=== PATIENT | female | born 1935 | race Caucasian/White ===

== ENCOUNTER 2018-07-02 16:29 | Inpatient (IN) | payer OTHER ==
[2018-07-02] MEDS ORDERED: Vancomycin 1 gm/NS 200 ml 1 GM/200 ML BAG IVPB STA (17:36)
[2018-07-02 17:52] LABS: BASO # 0.1 K/uL (0.0-0.2); EOS % 0.2 % (0.0-4.0); HEMOGLOBIN 11.4 g/dL (11.0-16.0); LYMPH # 1.2 K/uL (1.0-4.3); LYMPH % 9.2 % (20.0-40.0); MEAN CELL VOLUME 87.1 fL (81.0-99.0); MEAN CORPUSCULAR HGB CONC 32.2 g/dL (33.0-37.0); MEAN PLATELET VOLUME 8.3 fL (7.2-11.7); MONO # 0.8 K/uL (0.0-0.8); NEUT % 83.6 % (50.0-75.0); PLATELET COUNT 305 K/uL (130-400); RBC 4.08 Mil/uL (3.80-5.20); RED CELL DISTRIBUTION WIDTH 13.8 % (11.5-14.5); WHITE BLOOD COUNT 13.2 K/uL (4.8-10.8)
--- NOTE | 2018-07-02 17:57 | C.PDOC ---
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 Patient denies fever, chills, chest pain and shortness of breath at this time. Time Seen by Provider: 07/02/18 17:03 Chief Complaint (Nursing): Lower Extremity Problem/Injury History Per: Patient History/Exam Limitations: no limitations Onset/Duration Of Symptoms: Other (three weeks ) Current Symptoms Are (Timing): Still Present Additional History Per: Patient Past Medical History Reviewed: Historical Data, Nursing Documentation, Vital Signs Vital Signs: Last Vital Signs Temp 99.6 F 07/02/18 16:38 Pulse 97 H 07/02/18 16:38 Resp 20 07/02/18 16:38 BP 145/64 07/02/18 16:38 Pulse Ox 99 07/02/18 16:38 - Medical History PMH: Arthritis, Diabetes, Gall Bladder Disease, HTN, Hypercholesterolemia, Osteoporosis Denies: Chronic Kidney Disease Surgical History: Cholecystectomy - [facility] Procedures CENTRAL VENOUS CATHETER PLACEMENT WITH GUIDANCE (11/06/13) CLOSED FX REDUCT HUMERUS (03/17/14) TOE AMPUTATION (11/06/13) Family History: States: Unknown Family Hx - Social History Hx Tobacco Use: No Hx Alcohol Use: No Hx Substance Use: No - Immunization History Hx Tetanus Toxoid Vaccination: No Hx Influenza Vaccination: No Hx Pneumococcal Vaccination: No Review Of Systems Constitutional: Negative for: Fever, Chills Cardiovascular: Negative for: Chest Pain Respiratory: Negative for: Shortness of Breath Skin: Positive for: Other (redness, swelling, and pain to left 1st toe) Physical Exam - Physical Exam Additional Physical Exam Comments: Constitutional: No acute distress. Head: Normocephalic. Atraumatic. Eyes: PERRL. ENT: Moist mucous membranes. Neck: Supple. Cardiovascular: Regular rate. Radial pulse 2+ bilaterally. Chest: No tenderness. Respiratory: Clear to auscultation bilaterally. GI: Soft. Nontender. Nondistended. Back: No CVA tenderness. Musculoskeletal: bullae, purulent discharge, erythema and tenderness to left 1st toe. amputated right 1st toe. Skin: No rash. Neurologic: Alert, no focal deficit. ED Course And Treatment - Laboratory Results Result Diagrams: 07/02/18 17:43 07/02/18 17:43 ECG: Interpreted By Me, Viewed By Me ECG Rhythm: Sinus Rhythm, L BBB Rate From EC O2 Sat by Pulse Oximetry: 99 (on RA) Pulse Ox Interpretation: Normal Medical Decision Making Medical Decision Making: Progress: Bloodwork, CXR, EKG ordered and reviewed. Vancomycin IVPB given. EKG: Normal Sinus Rhythm at rate 87bpm. Left bundle branch block. Dr. Ramirez accepts patient to his service. Disposition - Disposition Disposition: HOSPITALIZED Disposition Time: 18:45 Condition: GUARDED Forms: [employer] (Spanish) - Clinical Impression Clinical Impression: Cellulitis - Scribe Statement The provider has reviewed the documentation as recorded by the Scribe (Arianna Ramirez) Provider Attestation: All medical record entries made by the Scribe were at my direction and personally dictated by me. I have reviewed the chart and agree that the record accurately reflects my personal performance of the history, physical exam, medical decision making, and the department course for this patient. I have also personally directed, reviewed, and agree with the discharge instructions and disposition.
[2018-07-02 18:09] LABS: INR 1.1; PROTHROMBIN TIME 12.3 SECONDS (9.7-12.2)
[2018-07-02 18:36] LABS: ALB/GLOB RATIO 1.2 (1.0-2.1); ALBUMIN 4.3 g/dL (3.5-5.0); CALCIUM 9.1 mg/dl (8.6-10.4)
[2018-07-02] MEDS ORDERED: (Novolin R) Insulin Human Regular 100 units/ml vial SC STA (18:44)
[2018-07-02] MEDS ORDERED: (Novolin R) Insulin Human Regular 100 units/ml vial ONE (19:24)
[2018-07-02 19:49] LABS: BANDS 1 % (0-2); LYMPHOCYTE 12 % (20-40); MONOCYTE 4 % (0-10); NEUTROPHIL 83 % (50-75); PLATELET ESTIMATE NORMAL (NORMAL); TOTAL CELLS COUNTED 100
[2018-07-02] MEDS: (Novolog) Insulin Aspart, Recombinant 100 u/ml 10 ml vial SC SCH (22:37)
[2018-07-02] MEDS: Piperacill/Tazo 3.375gm in Dex 3.375 GM/50 ML BAG IVPB SCH (22:38)
[2018-07-03] MEDS: Piperacill/Tazo 3.375gm in Dex 3.375 GM/50 ML BAG IVPB SCH ×3 (05:27→22:25)
[2018-07-03] MEDS: (Novolog) Insulin Aspart, Recombinant 100 u/ml 10 ml vial SC SCH ×5 (07:47→21:22)
--- NOTE | 2018-07-03 09:39 | RAD ---
HISTORY: cellulitis COMPARISON: Chest x-ray performed 11/10/13 TECHNIQUE: Chest, one view. FINDINGS: Examination limited by habitus. LUNGS: No focal consolidation. 8 mm nodular opacity is seen at the level of the 2nd anterior rib. Please note that chest x-ray has limited sensitivity for the detection of pulmonary masses. PLEURA: No significant pleural effusion identified. No definite pneumothorax . CARDIOVASCULAR: Heart size appears within normal limits. No significant atherosclerotic calcification present. OSSEOUS STRUCTURES: Degenerative changes. VISUALIZED UPPER ABDOMEN: Unremarkable. OTHER FINDINGS: None. IMPRESSION: No focal consolidation. 8 mm nodular opacity is seen at the level of the 2nd anterior rib, possibly related to confluence of shadows. Outpatient CT of the chest may be considered for further evaluation if indicated. Study marked for PA review.
[2018-07-03] MEDS ORDERED: GlipiZIDE 2.5 mg Tab PO SCH (10:00)
[2018-07-03] MEDS ORDERED: FENOFIBRATE MICRONIZED 200 MG PO SCH (10:00)
--- NOTE | 2018-07-03 10:44 | CARD ---
APPROVED REPORT Date of service: 07/02/2018 EKG Measurement Heart [id number] <Conclusion> Normal sinus rhythm Possible Left atrial enlargement Left axis deviation Left bundle branch block Abnormal ECG
--- NOTE | 2018-07-03 18:29 | CP.PCM.HP ---
Past Patient History - Past Medical History & Family History Past Medical History?: Yes - Past Social History Smoking Status: Never Smoked - CARDIAC Hx Cardiac Disorders: Yes Hx Hypercholesterolemia: Yes Hx Hypertension: Yes - PULMONARY Hx Respiratory Disorders: No - NEUROLOGICAL Hx Neurological Disorder: No - HEENT Hx HEENT Problems: No - RENAL Hx Chronic Kidney Disease: No - ENDOCRINE/METABOLIC Hx Endocrine Disorders: Yes Hx Diabetes Mellitus Type 1: Yes - HEMATOLOGICAL/ONCOLOGICAL Hx Blood Disorders: No - INTEGUMENTARY Hx Dermatological Problems: No - MUSCULOSKELETAL/RHEUMATOLOGICAL Hx Musculoskeletal Disorders: Yes Hx Arthritis: Yes Hx Falls: Yes Hx Osteoporosis: Yes - GASTROINTESTINAL Hx Gastrointestinal Disorders: Yes Hx Gall Bladder Disease: Yes - GENITOURINARY/GYNECOLOGICAL Hx Genitourinary Disorders: No - PSYCHIATRIC Hx Psychophysiologic Disorder: No Hx Substance Use: No - SURGICAL HISTORY Hx Surgeries: Yes Hx Cholecystectomy: Yes Hx Orthopedic Surgery: Yes Other/Comment: right 1st toe amputation 2014 - ANESTHESIA Hx Anesthesia: Yes Hx Anesthesia Reactions: No Hx Malignant Hyperthermia: No Meds Allergies/Adverse Reactions: Allergies Allergy/AdvReac Type Severity Reaction Status Date / Time No Known Allergies Allergy Verified 07/02/18 16:41 Physical Exam - Constitutional Appears: Well - Head Exam Head Exam: ATRAUMATIC, NORMAL INSPECTION, NORMOCEPHALIC - Eye Exam Eye Exam: EOMI, Normal appearance, PERRL Pupil Exam: NORMAL ACCOMODATION, PERRL - ENT Exam ENT Exam: Mucous Membranes Moist, Normal Exam - Neck Exam Neck exam: Positive for: Normal Inspection - Respiratory Exam Respiratory Exam: Decreased Breath Sounds - Cardiovascular Exam Cardiovascular Exam: REGULAR RHYTHM, +S1, +S2 - GI/Abdominal Exam GI & Abdominal Exam: Diminished Bowel Sounds, Soft - Rectal Exam Rectal Exam: Deferred Results - Vital Signs Recent Vital Signs: Last Vital Signs Temp 98.7 F 07/03/18 15:00 Pulse 86 07/03/18 15:00 Resp 20 07/03/18 15:00 BP 134/70 07/03/18 15:00 Pulse Ox 96 07/03/18 15:00 - Labs Result Diagrams: 07/02/18 17:43 07/02/18 17:43 Labs: Laboratory Results - last 24 hr 07/02/18 07/02/18 07/02/18 17:43 17:43 20:48 Neutrophils % (Manual) 83 H Band Neutrophils % 1 Lymphocytes % (Manual) 12 L Monocytes % (Manual) 4 Platelet Estimate Normal Sodium 129 L Potassium 4.4 Chloride 91 L Carbon Dioxide 24 Anion Gap 18 BUN 26 H Creatinine 1.4 H Est GFR ( Amer) 44 Est GFR (Non-Af Amer) 36 POC Glucose (mg/dL) 477 H* Random Glucose 599 H* D Calcium 9.1 Total Bilirubin 0.9 AST 19 ALT 7 L D Alkaline Phosphatase 75 Total Protein 7.8 Albumin 4.3 Globulin 3.5 Albumin/Globulin Ratio 1.2 07/02/18 07/03/18 07/03/18 22:22 07:33 11:05 Neutrophils % (Manual) Band Neutrophils % Lymphocytes % (Manual) Monocytes % (Manual) Platelet Estimate Sodium Potassium Chloride Carbon Dioxide Anion Gap BUN Creatinine Est GFR ( Amer) Est GFR (Non-Af Amer) POC Glucose (mg/dL) 386 H 255 H 196 H Random Glucose Calcium Total Bilirubin AST ALT Alkaline Phosphatase Total Protein Albumin Globulin Albumin/Globulin Ratio 07/03/18 16:22 Neutrophils % (Manual) Band Neutrophils % Lymphocytes % (Manual) Monocytes % (Manual) Platelet Estimate Sodium Potassium Chloride Carbon Dioxide Anion Gap BUN Creatinine Est GFR ( Amer) Est GFR (Non-Af Amer) POC Glucose (mg/dL) 190 H Random Glucose Calcium Total Bilirubin AST ALT Alkaline Phosphatase Total Protein Albumin Globulin Albumin/Globulin Ratio
[2018-07-04] MEDS: Piperacill/Tazo 3.375gm in Dex 3.375 GM/50 ML BAG IVPB SCH ×3 (05:26→20:47)
[2018-07-04] MEDS: (Novolog) Insulin Aspart, Recombinant 100 u/ml 10 ml vial SC SCH ×4 (07:40→21:52)
--- NOTE | 2018-07-04 11:53 | CP.PCM.CON ---
History of Present Illness - History of Present Illness History of Present Illness: Podiatry consult note - Dr. Mckay 83F with pmhx of diabetes and arthritis seen and evaluated at bedside this AM for left hallux redness and blistering. States that she started noticing the redness and mild swelling around 3 weeks ago and that is has gotten worse over time. States that she wears tight shoes which she contributes to part of the reason her toe looks the way it does. States that the toe causes her minimal pain but she was concerned with infection as she had her right big toe amputated in the past. Denies n/v/f/c/sob/cp today and has no other acute complaints PMHx: above PSHx: right hallux amputation All: NKDA Past Patient History - Past Medical History & Family History Past Medical History?: Yes - Past Social History Smoking Status: Never Smoked - CARDIAC Hx Cardiac Disorders: Yes Hx Hypercholesterolemia: Yes Hx Hypertension: Yes - PULMONARY Hx Respiratory Disorders: No - NEUROLOGICAL Hx Neurological Disorder: No - HEENT Hx HEENT Problems: No - RENAL Hx Chronic Kidney Disease: No - ENDOCRINE/METABOLIC Hx Diabetes Mellitus Type 1: Yes - HEMATOLOGICAL/ONCOLOGICAL Hx Blood Disorders: No - INTEGUMENTARY Hx Dermatological Problems: No - MUSCULOSKELETAL/RHEUMATOLOGICAL Hx Arthritis: Yes - GASTROINTESTINAL Hx Gastrointestinal Disorders: Yes Hx Gall Bladder Disease: Yes - GENITOURINARY/GYNECOLOGICAL Hx Genitourinary Disorders: No - PSYCHIATRIC Hx Psychophysiologic Disorder: No Hx Substance Use: No - SURGICAL HISTORY Hx Surgeries: Yes Hx Cholecystectomy: Yes Hx Orthopedic Surgery: Yes Other/Comment: right 1st toe amputation 2013 - ANESTHESIA Hx Anesthesia: Yes Hx Anesthesia Reactions: No Hx Malignant Hyperthermia: No Meds Allergies/Adverse Reactions: Allergies Allergy/AdvReac Type Severity Reaction Status Date / Time No Known Allergies Allergy Verified 07/02/18 16:41 - Medications Medications: Current Medications Aspirin (Ecotrin) 81 mg PO DAILY [facility] Last Admin: 07/04/18 09:29 Dose: 81 mg Glipizide (Glucotrol) 5 mg PO DAILY [facility] Last Admin: 07/04/18 09:29 Dose: 5 mg Heparin Sodium (Porcine) (Heparin) 5,000 units SC Q12 [facility] Last Admin: 07/04/18 09:30 Dose: 5,000 units Home Med (Fenofibrate,Micronized [Fenofibrate]) 200 mg PO DAILY [facility] Piperacillin Sod/Tazobactam Sod (Zosyn 3.375 Gm Iv Premix) 3.375 gm in 50 mls @ 100 mls/hr IVPB Q8H [facility]; Protocol Last Admin: 07/04/18 05:26 Dose: 100 mls/hr Insulin Aspart (Novolog) 0 unit SC ACHS [facility]; Protocol Last Admin: 07/04/18 11:26 Dose: 2 units Metformin HCl (Glucophage Xr) 500 mg PO BIDCC [facility] Last Admin: 07/04/18 09:29 Dose: 500 mg Pioglitazone HCl (Actos) 45 mg PO DAILY [facility] Last Admin: 07/04/18 10:27 Dose: Not Given Rosuvastatin Calcium (Crestor) 10 mg PO HS [facility] Sitagliptin Phosphate (Januvia) 100 mg PO DAILY [facility] Sodium Hypochlorite (Dakins Solution 0.5%) 10 ml TOP DAILY [facility] Physical Exam - Constitutional Appears: Well, Non-toxic, No Acute Distress - Head Exam Head Exam: ATRAUMATIC, NORMOCEPHALIC - Extremities Exam Additional comments: LLE focused exam VASC: DP and PT pulses palpable; cap refill <3 seconds to all digits; temp gradient warm to warm; edema noted locally at the hallux DERM: blister formation appreciated at the hallux dorsally with closed superifical wound at the first MPJ; erythema noted to the digit; no tunneling, drainage, or clinical signs of infection noted ORTHO: mild pain ROM of the hallux, no pain on palpation of blister or wound NEURO: gross and protective sensation intact - Neurological Exam Neurological exam: Alert, Oriented x3 - Psychiatric Exam Psychiatric exam: Normal Affect, Normal Mood Results - Vital Signs Recent Vital Signs: Last Vital Signs Temp 97.6 F 07/04/18 07:44 Pulse 79 07/04/18 07:44 Resp 20 07/04/18 07:44 BP 121/70 07/04/18 07:44 Pulse Ox 95 07/04/18 07:44 - Labs Result Diagrams: 07/02/18 17:43 07/02/18 17:43 Labs: Laboratory Results - last 24 hr 07/03/18 07/03/18 07/04/18 16:22 20:54 07:28 POC Glucose (mg/dL) 190 H 220 H 280 H Assessment & Plan - Assessment and Plan (Free Text) Assessment: 83F with pmhx of diabetes and arthritis seen at bedside with 1) left hallux blister and 2) closed superficial pressure ulceration at first MPJ Plan: Patient seen and evaluated Discussed in detail with Dr. Mckay Afebrile, WBC 13.2 (07/02) Dakins ordered Dressed with saline soaked dressing and DSD Counseled on appropriate shoegear and diabetic footcare Abx and pain management per medicine Thank you for the consult Will continue to follow patient while in house Further recs per Dr. Mckay - Date & Time Date: 07/04/18 Time: 11:58
--- NOTE | 2018-07-04 14:23 | CP.PCM.CON ---
History of Present Illness - History of Present Illness History of Present Illness: Pt seen at bedside for eval of left foot abscess/osteo. Drained at bedside and did wound cultures. Will order stat x-rays, mri of left foot and arterial dopplers. Will decide on plan after testing comes back. Consulted Dr. Brunner for ID and Dr. Hobson for vasc eval. Will put in wound care orders and cont to monitor closely. Past Patient History - Past Medical History & Family History Past Medical History?: Yes - Past Social History Smoking Status: Never Smoked - CARDIAC Hx Cardiac Disorders: Yes Hx Hypercholesterolemia: Yes Hx Hypertension: Yes - PULMONARY Hx Respiratory Disorders: No - NEUROLOGICAL Hx Neurological Disorder: No - HEENT Hx HEENT Problems: No - RENAL Hx Chronic Kidney Disease: No - ENDOCRINE/METABOLIC Hx Diabetes Mellitus Type 1: Yes - HEMATOLOGICAL/ONCOLOGICAL Hx Blood Disorders: No - INTEGUMENTARY Hx Dermatological Problems: No - MUSCULOSKELETAL/RHEUMATOLOGICAL Hx Arthritis: Yes - GASTROINTESTINAL Hx Gastrointestinal Disorders: Yes Hx Gall Bladder Disease: Yes - GENITOURINARY/GYNECOLOGICAL Hx Genitourinary Disorders: No - PSYCHIATRIC Hx Psychophysiologic Disorder: No Hx Substance Use: No - SURGICAL HISTORY Hx Surgeries: Yes Hx Cholecystectomy: Yes Hx Orthopedic Surgery: Yes Other/Comment: right 1st toe amputation 2014 - ANESTHESIA Hx Anesthesia: Yes Hx Anesthesia Reactions: No Hx Malignant Hyperthermia: No Meds Allergies/Adverse Reactions: Allergies Allergy/AdvReac Type Severity Reaction Status Date / Time No Known Allergies Allergy Verified 07/02/18 16:41 - Medications Medications: Current Medications Aspirin (Ecotrin) 81 mg PO DAILY [facility] Last Admin: 07/04/18 09:29 Dose: 81 mg Glipizide (Glucotrol) 5 mg PO DAILY [facility] Last Admin: 07/04/18 09:29 Dose: 5 mg Heparin Sodium (Porcine) (Heparin) 5,000 units SC Q12 [facility] Last Admin: 07/04/18 09:30 Dose: 5,000 units Home Med (Fenofibrate,Micronized [Fenofibrate]) 200 mg PO DAILY [facility] Piperacillin Sod/Tazobactam Sod (Zosyn 3.375 Gm Iv Premix) 3.375 gm in 50 mls @ 100 mls/hr IVPB Q8H [facility]; Protocol Last Admin: 07/04/18 13:15 Dose: 100 mls/hr Insulin Aspart (Novolog) 0 unit SC ACHS [facility]; Protocol Last Admin: 07/04/18 11:26 Dose: 2 units Metformin HCl (Glucophage Xr) 500 mg PO BIDCC [facility] Last Admin: 07/04/18 09:29 Dose: 500 mg Pioglitazone HCl (Actos) 45 mg PO DAILY [facility] Last Admin: 07/04/18 10:27 Dose: Not Given Rosuvastatin Calcium (Crestor) 10 mg PO HS [facility] Sitagliptin Phosphate (Januvia) 100 mg PO DAILY [facility] Sodium Hypochlorite (Dakins Solution 0.5%) 0 ml TOP DAILY [facility] Results - Vital Signs Recent Vital Signs: Last Vital Signs Temp 97.6 F 07/04/18 07:44 Pulse 79 07/04/18 07:44 Resp 20 07/04/18 07:44 BP 121/70 07/04/18 07:44 Pulse Ox 95 07/04/18 07:44 - Labs Result Diagrams: 07/02/18 17:43 07/02/18 17:43 Labs: Laboratory Results - last 24 hr 07/03/18 07/03/18 07/04/18 16:22 20:54 07:28 POC Glucose (mg/dL) 190 H 220 H 280 H
--- NOTE | 2018-07-04 17:02 | MRI ---
Date of service: 07/04/2018 PROCEDURE: MRI of the left foot without contrast. HISTORY: abscess/osteo left 1st MPJ foot COMPARISON: No prior similar study available for comparison. X-ray of left foot was obtained on 07/04/2018 TECHNIQUE: Axial coronal and sagittal MRI images of the left foot were obtained without contrast administration. FINDINGS: There is a focal bony erosion surrounding with bone marrow edema at the lateral aspect of the distal 1st metatarsal bone suspicious for osteomyelitis. There is adjacent subcutaneous inflammatory changes and skin ulcer noted. No definite evidence of drainable fluid collection in this noncontrast study. Moderate hallux valgus deformity noted. There is mild subluxation at the 1st metatarsal-phalangeal joint noted. No evidence of other bone marrow edema or bony cortical erosion in rest of the left foot. Soft tissue edema noted at the mid and distal portion of the left foot. First toe moderate soft tissue swelling is also noted. Arthritic degenerative changes noted in the left foot. IMPRESSION: Findings suspicious for focal osteomyelitis at the lateral aspect of the distal 1st toe. Adjacent inflammatory changes and skin ulcer. Diffuse soft tissue edema in the mid and distal left foot. Mild subluxation at the 1st tarsal metatarsal joint.
--- NOTE | 2018-07-04 17:27 | RAD ---
Date of service: 07/04/2018 PROCEDURE: Left Foot Radiographs. HISTORY: osteo COMPARISON: Comparison is made to the previous study dated 11/05/2016 FINDINGS: BONES: Suspicious for small new erosion at the lateral aspect of the distal 1st toe adjacent to skin ulcer. Otherwise no significant interval changes. JOINTS: Hallux valgus deformity is again noted. Degenerative changes and mild subluxation at the of 1st to 3rd metatarsal-phalangeal joints is again noted. SOFT TISSUES: Normal. OTHER FINDINGS: None. IMPRESSION: Possible small bony erosion suggestive of osteomyelitis at the lateral aspect of the distal 1st toe. Adjacent skin ulcer and subcutaneous inflammatory changes.
--- NOTE | 2018-07-04 18:14 | CP.PCM.PN ---
Subjective - Date & Time of Evaluation Date of Evaluation: 07/04/18 Time of Evaluation: 08:00 - Subjective Subjective: clinically same Objective - Vital Signs/Intake and Output Vital Signs (last 24 hours): Temp Pulse Resp BP Pulse Ox 100.5 F H 79 20 128/71 96 07/04/18 17:05 07/04/18 16:00 07/04/18 16:00 07/04/18 16:00 07/04/18 16:00 Intake and Output: 07/04/18 07/04/18 06:59 18:59 Intake Total 200 Balance 200 - Medications Medications: Current Medications Acetaminophen (Tylenol 325mg Tab) 650 mg PO Q6 PRN PRN Reason: Fever >100.4 F Last Admin: 07/04/18 17:05 Dose: 650 mg Aspirin (Ecotrin) 81 mg PO DAILY [facility] Last Admin: 07/04/18 09:29 Dose: 81 mg Fenofibrate (Tricor) 48 mg PO DAILY [facility] Glipizide (Glucotrol) 5 mg PO DAILY [facility] Last Admin: 07/04/18 09:29 Dose: 5 mg Heparin Sodium (Porcine) (Heparin) 5,000 units SC Q12 [facility] Last Admin: 07/04/18 09:30 Dose: 5,000 units Piperacillin Sod/Tazobactam Sod (Zosyn 3.375 Gm Iv Premix) 3.375 gm in 50 mls @ 100 mls/hr IVPB Q8H [facility]; Protocol Last Admin: 07/04/18 13:15 Dose: 100 mls/hr Insulin Aspart (Novolog) 0 unit SC ACHS [facility]; Protocol Last Admin: 07/04/18 17:05 Dose: 2 units Metformin HCl (Glucophage Xr) 500 mg PO BIDCC [facility] Last Admin: 07/04/18 17:04 Dose: 500 mg Pioglitazone HCl (Actos) 45 mg PO DAILY [facility] Last Admin: 07/04/18 10:27 Dose: Not Given Rosuvastatin Calcium (Crestor) 10 mg PO HS [facility] Sitagliptin Phosphate (Januvia) 25 mg PO DAILY [facility] Last Admin: 07/04/18 17:04 Dose: 25 mg Sodium Hypochlorite (Dakins Solution 0.25%) 1 ml TOP QSHIFT [facility] - Labs Labs: 07/02/18 17:43 07/02/18 17:43 PT 12.3 SECONDS (9.7-12.2) H 07/02/18 17:43 INR 1.1 07/02/18 17:43 APTT 30 SECONDS (21-34) 07/02/18 17:43 - Constitutional Appears: Well - Head Exam Head Exam: ATRAUMATIC, NORMAL INSPECTION, NORMOCEPHALIC - Eye Exam Eye Exam: EOMI, Normal appearance, PERRL Pupil Exam: NORMAL ACCOMODATION, PERRL - ENT Exam ENT Exam: Mucous Membranes Moist, Normal Exam - Neck Exam Neck Exam: Full ROM, Normal Inspection. absent: Lymphadenopathy - Respiratory Exam Respiratory Exam: Decreased Breath Sounds - Cardiovascular Exam Cardiovascular Exam: REGULAR RHYTHM, +S1, +S2 - GI/Abdominal Exam GI & Abdominal Exam: Soft, Diminished Bowel Sounds - Rectal Exam Rectal Exam: Deferred
[2018-07-04] MEDS: Dakin's Topical 0.25%-Half Strength (480 ml) TOP SCH (21:11)
[2018-07-05] MEDS: Dakin's Topical 0.25%-Half Strength (480 ml) TOP SCH ×3 (06:16→21:51)
[2018-07-05] MEDS: Piperacill/Tazo 3.375gm in Dex 3.375 GM/50 ML BAG IVPB SCH ×3 (06:22→21:48)
[2018-07-05] MEDS: (Novolog) Insulin Aspart, Recombinant 100 u/ml 10 ml vial SC SCH ×4 (07:43→21:52)
[2018-07-05 08:25] LABS: BASO # 0.1 K/uL (0.0-0.2); BASO % 0.6 % (0.0-2.0); EOS # 0.2 K/uL (0.0-0.7); EOS % 1.1 % (0.0-4.0); HEMOGLOBIN 10.5 g/dL (11.0-16.0); LYMPH # 1.7 K/uL (1.0-4.3); LYMPH % 11.7 % (20.0-40.0); MEAN CELL VOLUME 86.4 fL (81.0-99.0); MEAN CORPUSCULAR HEMOGLOBIN 28.4 pg (27.0-31.0); MEAN CORPUSCULAR HGB CONC 32.9 g/dL (33.0-37.0); MEAN PLATELET VOLUME 7.9 fL (7.2-11.7); MONO # 0.8 K/uL (0.0-0.8); MONO % 5.5 % (0.0-10.0); NEUT # 11.5 K/uL (1.8-7.0); NEUT % 81.1 % (50.0-75.0); RBC 3.7 Mil/uL (3.80-5.20); RED CELL DISTRIBUTION WIDTH 13.9 % (11.5-14.5); WHITE BLOOD COUNT 14.2 K/uL (4.8-10.8)
--- NOTE | 2018-07-05 08:27 | CP.PCM.CON ---
History of Present Illness - History of Present Illness History of Present Illness: Vascular Surgery: Dr. Hobson Pt is an 83F with PMHx significant for DM & arthritis who presented to with complaints of Left foot pain and swelling around big toe. Pt states the pain and redness started about 2 months ago but has been getting worse. She contributes the problem to her tight shoes & states she had a similar issue in the past for which she needed R big toe amputation. Pt states she also noticed some purulent discharge from her Left big toe and decided to come to the hospital. She admits to ambulating but states it has been painful to walk on her left foot. Denies fevers/chills, chest pain or SOB. Vascular surgery called to evaluate for PVD. PMHx:as listed above PSHx: R hallux amputation SocialHx: denies smoking, drugs, EtOH NKDA Review of Systems - Review of Systems All systems: reviewed and no additional remarkable complaints except (as per HPI) Past Patient History - Past Medical History & Family History Past Medical History?: Yes - Past Social History Smoking Status: Never Smoked - CARDIAC Hx Cardiac Disorders: Yes Hx Hypercholesterolemia: Yes Hx Hypertension: Yes - PULMONARY Hx Respiratory Disorders: No - NEUROLOGICAL Hx Neurological Disorder: No - HEENT Hx HEENT Problems: No - RENAL Hx Chronic Kidney Disease: No - ENDOCRINE/METABOLIC Hx Diabetes Mellitus Type 1: Yes - HEMATOLOGICAL/ONCOLOGICAL Hx Blood Disorders: No - INTEGUMENTARY Hx Dermatological Problems: No - MUSCULOSKELETAL/RHEUMATOLOGICAL Hx Arthritis: Yes - GASTROINTESTINAL Hx Gastrointestinal Disorders: Yes Hx Gall Bladder Disease: Yes - GENITOURINARY/GYNECOLOGICAL Hx Genitourinary Disorders: No - PSYCHIATRIC Hx Psychophysiologic Disorder: No Hx Substance Use: No - SURGICAL HISTORY Hx Surgeries: Yes Hx Cholecystectomy: Yes Hx Orthopedic Surgery: Yes Other/Comment: right 1st toe amputation 2013 - ANESTHESIA Hx Anesthesia: Yes Hx Anesthesia Reactions: No Hx Malignant Hyperthermia: No Meds Allergies/Adverse Reactions: Allergies Allergy/AdvReac Type Severity Reaction Status Date / Time No Known Allergies Allergy Verified 07/02/18 16:41 - Medications Medications: Current Medications Acetaminophen (Tylenol 325mg Tab) 650 mg PO Q6 PRN PRN Reason: Fever >100.4 F Last Admin: 07/04/18 17:05 Dose: 650 mg Aspirin (Ecotrin) 81 mg PO DAILY [facility] Last Admin: 07/04/18 09:29 Dose: 81 mg Fenofibrate (Tricor) 48 mg PO DAILY [facility] Glipizide (Glucotrol) 5 mg PO DAILY [facility] Last Admin: 07/04/18 09:29 Dose: 5 mg Heparin Sodium (Porcine) (Heparin) 5,000 units SC Q12 [facility] Last Admin: 07/04/18 21:44 Dose: 5,000 units Piperacillin Sod/Tazobactam Sod (Zosyn 3.375 Gm Iv Premix) 3.375 gm in 50 mls @ 100 mls/hr IVPB Q8H [facility]; Protocol Last Admin: 07/05/18 06:22 Dose: 100 mls/hr Insulin Aspart (Novolog) 0 unit SC ACHS [facility]; Protocol Last Admin: 07/05/18 07:43 Dose: Not Given Metformin HCl (Glucophage Xr) 500 mg PO BIDCC [facility] Last Admin: 07/04/18 17:04 Dose: 500 mg Pioglitazone HCl (Actos) 45 mg PO DAILY [facility] Last Admin: 07/04/18 10:27 Dose: Not Given Rosuvastatin Calcium (Crestor) 10 mg PO HS [facility] Last Admin: 07/04/18 21:43 Dose: 10 mg Sitagliptin Phosphate (Januvia) 25 mg PO DAILY [facility] Last Admin: 07/04/18 17:04 Dose: 25 mg Sodium Hypochlorite (Dakins Solution 0.25%) 1 ml TOP QSHIFT [facility] Last Admin: 07/05/18 06:16 Dose: Not Given Physical Exam - Constitutional Appears: Well, No Acute Distress - Head Exam Head Exam: ATRAUMATIC, NORMOCEPHALIC - Eye Exam Eye Exam: Normal appearance - ENT Exam ENT Exam: Mucous Membranes Moist - Respiratory Exam Respiratory Exam: NORMAL BREATHING PATTERN - Cardiovascular Exam Cardiovascular Exam: RRR - GI/Abdominal Exam GI & Abdominal Exam: Soft. absent: Tenderness - Extremities Exam Additional comments: LLE: warm, hallux with erythema and pinpoint area of purulent drainage, tender to palpation, Non-palpable DP/PT, biphasic doppler signals in DP/PT RLE: warm, hallux amputation - Neurological Exam Neurological exam: Alert, Oriented x3 - Skin Skin Exam: Dry, Warm Results - Vital Signs Recent Vital Signs: Last Vital Signs Temp 98.8 F 07/05/18 08:01 Pulse 78 07/05/18 08:01 Resp 20 07/05/18 08:01 BP 147/69 07/05/18 08:01 Pulse Ox 95 07/05/18 08:01 - Labs Result Diagrams: 07/02/18 17:43 07/02/18 17:43 Labs: Laboratory Results - last 24 hr 07/04/18 07/04/18 07/04/18 11:07 16:45 21:13 POC Glucose (mg/dL) 156 H 188 H 128 H 07/05/18 07:10 POC Glucose (mg/dL) 72 Assessment & Plan - Assessment and Plan (Free Text) Assessment: 83F with Left hallux cellulitis/osteomylitis; eval for PVD Plan: - f/u MIGUEL ÁNGEL/PVRs - possible CTA if improvement in Cr - cont IV ABX - wound management per podiatry - d/w Dr. Jazlyn Pulliam
[2018-07-05 08:55] LABS: CALCIUM 8.7 mg/dl (8.6-10.4)
--- NOTE | 2018-07-05 09:47 | CP.PCM.PN ---
Subjective - Date & Time of Evaluation Date of Evaluation: 07/05/18 Time of Evaluation: 09:47 - Subjective Subjective: Podiatry progress note - Dr. Mckay 83F seen and evaluated at bedside this AM with Dr. Mckay. Resting comfortably. Denies pain or acute events overnight. States nurse changed dressing overnight. Denies n/v/f/c/sob/cp and has no other acute complaints. Objective - Vital Signs/Intake and Output Vital Signs (last 24 hours): Temp Pulse Resp BP Pulse Ox 98.8 F 78 20 147/69 95 07/05/18 08:01 07/05/18 08:01 07/05/18 08:01 07/05/18 08:01 07/05/18 08:01 - Medications Medications: Current Medications Acetaminophen (Tylenol 325mg Tab) 650 mg PO Q6 PRN PRN Reason: Fever >100.4 F Last Admin: 07/04/18 17:05 Dose: 650 mg Aspirin (Ecotrin) 81 mg PO DAILY [facility] Last Admin: 07/04/18 09:29 Dose: 81 mg Fenofibrate (Tricor) 48 mg PO DAILY [facility] Glipizide (Glucotrol) 5 mg PO DAILY [facility] Last Admin: 07/04/18 09:29 Dose: 5 mg Heparin Sodium (Porcine) (Heparin) 5,000 units SC Q12 [facility] Last Admin: 07/04/18 21:44 Dose: 5,000 units Piperacillin Sod/Tazobactam Sod (Zosyn 3.375 Gm Iv Premix) 3.375 gm in 50 mls @ 100 mls/hr IVPB Q8H [facility]; Protocol Last Admin: 07/05/18 06:22 Dose: 100 mls/hr Insulin Aspart (Novolog) 0 unit SC ACHS [facility]; Protocol Last Admin: 07/05/18 07:43 Dose: Not Given Metformin HCl (Glucophage Xr) 500 mg PO BIDCC [facility] Last Admin: 07/05/18 08:37 Dose: 500 mg Pioglitazone HCl (Actos) 45 mg PO DAILY [facility] Last Admin: 07/04/18 10:27 Dose: Not Given Rosuvastatin Calcium (Crestor) 10 mg PO HS [facility] Last Admin: 07/04/18 21:43 Dose: 10 mg Sitagliptin Phosphate (Januvia) 25 mg PO DAILY [facility] Last Admin: 07/04/18 17:04 Dose: 25 mg Sodium Hypochlorite (Dakins Solution 0.25%) 1 ml TOP QSHIFT [facility] Last Admin: 07/05/18 06:16 Dose: Not Given - Labs Labs: 07/05/18 08:05 07/05/18 08:05 PT 12.3 SECONDS (9.7-12.2) H 07/02/18 17:43 INR 1.1 07/02/18 17:43 APTT 30 SECONDS (21-34) 07/02/18 17:43 - Constitutional Appears: Non-toxic, No Acute Distress - Head Exam Head Exam: ATRAUMATIC - Extremities Exam Additional comments: LLE focused exam VASC: DP and PT pulses palpable; cap refill <3 seconds to all digits; temp gradient warm to warm; edema noted locally at the hallux DERM: pocket opened at first mpj medially that does not probe to bone but drained 3cc of pus today; blister deroofed, clinical signs of infection present, suspicion for deeper infection appreciated ORTHO: mild pain ROM of the hallux, no pain on palpation of blister or wound NEURO: gross and protective sensation diminished - Neurological Exam Neurological Exam: Alert, Awake - Psychiatric Exam Psychiatric exam: Normal Affect, Normal Mood Assessment and Plan - Assessment and Plan (Free Text) Assessment: 83F with left hallux ulceration, infected Plan: Patient seen and evaluated with Dr. Mckay Febrile overnight, afebrile today, WBC 14.2 Wound cultures pending Left foot MRI - possible osteomyelitis of first digit, not conclusive Left foot X-ray - osteoarthritic changes to first MPJ Dressing: Dakins soaked gauze, kerlix Plan: I and D of left hallux tomorrow NPO ordered Medical clearance appreciated Dr. Brunner consulted - recs appreciated Dr. Hobson consulted - vascular eval Arterial studies pending Podiatry to follow
[2018-07-05] MEDS ORDERED: Dakin's Topical 0.5%-Full Strength (480 ml) TOP SCH (10:00)
--- NOTE | 2018-07-05 10:24 | CP.PCM.PN ---
Subjective - Date & Time of Evaluation Date of Evaluation: 07/05/18 Time of Evaluation: 10:20 - Subjective Subjective: Pt seen at bedside for f/u left foot abscess/ulcer. Pt spiked a temp last night and WBC increase to 14.2. MRI is suspicious for Osteo-spoke with radiologist Dr. Rodriguez. Pt will need I+D of left foot abscess. Spoke with daughter(Valencia) and patient at bedside that we will try I+D of left foot infection and see how she responds. If the wound does not improve, she may need partial 1st Ray amp. Pt understands all risks and alternatives and consents to surgery. Heparin on hold and pt npo after midnight. Pt needs medical clearance by Dr. Avtar Ramirez. Objective - Vital Signs/Intake and Output Vital Signs (last 24 hours): Temp Pulse Resp BP Pulse Ox 98.8 F 78 20 147/69 95 07/05/18 08:01 07/05/18 08:01 07/05/18 08:01 07/05/18 08:01 07/05/18 08:01 - Medications Medications: Current Medications Acetaminophen (Tylenol 325mg Tab) 650 mg PO Q6 PRN PRN Reason: Fever >100.4 F Last Admin: 07/04/18 17:05 Dose: 650 mg Aspirin (Ecotrin) 81 mg PO DAILY [facility] Last Admin: 07/05/18 10:04 Dose: 81 mg Fenofibrate (Tricor) 48 mg PO DAILY [facility] Last Admin: 07/05/18 10:04 Dose: 48 mg Glipizide (Glucotrol) 5 mg PO DAILY [facility] Last Admin: 07/05/18 10:04 Dose: 5 mg Heparin Sodium (Porcine) (Heparin) 5,000 units SC Q12 [facility] Last Admin: 07/05/18 10:15 Dose: Not Given Piperacillin Sod/Tazobactam Sod (Zosyn 3.375 Gm Iv Premix) 3.375 gm in 50 mls @ 100 mls/hr IVPB Q8H [facility]; Protocol Last Admin: 07/05/18 06:22 Dose: 100 mls/hr Insulin Aspart (Novolog) 0 unit SC ACHS [facility]; Protocol Last Admin: 07/05/18 07:43 Dose: Not Given Metformin HCl (Glucophage Xr) 500 mg PO BIDCC [facility] Last Admin: 07/05/18 08:37 Dose: 500 mg Pioglitazone HCl (Actos) 45 mg PO DAILY [facility] Last Admin: 07/05/18 10:14 Dose: 45 mg Rosuvastatin Calcium (Crestor) 10 mg PO HS [facility] Last Admin: 07/04/18 21:43 Dose: 10 mg Sitagliptin Phosphate (Januvia) 25 mg PO DAILY [facility] Last Admin: 07/05/18 10:04 Dose: 25 mg Sodium Hypochlorite (Dakins Solution 0.25%) 1 ml TOP QSHIFT [facility] Last Admin: 07/05/18 06:16 Dose: Not Given - Labs Labs: 07/05/18 08:05 07/05/18 08:05 PT 12.3 SECONDS (9.7-12.2) H 07/02/18 17:43 INR 1.1 07/02/18 17:43 APTT 30 SECONDS (21-34) 07/02/18 17:43
--- NOTE | 2018-07-05 12:45 | CP.PCM.PN ---
Subjective - Date & Time of Evaluation Date of Evaluation: 07/05/18 Time of Evaluation: 08:15 - Subjective Subjective: clinically same Objective - Vital Signs/Intake and Output Vital Signs (last 24 hours): Temp Pulse Resp BP Pulse Ox 98.8 F 78 20 147/69 95 07/05/18 08:01 07/05/18 08:01 07/05/18 08:01 07/05/18 08:01 07/05/18 08:01 - Medications Medications: Current Medications Acetaminophen (Tylenol 325mg Tab) 650 mg PO Q6 PRN PRN Reason: Fever >100.4 F Last Admin: 07/04/18 17:05 Dose: 650 mg Aspirin (Ecotrin) 81 mg PO DAILY [facility] Last Admin: 07/05/18 10:04 Dose: 81 mg Fenofibrate (Tricor) 48 mg PO DAILY [facility] Last Admin: 07/05/18 10:04 Dose: 48 mg Glipizide (Glucotrol) 5 mg PO DAILY [facility] Last Admin: 07/05/18 10:04 Dose: 5 mg Heparin Sodium (Porcine) (Heparin) 5,000 units SC Q12 [facility] Last Admin: 07/05/18 10:15 Dose: Not Given Piperacillin Sod/Tazobactam Sod (Zosyn 3.375 Gm Iv Premix) 3.375 gm in 50 mls @ 100 mls/hr IVPB Q8H [facility]; Protocol Last Admin: 07/05/18 06:22 Dose: 100 mls/hr Insulin Aspart (Novolog) 0 unit SC ACHS [facility]; Protocol Last Admin: 07/05/18 11:42 Dose: Not Given Metformin HCl (Glucophage Xr) 500 mg PO BIDCC [facility] Last Admin: 07/05/18 08:37 Dose: 500 mg Pioglitazone HCl (Actos) 45 mg PO DAILY [facility] Last Admin: 07/05/18 10:14 Dose: 45 mg Rosuvastatin Calcium (Crestor) 10 mg PO HS [facility] Last Admin: 07/04/18 21:43 Dose: 10 mg Sitagliptin Phosphate (Januvia) 25 mg PO DAILY [facility] Last Admin: 07/05/18 10:04 Dose: 25 mg Sodium Hypochlorite (Dakins Solution 0.25%) 1 ml TOP QSHIFT [facility] Last Admin: 07/05/18 06:16 Dose: Not Given - Labs Labs: 07/05/18 08:05 07/05/18 08:05 PT 12.3 SECONDS (9.7-12.2) H 07/02/18 17:43 INR 1.1 07/02/18 17:43 APTT 30 SECONDS (21-34) 07/02/18 17:43 - Constitutional Appears: Well - Head Exam Head Exam: ATRAUMATIC, NORMAL INSPECTION, NORMOCEPHALIC - Eye Exam Eye Exam: EOMI, Normal appearance, PERRL Pupil Exam: NORMAL ACCOMODATION, PERRL - ENT Exam ENT Exam: Mucous Membranes Moist, Normal Exam - Neck Exam Neck Exam: Full ROM, Normal Inspection. absent: Lymphadenopathy - Respiratory Exam Respiratory Exam: Decreased Breath Sounds - Cardiovascular Exam Cardiovascular Exam: REGULAR RHYTHM, +S1, +S2 - GI/Abdominal Exam GI & Abdominal Exam: Soft, Diminished Bowel Sounds - Rectal Exam Rectal Exam: Deferred
--- NOTE | 2018-07-05 15:48 | CP.PCM.CON ---
History of Present Illness - History of Present Illness History of Present Illness: 83F with pmhx of diabetes and arthritis admitted for left hallux redness and blistering. States that she started noticing the redness and mild swelling around 3 weeks ago and that is has gotten worse over time. Was seen and evaluated for severe infection left hallux- r/o OM Had I and D done by Dr Mckay Arterial dopplers and MRI pending IV antibiotics ordered empirically PMHx: T2D HTN OA PSHx: right hallux amputation All: NKDA Review of Systems - Review of Systems All systems: reviewed and no additional remarkable complaints except - Constitutional Constitutional: As Per HPI - EENT Eyes: absent: As Per HPI, Blind Spots, Blurred Vision, Change in Vision, Decreased Night Vision, Diplopia, Discharge, Dry Eye, Exophthalmos, Floaters, Irritation, Itchy Eyes, Loss of Peripheral Vision, Pain, Photophobia, Requires Corrective Lenses, Sees Flashes, Spots in Vision, Tunnel Vision, Other Visual Disturbances, Loss of Vision, Other Ears: absent: As Per HPI, Decreased Hearing, Ear Discharge, Ear Pain, Tinnitus, Abnormal Hearing, Disequilibrium, Dizziness, Other Nose/Mouth/Throat: absent: As Per HPI, Epistaxis, Nasal Congestion, Nasal Discharge, Nasal Obstruction, Nasal Trauma, Nose Pain, Post Nasal Drip, Sinus Pain, Sinus Pressure, Bleeding Gums, Change in Voice, Dental Pain, Dry Mouth, Dysphagia, Halitosis, Hoarsness, Lip Swelling, Mouth Lesions, Mouth Pain, Odynophagia, Sore Throat, Throat Swelling, Tongue Swelling, Facial Pain, Neck Pain, Neck Mass, Other - Breasts Breasts: absent: As Per HPI, Change in Shape, Mass, Pain, Nipple Discharge, Nipple Inversion, Skin Changes, Swelling, Other - Cardiovascular Cardiovascular: absent: As Per HPI, Acrocyanosis, Chest Pain, Chest Pain at Rest, Chest Pain with Activity, Claudication, Diaphoresis, Dyspnea, Dyspnea on Exertion, Edema, Irregular Heart Rhythm, Pain Radiating to Arm/Neck/Jaw, Leg Edema, Leg Ulcers, Lightheadedness, Orthopnea, Palpitations, Paroxysmal Nocturnal Dyspnea, Pedal Edema, Radiating Pain, Rapid Heart Rate, Slow Heart Rate, Syncope, Other - Respiratory Respiratory: absent: As Per HPI, Cough, Dyspnea, Hemoptysis, Dyspnea on E xertion, Wheezing, Snoring, Stridor, Pain on Inspiration, Chest Congestion, Excessive Mucous Production, Change in Mucous Color, Pain with Coughing, Other - Gastrointestinal Gastrointestinal: absent: As Per HPI, Abdominal Pain, Belching, Bloating, Change in Bowel Habits, Change in Stool Character, Coffee Ground Emesis, Constipation, Cramping, Diarrhea, Dyspepsia, Dysphagia, Early Satiety, Excessive Flatus, Fecal Incontinence, Heartburn, Hematemesis, Hematochezia, Loose Stools, Melena, Nausea, Odynophagia, Temesmus, Vomiting, Other - Genitourinary Genitourinary: absent: As Per HPI, Change in Urinary Stream, Difficulty Urinating, Dysuria, Flank Pain, Hematuria, Pyuria, Nocturia, Urinary Incontinence, Urinary Frequency, Urinary Hesitance, Urinary Urgency, Voiding Freq/Small Amts, Freq UTI, Hx Renal/Bladder Calculi, Hx /Renal Surgery, Bladder Distension, Other - Reproductive: Female Reproductive:Female: absent: As Per HPI, Amenorrhea, Amenorrhea/ Control, Currently Menstual, Cycle <21 Days, Cycle >35 Days, Cycle Variable, Menses 1-7 Days, Menses >/= 8 Days, Menses Variable, Cycle > 4 Weeks Between, No Menses for 6 Months, Heavy Menses, Light Menses, Normal Menses, Spotting Between Cycles, S/P Hysterectomy, Menopausal, Post Menopausal, Premenarche, Abnormal Vaginal Bleeding, Dysmenorrhea, Dyspareunia, Genital Lesions, Genital Pruritis, Pelvic Pain, Prolapse Symptoms, Sexual Dysfunction, Vaginal Discharge, Vaginal Dryness, Vaginal Odor, Vaginal Pruritis, Other - Menstruation Menstruation: absent: As Per HPI, Amenorrhea, Amenorrhea/ Control, Currently Menstual, Cycle <21 Days, Cycle >35 Days, Cycle Variable, Menses 1-7 Days, Menses >/= 8 Days, Menses Variable, Cycle > 4 Weeks Between, No Menses for 6 Months, Heavy Menses, Light Menses, Normal Menses, Spotting Between Cycles, S/P Hysterectomy, Menopausal, Post Menopausal, Premenarche, Abnormal Vaginal Bleeding, Dysmenorrhea, Other - Musculoskeletal Musculoskeletal: As Per HPI - Integumentary Integumentary: As Per HPI - Neurological Neurological: absent: As Per HPI, Abnormal Gait, Abnormal Hearing, Abnormal Movements, Abnormal Speech, Behavioral Changes, Burning Sensations, Confusion, Convulsions, Disequilibrium, Dizziness, Numbness, Focal Weakness, Frequent Falls, Headaches, Lack of Coordination, Loss of Vision, Memory Loss, Paresth esias, Radicular Pain, Restless Legs, Sensory Deficit, Syncope, Tingling, Tremor, Vertigo, Weakness, Other Visual Disturbances, Other - Psychiatric Psychiatric: absent: As Per HPI, Abnormal Sleep Pattern, Anhedonia, Anxiety, Auditory Hallucinations, Behavioral Changes, Change in Appetite, Change in Libido, Confusion, Depression, Difficulty Concentrating, Hallucinations, Homicidal Ideation, Hopelessness, Irritability, Memory Loss, Mood Swings, Panic Attacks, Paranoia, Suicidal Ideation, Visual Hallucinations, Tactile Hallucinations, Other - Endocrine Endocrine: absent: As Per HPI, Change in Body Appearance, Change in Libido, Cold Intolorance, Deepening of Voice, Excessive Sweating, Fatigue, Flushing, Heat Intolorance, Increase in Ring/Shoe/Hat Size, Palpitations, Polydipsia, Polyphagia, Polyuria, Other - Hematologic/Lymphatic Hematologic: absent: As Per HPI, Easy Bleeding, Easy Bruising, Lymphadenopathy, Other Past Patient History - Past Medical History & Family History Past Medical History?: Yes - Past Social History Smoking Status: Never Smoked - CARDIAC Hx Cardiac Disorders: Yes Hx Hypercholesterolemia: Yes Hx Hypertension: Yes - PULMONARY Hx Respiratory Disorders: No - NEUROLOGICAL Hx Neurological Disorder: No - HEENT Hx HEENT Problems: No - RENAL Hx Chronic Kidney Disease: No - ENDOCRINE/METABOLIC Hx Diabetes Mellitus Type 1: Yes - HEMATOLOGICAL/ONCOLOGICAL Hx Blood Disorders: No - INTEGUMENTARY Hx Dermatological Problems: No - MUSCULOSKELETAL/RHEUMATOLOGICAL Hx Arthritis: Yes - GASTROINTESTINAL Hx Gastrointestinal Disorders: Yes Hx Gall Bladder Disease: Yes - GENITOURINARY/GYNECOLOGICAL Hx Genitourinary Disorders: No - PSYCHIATRIC Hx Psychophysiologic Disorder: No Hx Substance Use: No - SURGICAL HISTORY Hx Surgeries: Yes Hx Cholecystectomy: Yes Hx Orthopedic Surgery: Yes Other/Comment: right 1st toe amputation 2013 - ANESTHESIA Hx Anesthesia: Yes Hx Anesthesia Reactions: No Hx Malignant Hyperthermia: No Meds Allergies/Adverse Reactions: Allergies Allergy/AdvReac Type Severity Reaction Status Date / Time No Known Allergies Allergy Verified 07/02/18 16:41 - Medications Medications: Current Medications Acetaminophen (Tylenol 325mg Tab) 650 mg PO Q6 PRN PRN Reason: Fever >100.4 F Last Admin: 07/04/18 17:05 Dose: 650 mg Aspirin (Ecotrin) 81 mg PO DAILY [facility] Last Admin: 07/05/18 10:04 Dose: 81 mg Fenofibrate (Tricor) 48 mg PO DAILY [facility] Last Admin: 07/05/18 10:04 Dose: 48 mg Glipizide (Glucotrol) 5 mg PO DAILY [facility] Last Admin: 07/05/18 10:04 Dose: 5 mg Heparin Sodium (Porcine) (Heparin) 5,000 units SC Q12 [facility] Last Admin: 07/05/18 10:15 Dose: Not Given Piperacillin Sod/Tazobactam Sod (Zosyn 3.375 Gm Iv Premix) 3.375 gm in 50 mls @ 100 mls/hr IVPB Q8H [facility]; Protocol Last Admin: 07/05/18 13:21 Dose: 100 mls/hr Insulin Aspart (Novolog) 0 unit SC ACHS [facility]; Protocol Last Admin: 07/05/18 11:42 Dose: Not Given Metformin HCl (Glucophage Xr) 500 mg PO BIDCC [facility] Last Admin: 07/05/18 08:37 Dose: 500 mg Pioglitazone HCl (Actos) 45 mg PO DAILY [facility] Last Admin: 07/05/18 10:14 Dose: 45 mg Rosuvastatin Calcium (Crestor) 10 mg PO HS [facility] Last Admin: 07/04/18 21:43 Dose: 10 mg Sitagliptin Phosphate (Januvia) 25 mg PO DAILY [facility] Last Admin: 07/05/18 10:04 Dose: 25 mg Sodium Hypochlorite (Dakins Solution 0.25%) 1 ml TOP QSHIFT [facility] Last Admin: 07/05/18 13:09 Dose: Not Given Physical Exam - Constitutional Appears: Non-toxic, No Acute Distress, Chronically Ill - Head Exam Head Exam: ATRAUMATIC, NORMAL INSPECTION, NORMOCEPHALIC - Eye Exam Eye Exam: PERRL. absent: Scleral icterus Pupil Exam: NORMAL ACCOMODATION - ENT Exam ENT Exam: Mucous Membranes Dry, Normal External Ear Exam, Normal Oropharynx - Neck Exam Neck exam: Negative for: Lymphadenopathy, Thyromegaly - Respiratory Exam Respiratory Exam: Decreased Breath Sounds, Clear to Auscultation Bilateral, Prolonged Expiratory Phase, Rhonchi - Cardiovascular Exam Cardiovascular Exam: REGULAR RHYTHM, +S1, +S2 - GI/Abdominal Exam GI & Abdominal Exam: Diminished Bowel Sounds, Soft. absent: Tenderness - Rectal Exam Rectal Exam: Deferred - Exam Exam: NORMAL INSPECTION - Extremities Exam Extremities exam: Positive for: pedal edema, tenderness, pedal pulses present. Negative for: calf tenderness - Back Exam Back exam: absent: CVA tenderness (L), CVA tenderness (R) - Neurological Exam Neurological exam: Alert, CN II-XII Intact, Oriented x3, Reflexes Normal - Psychiatric Exam Psychiatric exam: Normal Mood - Skin Skin Exam: Dry, Erythema - Additional Findings Additional findings: LLE focused exam VASC: DP and PT pulses palpable; cap refill <3 seconds to all digits; temp gradient warm to warm; edema noted locally at the hallux DERM: pocket opened at first mpj medially that does not probe to bone but drained 3cc of pus today; blister deroofed, clinical signs of infection present, suspicion for deeper infection appreciated ORTHO: mild pain ROM of the hallux, no pain on palpation of blister or wound NEURO: gross and protective sensation diminished Results - Vital Signs Recent Vital Signs: Last Vital Signs Temp 98.8 F 07/05/18 08:01 Pulse 78 07/05/18 08:01 Resp 20 07/05/18 08:01 BP 147/69 07/05/18 08:01 Pulse Ox 95 07/05/18 08:01 - Labs Result Diagrams: 07/05/18 08:05 07/05/18 08:05 Labs: Laboratory Results - last 24 hr 07/04/18 07/04/18 07/04/18 11:07 16:45 21:13 WBC RBC Hgb Hct MCV MCH MCHC RDW Plt Count MPV Neut % (Auto) Lymph % (Auto) [place] % (Auto) Eos % (Auto) Baso % (Auto) Neut # (Auto) Lymph # (Auto) [place] # (Auto) Eos # (Auto) Baso # (Auto) Sodium Potassium Chloride Carbon Dioxide Anion Gap BUN Creatinine Est GFR ( Amer) Est GFR (Non-Af Amer) POC Glucose (mg/dL) 156 H 188 H 128 H Random Glucose Calcium 07/05/18 07/05/18 07/05/18 07:10 08:05 08:05 WBC 14.2 H RBC 3.70 L Hgb 10.5 L Hct 32.0 L MCV 86.4 MCH 28.4 MCHC 32.9 L RDW 13.9 Plt Count 357 MPV 7.9 Neut % (Auto) 81.1 H Lymph % (Auto) 11.7 L [place] % (Auto) 5.5 Eos % (Auto) 1.1 Baso % (Auto) 0.6 Neut # (Auto) 11.5 H Lymph # (Auto) 1.7 [place] # (Auto) 0.8 Eos # (Auto) 0.2 Baso # (Auto) 0.1 Sodium 133 Potassium 3.7 Chloride 99 Carbon Dioxide 25 Anion Gap 14 BUN 34 H Creatinine 1.9 H Est GFR ( Amer) 31 Est GFR (Non-Af Amer) 25 POC Glucose (mg/dL) 72 Random Glucose 72 D Calcium 8.7 07/05/18 07/05/18 07/05/18 11:36 11:38 11:59 WBC RBC Hgb Hct MCV MCH MCHC RDW Plt Count MPV Neut % (Auto) Lymph % (Auto) [place] % (Auto) Eos % (Auto) Baso % (Auto) Neut # (Auto) Lymph # (Auto) [place] # (Auto) Eos # (Auto) Baso # (Auto) Sodium Potassium Chloride Carbon Dioxide Anion Gap BUN Creatinine Est GFR ( Amer) Est GFR (Non-Af Amer) POC Glucose (mg/dL) 61 L 60 L 57 L Random Glucose Calcium 07/05/18 12:15 WBC RBC Hgb Hct MCV MCH MCHC RDW Plt Count MPV Neut % (Auto) Lymph % (Auto) [place] % (Auto) Eos % (Auto) Baso % (Auto) Neut # (Auto) Lymph # (Auto) [place] # (Auto) Eos # (Auto) Baso # (Auto) Sodium Potassium Chloride Carbon Dioxide Anion Gap BUN Creatinine Est GFR ( Amer) Est GFR (Non-Af Amer) POC Glucose (mg/dL) 75 Random Glucose Calcium Assessment & Plan (1) Cellulitis Status: Acute (2) Arterial, arteriole and capillary disease Status: Acute (3) Diabetes Status: Acute - Assessment and Plan (Free Text) Assessment: MRI inconclusive vascular eval in progress will likley need empiric rx for OM x 6-8 weeks
--- NOTE | 2018-07-05 15:48 | CP.PCM.PN ---
Subjective - Date & Time of Evaluation Date of Evaluation: 07/05/18 Time of Evaluation: 15:47 - Subjective Subjective: will plan cta nd angio when patient is better hydrated and renal function improved Objective - Vital Signs/Intake and Output Vital Signs (last 24 hours): Temp Pulse Resp BP Pulse Ox 98.8 F 78 20 147/69 95 07/05/18 08:01 07/05/18 08:01 07/05/18 08:01 07/05/18 08:01 07/05/18 08:01 - Medications Medications: Current Medications Acetaminophen (Tylenol 325mg Tab) 650 mg PO Q6 PRN PRN Reason: Fever >100.4 F Last Admin: 07/04/18 17:05 Dose: 650 mg Aspirin (Ecotrin) 81 mg PO DAILY [facility] Last Admin: 07/05/18 10:04 Dose: 81 mg Fenofibrate (Tricor) 48 mg PO DAILY [facility] Last Admin: 07/05/18 10:04 Dose: 48 mg Glipizide (Glucotrol) 5 mg PO DAILY [facility] Last Admin: 07/05/18 10:04 Dose: 5 mg Heparin Sodium (Porcine) (Heparin) 5,000 units SC Q12 [facility] Last Admin: 07/05/18 10:15 Dose: Not Given Piperacillin Sod/Tazobactam Sod (Zosyn 3.375 Gm Iv Premix) 3.375 gm in 50 mls @ 100 mls/hr IVPB Q8H [facility]; Protocol Last Admin: 07/05/18 13:21 Dose: 100 mls/hr Insulin Aspart (Novolog) 0 unit SC ACHS [facility]; Protocol Last Admin: 07/05/18 11:42 Dose: Not Given Metformin HCl (Glucophage Xr) 500 mg PO BIDCC [facility] Last Admin: 07/05/18 08:37 Dose: 500 mg Pioglitazone HCl (Actos) 45 mg PO DAILY [facility] Last Admin: 07/05/18 10:14 Dose: 45 mg Rosuvastatin Calcium (Crestor) 10 mg PO HS [facility] Last Admin: 07/04/18 21:43 Dose: 10 mg Sitagliptin Phosphate (Januvia) 25 mg PO DAILY [facility] Last Admin: 07/05/18 10:04 Dose: 25 mg Sodium Hypochlorite (Dakins Solution 0.25%) 1 ml TOP QSHIFT [facility] Last Admin: 02/17/19 13:09 Dose: Not Given - Labs Labs: 07/05/18 08:05 07/05/18 08:05 PT 12.3 SECONDS (9.7-12.2) H 07/02/18 17:43 INR 1.1 07/02/18 17:43 APTT 30 SECONDS (21-34) 07/02/18 17:43
[2018-07-05] MEDS: Linezolid 600 mg in D5W 300 ml 600 MG/300 ML BAG IVPB SCH (17:55)
[2018-07-06] MEDS: Linezolid 600 mg in D5W 300 ml 600 MG/300 ML BAG IVPB SCH ×2 (04:12→16:16)
[2018-07-06] MEDS: Piperacill/Tazo 3.375gm in Dex 3.375 GM/50 ML BAG IVPB SCH ×2 (05:36→14:25)
[2018-07-06] MEDS: Dakin's Topical 0.25%-Half Strength (480 ml) TOP SCH ×3 (05:38→22:23)
[2018-07-06 07:00] LABS: ALBUMIN 3.5 g/dL (3.5-5.0); CALCIUM 8.3 mg/dl (8.6-10.4)
[2018-07-06] MEDS: (Novolog) Insulin Aspart, Recombinant 100 u/ml 10 ml vial SC SCH ×5 (07:21→22:23)
--- NOTE | 2018-07-06 10:47 | CP.PCM.CON ---
History of Present Illness - History of Present Illness History of Present Illness: 83 year old female, whose past medical history includes diabetes and right 1st toe amputation, presents to the ED with family member for evaluation of increased redness, pain and swelling to her left 1st toe over the past 3 weeks. She is currently on ABX for suspected osteomyelitis of L. toe. We are called to provide preop evaluation prior to ID L. toe. Vascular surgery is on board to w/u any additional PAD and there may be possibility of amputation of same digit based on results. Patient denies fever, chills, chest pain and shortness of breath. There is No CP or clinical vol;ume overload PMHX: HTN chronic stable, DM chronic labile, LIPIDS on statin and fibrate, OA CARDIAC HX: No reported NE, CVA or CV procedures; Non-smoker Review of Systems - Review of Systems All systems: reviewed and no additional remarkable complaints except Past Patient History - Past Medical History & Family History Past Medical History?: Yes - Past Social History Smoking Status: Never Smoked - CARDIAC Hx Cardiac Disorders: Yes Hx Hypercholesterolemia: Yes Hx Hypertension: Yes - PULMONARY Hx Respiratory Disorders: No - NEUROLOGICAL Hx Neurological Disorder: No - HEENT Hx HEENT Problems: No - RENAL Hx Chronic Kidney Disease: No - ENDOCRINE/METABOLIC Hx Diabetes Mellitus Type 1: Yes - HEMATOLOGICAL/ONCOLOGICAL Hx Blood Disorders: No - INTEGUMENTARY Hx Dermatological Problems: No - MUSCULOSKELETAL/RHEUMATOLOGICAL Hx Arthritis: Yes - GASTROINTESTINAL Hx Gastrointestinal Disorders: Yes Hx Gall Bladder Disease: Yes - GENITOURINARY/GYNECOLOGICAL Hx Genitourinary Disorders: No - PSYCHIATRIC Hx Psychophysiologic Disorder: No Hx Substance Use: No - SURGICAL HISTORY Hx Surgeries: Yes Hx Cholecystectomy: Yes Hx Orthopedic Surgery: Yes Other/Comment: right 1st toe amputation 2013 - ANESTHESIA Hx Anesthesia: Yes Hx Anesthesia Reactions: No Hx Malignant Hyperthermia: No Meds Allergies/Adverse Reactions: Allergies Allergy/AdvReac Type Severity Reaction Status Date / Time No Known Allergies Allergy Verified 07/02/18 16:41 - Medications Medications: Current Medications Acetaminophen (Tylenol 325mg Tab) 650 mg PO Q6 PRN PRN Reason: Fever >100.4 F Last Admin: 07/04/18 17:05 Dose: 650 mg Aspirin (Ecotrin) 81 mg PO DAILY [facility] Last Admin: 07/05/18 10:04 Dose: 81 mg Fenofibrate (Tricor) 48 mg PO DAILY [facility] Last Admin: 07/05/18 10:04 Dose: 48 mg Glipizide (Glucotrol) 5 mg PO DAILY [facility] Last Admin: 07/05/18 10:04 Dose: 5 mg Heparin Sodium (Porcine) (Heparin) 5,000 units SC Q12 [facility] Last Admin: 07/05/18 10:15 Dose: Not Given Piperacillin Sod/Tazobactam Sod (Zosyn 3.375 Gm Iv Premix) 3.375 gm in 50 mls @ 100 mls/hr IVPB Q8H [facility]; Protocol Last Admin: 07/06/18 05:36 Dose: 100 mls/hr Linezolid (Zyvox 600mg/300ml D5w) 600 mg in 300 mls @ 200 mls/hr IVPB Q12H [facility]; Protocol Last Admin: 07/06/18 04:12 Dose: 200 mls/hr Insulin Aspart (Novolog) 0 unit SC ACHS [facility]; Protocol Last Admin: 07/06/18 07:21 Dose: Not Given Metformin HCl (Glucophage Xr) 500 mg PO BIDCC [facility] Last Admin: 07/05/18 17:48 Dose: Not Given Pioglitazone HCl (Actos) 45 mg PO DAILY [facility] Last Admin: 07/05/18 10:14 Dose: 45 mg Rosuvastatin Calcium (Crestor) 10 mg PO HS [facility] Last Admin: 07/05/18 21:52 Dose: 10 mg Sitagliptin Phosphate (Januvia) 25 mg PO DAILY [facility] Last Admin: 07/05/18 10:04 Dose: 25 mg Sodium Hypochlorite (Dakins Solution 0.25%) 1 ml TOP QSHIFT [facility] Last Admin: 07/06/18 05:38 Dose: Not Given Physical Exam - Constitutional Appears: No Acute Distress - Head Exam Head Exam: ATRAUMATIC, NORMAL INSPECTION, NORMOCEPHALIC - Eye Exam Eye Exam: EOMI, Normal appearance. absent: Scleral icterus - ENT Exam ENT Exam: Mucous Membranes Moist, Normal Oropharynx - Respiratory Exam Respiratory Exam: Clear to Auscultation Bilateral, NORMAL BREATHING PATTERN. absent: Rhonchi, Wheezes - Cardiovascular Exam Cardiovascular Exam: REGULAR RHYTHM, +S1, +S2. absent: Gallop, +S4, Systolic Murmur - GI/Abdominal Exam GI & Abdominal Exam: Normal Bowel Sounds, Soft. absent: Tenderness - Extremities Exam Extremities exam: Positive for: normal inspection (L. foot dressing, L. toe infection), pedal pulses present. Negative for: calf tenderness - Neurological Exam Neurological exam: Alert, Oriented x3 - Psychiatric Exam Psychiatric exam: Normal Affect, Normal Mood - Skin Skin Exam: Normal Color, Warm Results - Vital Signs Recent Vital Signs: Last Vital Signs Temp 98.7 F 07/06/18 08:00 Pulse 75 07/06/18 08:00 Resp 20 07/06/18 08:00 BP 131/72 07/06/18 08:00 Pulse Ox 95 07/06/18 08:00 - Labs Result Diagrams: 07/05/18 08:05 07/06/18 06:20 Labs: Laboratory Results - last 24 hr 07/05/18 07/05/18 07/05/18 11:36 11:38 11:59 Sodium Potassium Chloride Carbon Dioxide Anion Gap BUN Creatinine Est GFR ( Amer) Est GFR (Non-Af Amer) POC Glucose (mg/dL) 61 L 60 L 57 L Random Glucose Calcium Total Bilirubin AST ALT Alkaline Phosphatase Total Protein Albumin Globulin Albumin/Globulin Ratio 07/05/18 07/05/18 07/05/18 12:15 16:18 16:19 Sodium Potassium Chloride Carbon Dioxide Anion Gap BUN Creatinine Est GFR ( Amer) Est GFR (Non-Af Amer) POC Glucose (mg/dL) 75 57 L 59 L Random Glucose Calcium Total Bilirubin AST ALT Alkaline Phosphatase Total Protein Albumin Globulin Albumin/Globulin Ratio 07/05/18 07/05/18 07/06/18 16:37 21:00 06:20 Sodium 129 L Potassium 3.6 Chloride 96 L Carbon Dioxide 22 Anion Gap 14 BUN 25 H Creatinine 1.6 H Est GFR ( Amer) 37 Est GFR (Non-Af Amer) 31 POC Glucose (mg/dL) 70 154 H Random Glucose 110 H D Calcium 8.3 L Total Bilirubin 0.6 AST 40 H D ALT 10 Alkaline Phosphatase 79 Total Protein 7.0 Albumin 3.5 Globulin 3.5 Albumin/Globulin Ratio 1.0 07/06/18 07/06/18 06:28 07:38 Sodium Potassium Chloride Carbon Dioxide Anion Gap BUN Creatinine Est GFR ( Amer) Est GFR (Non-Af Amer) POC Glucose (mg/dL) 118 H 83 Random Glucose Calcium Total Bilirubin AST ALT Alkaline Phosphatase Total Protein Albumin Globulin Albumin/Globulin Ratio - EKG Data EKG Interpreted by: Myself - Imaging and Cardiology Chest x-ray Status: Image reviewed by me Assessment & Plan - Assessment and Plan (Free Text) Assessment: 83 woman pending initial I&D a of L. toe and may need additional PAD w/u and possible amputation of digit. EKG: NSR, LBBB; CXR: No congestion or focal consolidation > No active CAD sx's or CHF sx's > Clinically: no volume overload > BP is acceptable > Cardiovascular auscultation is normal > HTN chronic stable, DM: > cont to improve glycemic control > Continue statin and fibrate; agree with ASA 81 Overall patient is ambulatory and able to perform 4 mets or more without any CV sx's CKD 3 noted, mild anemia She is acceptable risk to proceed with I&D of L. to and possible amputation if needed Routine BP and heart rate monitoring, DVT prophylaxis.
[2018-07-06] MEDS ORDERED: Dextrose 50% SYRINGE Inj (50 ml) IV ONE (11:15)
[2018-07-06] MEDS: Dextrose 5%/0.45% NS 1,000 ML IV SCH (11:39)
[2018-07-06] MEDS ORDERED: Lidocaine Hydrochloride 10 ML INJ ONE (11:54)
[2018-07-06] MEDS ORDERED: Bupivacaine 0.25% 20 ML INJ IJ ONE (11:54)
[2018-07-06] MEDS ORDERED: Propofol 10 mg/ml Inj (20 ML) ONE (11:56)
--- NOTE | 2018-07-06 12:56 | PCM.SURG1 ---
Surgeon's Initial Post Op Note - Surgeon's Notes Surgeon: Dr. Mckay [facility] Professional: July Puri PGY2 Type of Anesthesia: IV Sedation, Local (15cc 1:1 mixture 1% lidocaine and 0.25% marcaine) Anesthesia Administered By: Dr. Singh Pre-Operative Diagnosis: Left foot abscess Operative Findings: See operative report. m: 05/22" iodoform, 3-0 prolene Post-Operative Diagnosis: same as above Operation Performed: Left foot incision and drainage Specimen/Specimens Removed: Left foot wound culture Estimated Blood Loss: EBL {In ML}: 10 Blood Products Given: N/A Drains Used: No Drains (05/22" iodoform packing) Post-Op Condition: Good Date of Surgery/Procedure: 07/06/18 Time of Surgery/Procedure: 12:56
[2018-07-06] MEDS ORDERED: Oxycodone/Acetaminophen 5/325 mg Tab PO PRN ×2 (12:58)
[2018-07-06] MEDS ORDERED: HYDROmorphone 0.5 mg/0.5 ml ISec IVP PRN (13:03)
--- NOTE | 2018-07-06 13:23 | CP.PCM.PN ---
Subjective - Date & Time of Evaluation Date of Evaluation: 07/06/18 Time of Evaluation: 08:00 - Subjective Subjective: s/p drainage left foot abscess hallux MRI + OM Objective - Vital Signs/Intake and Output Vital Signs (last 24 hours): Temp Pulse Resp BP Pulse Ox 98.7 F 75 20 131/72 95 07/06/18 08:00 07/06/18 08:00 07/06/18 08:00 07/06/18 08:00 07/06/18 08:00 Intake and Output: 07/06/18 07/06/18 06:59 18:59 Intake Total 1000 307.5 Balance 1000 307.5 - Medications Medications: Current Medications Acetaminophen (Tylenol 325mg Tab) 650 mg PO Q6 PRN PRN Reason: Fever >100.4 F Last Admin: 07/04/18 17:05 Dose: 650 mg Acetaminophen (Tylenol 325mg Tab) 650 mg PO Q6 PRN PRN Reason: Pain, Mild (1-3) Aspirin (Ecotrin) 81 mg PO DAILY [facility] Last Admin: 07/05/18 10:04 Dose: 81 mg Fenofibrate (Tricor) 48 mg PO DAILY [facility] Last Admin: 07/06/18 11:08 Dose: Not Given Glipizide (Glucotrol) 5 mg PO DAILY [facility] Last Admin: 07/05/18 10:04 Dose: 5 mg Heparin Sodium (Porcine) (Heparin) 5,000 units SC Q12 [facility] Last Admin: 07/05/18 10:15 Dose: Not Given Hydromorphone HCl (Dilaudid) 0.5 mg IVP Q5M PRN PRN Reason: Pain, severe (8-10) Stop: 07/06/18 15:03 Piperacillin Sod/Tazobactam Sod (Zosyn 3.375 Gm Iv Premix) 3.375 gm in 50 mls @ 100 mls/hr IVPB Q8H [facility]; Protocol Last Admin: 07/06/18 05:36 Dose: 100 mls/hr Linezolid (Zyvox 600mg/300ml D5w) 600 mg in 300 mls @ 200 mls/hr IVPB Q12H [facility]; Protocol Last Admin: 07/06/18 04:12 Dose: 200 mls/hr Dextrose/Sodium Chloride (Dextrose 5%/0.45% Ns 1000 Ml) 1,000 mls @ 80 mls/hr IV .[id number] [facility] Last Admin: 07/06/18 11:39 Dose: 80 mls/hr Insulin Aspart (Novolog) 0 unit SC ACHS [facility]; Protocol Last Admin: 07/06/18 11:40 Dose: Not Given Metformin HCl (Glucophage Xr) 500 mg PO BIDCC [facility] Last Admin: 07/05/18 17:48 Dose: Not Given Oxycodone/Acetaminophen (Percocet 5/325 Mg Tab) 1 tab PO Q6H PRN PRN Reason: Pain, moderate (4-7) Stop: 07/09/18 12:59 Oxycodone/Acetaminophen (Percocet 5/325 Mg Tab) 2 tab PO Q6H PRN PRN Reason: Pain, severe (8-10) Stop: 07/09/18 12:59 Pioglitazone HCl (Actos) 45 mg PO DAILY [facility] Last Admin: 07/05/18 10:14 Dose: 45 mg Rosuvastatin Calcium (Crestor) 10 mg PO HS [facility] Last Admin: 07/05/18 21:52 Dose: 10 mg Sitagliptin Phosphate (Januvia) 25 mg PO DAILY [facility] Last Admin: 07/06/18 11:07 Dose: Not Given Sodium Hypochlorite (Dakins Solution 0.25%) 1 ml TOP QSHIFT [facility] Last Admin: 07/06/18 05:38 Dose: Not Given - Labs Labs: 07/05/18 08:05 07/06/18 06:20 PT 12.3 SECONDS (9.7-12.2) H 07/02/18 17:43 INR 1.1 07/02/18 17:43 APTT 30 SECONDS (21-34) 07/02/18 17:43 - Constitutional Appears: Non-toxic, Chronically Ill - Head Exam Head Exam: NORMOCEPHALIC - Eye Exam Eye Exam: absent: Scleral icterus - ENT Exam ENT Exam: Mucous Membranes Dry - Neck Exam Neck Exam: absent: Lymphadenopathy - Respiratory Exam Respiratory Exam: Decreased Breath Sounds - Cardiovascular Exam Cardiovascular Exam: REGULAR RHYTHM - GI/Abdominal Exam GI & Abdominal Exam: Distended - Rectal Exam Rectal Exam: Deferred - Exam Exam: NORMAL INSPECTION - Extremities Exam Extremities Exam: Pedal Edema - Back Exam Back Exam: absent: CVA tenderness (L), CVA tenderness (R) Assessment and Plan (1) Cellulitis Status: Acute (2) Arterial, arteriole and capillary disease Status: Acute (3) Diabetes Status: Acute - Assessment and Plan (Free Text) Assessment: s/p drainage abscess likely OM await cultures cont IV rx
--- NOTE | 2018-07-06 13:47 | CP.PCM.PN ---
Subjective - Date & Time of Evaluation Date of Evaluation: 07/06/18 Time of Evaluation: 13:43 - Subjective Subjective: Vascular Surgery: Dr. Hobson Pt seen and examined. No acute overnight events. States she feels ok and denies any complaints at this time. She states she has some pain in her left hallux but it's improved. Denies nausea/vomiting, fevers/chills. Objective - Vital Signs/Intake and Output Vital Signs (last 24 hours): Temp Pulse Resp BP Pulse Ox 97.6 F 64 17 166/60 H 100 07/06/18 12:54 07/06/18 13:30 07/06/18 13:30 07/06/18 13:30 07/06/18 13:30 Intake and Output: 07/06/18 07/06/18 06:59 18:59 Intake Total 1000 332.5 Balance 1000 332.5 - Medications Medications: Current Medications Acetaminophen (Tylenol 325mg Tab) 650 mg PO Q6 PRN PRN Reason: Fever >100.4 F Last Admin: 07/04/18 17:05 Dose: 650 mg Acetaminophen (Tylenol 325mg Tab) 650 mg PO Q6 PRN PRN Reason: Pain, Mild (1-3) Aspirin (Ecotrin) 81 mg PO DAILY [facility] Last Admin: 07/05/18 10:04 Dose: 81 mg Fenofibrate (Tricor) 48 mg PO DAILY [facility] Last Admin: 07/06/18 11:08 Dose: Not Given Glipizide (Glucotrol) 5 mg PO DAILY [facility] Last Admin: 07/05/18 10:04 Dose: 5 mg Heparin Sodium (Porcine) (Heparin) 5,000 units SC Q12 [facility] Last Admin: 07/05/18 10:15 Dose: Not Given Hydromorphone HCl (Dilaudid) 0.5 mg IVP Q5M PRN PRN Reason: Pain, severe (8-10) Stop: 07/06/18 15:03 Piperacillin Sod/Tazobactam Sod (Zosyn 3.375 Gm Iv Premix) 3.375 gm in 50 mls @ 100 mls/hr IVPB Q8H [facility]; Protocol Last Admin: 07/06/18 05:36 Dose: 100 mls/hr Linezolid (Zyvox 600mg/300ml D5w) 600 mg in 300 mls @ 200 mls/hr IVPB Q12H [facility]; Protocol Last Admin: 07/06/18 04:12 Dose: 200 mls/hr Dextrose/Sodium Chloride (Dextrose 5%/0.45% Ns 1000 Ml) 1,000 mls @ 80 mls/hr IV .[id number] [facility] Last Admin: 07/06/18 11:39 Dose: 80 mls/hr Sodium Chloride (Sodium Chloride 0.9%) 1,000 mls @ 50 mls/hr IV .Q20H [facility] Insulin Aspart (Novolog) 0 unit SC ACHS [facility]; Protocol Last Admin: 07/06/18 11:40 Dose: Not Given Metformin HCl (Glucophage Xr) 500 mg PO BIDCC [facility] Last Admin: 07/05/18 17:48 Dose: Not Given Oxycodone/Acetaminophen (Percocet 5/325 Mg Tab) 1 tab PO Q6H PRN PRN Reason: Pain, moderate (4-7) Stop: 07/09/18 12:59 Oxycodone/Acetaminophen (Percocet 5/325 Mg Tab) 2 tab PO Q6H PRN PRN Reason: Pain, severe (8-10) Stop: 07/09/18 12:59 Pioglitazone HCl (Actos) 45 mg PO DAILY [facility] Last Admin: 07/05/18 10:14 Dose: 45 mg Rosuvastatin Calcium (Crestor) 10 mg PO HS [facility] Last Admin: 07/05/18 21:52 Dose: 10 mg Sitagliptin Phosphate (Januvia) 25 mg PO DAILY [facility] Last Admin: 07/06/18 11:07 Dose: Not Given Sodium Hypochlorite (Dakins Solution 0.25%) 1 ml TOP QSHIFT [facility] Last Admin: 07/06/18 05:38 Dose: Not Given - Labs Labs: 07/05/18 08:05 07/06/18 06:20 PT 12.3 SECONDS (9.7-12.2) H 07/02/18 17:43 INR 1.1 07/02/18 17:43 APTT 30 SECONDS (21-34) 07/02/18 17:43 - Constitutional Appears: Well, No Acute Distress - Head Exam Head Exam: ATRAUMATIC, NORMOCEPHALIC - Eye Exam Eye Exam: Normal appearance - ENT Exam ENT Exam: Mucous Membranes Moist - Respiratory Exam Respiratory Exam: NORMAL BREATHING PATTERN - Cardiovascular Exam Cardiovascular Exam: RRR - GI/Abdominal Exam GI & Abdominal Exam: Soft - Extremities Exam Additional comments: left hallux with purulent draining wound, cellulitis & erythema - Neurological Exam Neurological Exam: Alert, Awake, Oriented x3 - Skin Skin Exam: Dry, Warm Assessment and Plan - Assessment and Plan (Free Text) Assessment: 83F with L hallux cellulitis/osteomyelitis; eval for PVD Plan: - f/u MIGUEL ÁNGEL/PVRs - f/u CTA; cont IVF hydration - wound care per podiatry - d/w Dr. Jazlyn Pulliam
--- NOTE | 2018-07-06 14:11 | CP.PCM.PN ---
Subjective - Date & Time of Evaluation Date of Evaluation: 07/06/18 Time of Evaluation: 08:00 - Subjective Subjective: clinically same Objective - Vital Signs/Intake and Output Vital Signs (last 24 hours): Temp Pulse Resp BP Pulse Ox 97.6 F 64 17 166/60 H 100 07/06/18 12:54 07/06/18 13:30 07/06/18 13:30 07/06/18 13:30 07/06/18 13:30 Intake and Output: 07/06/18 07/06/18 06:59 18:59 Intake Total 1000 332.5 Balance 1000 332.5 - Medications Medications: Current Medications Acetaminophen (Tylenol 325mg Tab) 650 mg PO Q6 PRN PRN Reason: Fever >100.4 F Last Admin: 07/04/18 17:05 Dose: 650 mg Acetaminophen (Tylenol 325mg Tab) 650 mg PO Q6 PRN PRN Reason: Pain, Mild (1-3) Aspirin (Ecotrin) 81 mg PO DAILY [facility] Last Admin: 07/05/18 10:04 Dose: 81 mg Fenofibrate (Tricor) 48 mg PO DAILY [facility] Last Admin: 07/06/18 11:08 Dose: Not Given Glipizide (Glucotrol) 5 mg PO DAILY [facility] Last Admin: 07/05/18 10:04 Dose: 5 mg Heparin Sodium (Porcine) (Heparin) 5,000 units SC Q12 [facility] Last Admin: 07/05/18 10:15 Dose: Not Given Hydromorphone HCl (Dilaudid) 0.5 mg IVP Q5M PRN PRN Reason: Pain, severe (8-10) Stop: 07/06/18 15:03 Piperacillin Sod/Tazobactam Sod (Zosyn 3.375 Gm Iv Premix) 3.375 gm in 50 mls @ 100 mls/hr IVPB Q8H [facility]; Protocol Last Admin: 07/06/18 05:36 Dose: 100 mls/hr Linezolid (Zyvox 600mg/300ml D5w) 600 mg in 300 mls @ 200 mls/hr IVPB Q12H [facility]; Protocol Last Admin: 07/06/18 04:12 Dose: 200 mls/hr Dextrose/Sodium Chloride (Dextrose 5%/0.45% Ns 1000 Ml) 1,000 mls @ 80 mls/hr IV .[id number] [facility] Last Admin: 07/06/18 11:39 Dose: 80 mls/hr Sodium Chloride (Sodium Chloride 0.9%) 1,000 mls @ 50 mls/hr IV .Q20H [facility] Insulin Aspart (Novolog) 0 unit SC ACHS [facility]; Protocol Last Admin: 07/06/18 11:40 Dose: Not Given Metformin HCl (Glucophage Xr) 500 mg PO BIDCC [facility] Last Admin: 07/05/18 17:48 Dose: Not Given Oxycodone/Acetaminophen (Percocet 5/325 Mg Tab) 1 tab PO Q6H PRN PRN Reason: Pain, moderate (4-7) Stop: 07/09/18 12:59 Oxycodone/Acetaminophen (Percocet 5/325 Mg Tab) 2 tab PO Q6H PRN PRN Reason: Pain, severe (8-10) Stop: 07/09/18 12:59 Pioglitazone HCl (Actos) 45 mg PO DAILY [facility] Last Admin: 07/05/18 10:14 Dose: 45 mg Rosuvastatin Calcium (Crestor) 10 mg PO HS [facility] Last Admin: 07/05/18 21:52 Dose: 10 mg Sitagliptin Phosphate (Januvia) 25 mg PO DAILY [facility] Last Admin: 07/06/18 11:07 Dose: Not Given Sodium Hypochlorite (Dakins Solution 0.25%) 1 ml TOP QSHIFT [facility] Last Admin: 07/06/18 05:38 Dose: Not Given - Labs Labs: 07/05/18 08:05 07/06/18 06:20 PT 12.3 SECONDS (9.7-12.2) H 07/02/18 17:43 INR 1.1 07/02/18 17:43 APTT 30 SECONDS (21-34) 07/02/18 17:43
[2018-07-06] MEDS: Sodium Chloride 0.9% 1,000 ML IV SCH (14:26)
[2018-07-06] MEDS ORDERED: Iodixanol 320 mg/ml 150 ml Bottle IV ONE (16:47)
[2018-07-06] MEDS: Piperacill/Tazo 2.25gm in Dex 2.25 GM/50 ML BAG IVPB SCH (22:21)
[2018-07-07] MEDS: Dextrose 5%/0.45% NS 1,000 ML IV SCH ×2 (00:15→13:39)
[2018-07-07] MEDS: Linezolid 600 mg in D5W 300 ml 600 MG/300 ML BAG IVPB SCH (04:03)
[2018-07-07] MEDS: Piperacill/Tazo 2.25gm in Dex 2.25 GM/50 ML BAG IVPB SCH ×3 (05:36→21:54)
[2018-07-07] MEDS: Piperacill/Tazo 3.375gm in Dex 3.375 GM/50 ML BAG IVPB SCH (05:36)
[2018-07-07] MEDS: Dakin's Topical 0.25%-Half Strength (480 ml) TOP SCH ×3 (06:00→22:00)
[2018-07-07 07:12] LABS: HEMOGLOBIN 9.7 g/dL (11.0-16.0); MEAN CELL VOLUME 85.9 fL (81.0-99.0); MEAN CORPUSCULAR HEMOGLOBIN 28.2 pg (27.0-31.0); MEAN CORPUSCULAR HGB CONC 32.9 g/dL (33.0-37.0); MEAN PLATELET VOLUME 7.6 fL (7.2-11.7); RBC 3.42 Mil/uL (3.80-5.20); RED CELL DISTRIBUTION WIDTH 13.6 % (11.5-14.5); WHITE BLOOD COUNT 11.4 K/uL (4.8-10.8)
[2018-07-07 07:40] LABS: CALCIUM 8.1 mg/dl (8.6-10.4)
[2018-07-07] MEDS: (Novolog) Insulin Aspart, Recombinant 100 u/ml 10 ml vial SC SCH ×4 (08:03→21:42)
[2018-07-07] MEDS: Sodium Chloride 0.9% 1,000 ML IV SCH (09:40)
--- NOTE | 2018-07-07 10:08 | CP.PCM.PN ---
Subjective - Date & Time of Evaluation Date of Evaluation: 07/07/18 Time of Evaluation: 10:04 - Subjective Subjective: Vascular Surgery: Dr. Hobson Pt seen and examined. No acute overnight events. Pt underwent I&D of left hallux with podiatry yesterday. States she feels ok this morning. Denies pain, fevers/chills. Objective - Vital Signs/Intake and Output Vital Signs (last 24 hours): Temp Pulse Resp BP Pulse Ox 98.5 F 74 20 124/60 96 07/07/18 07:46 07/07/18 07:46 07/07/18 07:46 07/07/18 07:46 07/07/18 07:46 Intake and Output: 07/07/18 07/07/18 06:59 18:59 Intake Total 1660 Balance 1660 - Medications Medications: Current Medications Acetaminophen (Tylenol 325mg Tab) 650 mg PO Q6 PRN PRN Reason: Fever >100.4 F Last Admin: 07/04/18 17:05 Dose: 650 mg Acetaminophen (Tylenol 325mg Tab) 650 mg PO Q6 PRN PRN Reason: Pain, Mild (1-3) Aspirin (Ecotrin) 81 mg PO DAILY [facility] Last Admin: 07/05/18 10:04 Dose: 81 mg Fenofibrate (Tricor) 48 mg PO DAILY [facility] Last Admin: 07/07/18 09:23 Dose: 48 mg Glipizide (Glucotrol) 5 mg PO DAILY [facility] Last Admin: 07/05/18 10:04 Dose: 5 mg Heparin Sodium (Porcine) (Heparin) 5,000 units SC Q12 [facility] Last Admin: 07/05/18 10:15 Dose: Not Given Linezolid (Zyvox 600mg/300ml D5w) 600 mg in 300 mls @ 200 mls/hr IVPB Q12H [facility]; Protocol Last Admin: 07/07/18 04:03 Dose: 200 mls/hr Dextrose/Sodium Chloride (Dextrose 5%/0.45% Ns 1000 Ml) 1,000 mls @ 80 mls/hr IV .[id number] [facility] Last Admin: 07/07/18 00:15 Dose: Not Given Sodium Chloride (Sodium Chloride 0.9%) 1,000 mls @ 50 mls/hr IV .Q20H [facility] Last Admin: 07/07/18 09:40 Dose: Not Given Piperacillin Sod/Tazobactam Sod (Zosyn 2.25 Gm Iv Premix) 2.25 gm in 50 mls @ 100 mls/hr IVPB Q8H [facility]; Protocol Last Admin: 07/07/18 05:36 Dose: 100 mls/hr Insulin Aspart (Novolog) 0 unit SC ACHS [facility]; Protocol Last Admin: 07/07/18 08:03 Dose: Not Given Metformin HCl (Glucophage Xr) 500 mg PO BIDCC [facility] Last Admin: 07/05/18 17:48 Dose: Not Given Oxycodone/Acetaminophen (Percocet 5/325 Mg Tab) 1 tab PO Q6H PRN PRN Reason: Pain, moderate (4-7) Stop: 07/09/18 12:59 Oxycodone/Acetaminophen (Percocet 5/325 Mg Tab) 2 tab PO Q6H PRN PRN Reason: Pain, severe (8-10) Stop: 07/09/18 12:59 Pioglitazone HCl (Actos) 45 mg PO DAILY [facility] Last Admin: 07/05/18 10:14 Dose: 45 mg Rosuvastatin Calcium (Crestor) 10 mg PO HS [facility] Last Admin: 07/06/18 22:22 Dose: 10 mg Sitagliptin Phosphate (Januvia) 25 mg PO DAILY [facility] Last Admin: 07/06/18 11:07 Dose: Not Given Sodium Hypochlorite (Dakins Solution 0.25%) 1 ml TOP QSHIFT [facility] Last Admin: 07/07/18 06:00 Dose: Not Given - Labs Labs: 07/07/18 07:05 07/07/18 07:05 PT 12.3 SECONDS (9.7-12.2) H 07/02/18 17:43 INR 1.1 07/02/18 17:43 APTT 30 SECONDS (21-34) 07/02/18 17:43 - Constitutional Appears: Well, No Acute Distress - Head Exam Head Exam: ATRAUMATIC, NORMOCEPHALIC - Eye Exam Eye Exam: Normal appearance - ENT Exam ENT Exam: Mucous Membranes Moist - Respiratory Exam Respiratory Exam: NORMAL BREATHING PATTERN - Cardiovascular Exam Cardiovascular Exam: RRR - GI/Abdominal Exam GI & Abdominal Exam: Soft. absent: Distended, Tenderness - Extremities Exam Additional comments: left foot with dressing clean/dry/intact - Neurological Exam Neurological Exam: Alert, Awake, Oriented x3 - Skin Skin Exam: Dry, Warm Assessment and Plan - Assessment and Plan (Free Text) Assessment: 83F with cellulitis/osteo of L hallux Plan: - cont IV ABX per ID - wound management per podiatry - f/u CTA & MIGUEL ÁNGEL/PVRs - d/w Dr. Jazlyn Pulliam
--- NOTE | 2018-07-07 11:33 | OP ---
PROCEDURE DATE: 07/06/2018 PREOPERATIVE DIAGNOSIS: Left foot abscess. POSTOPERATIVE DIAGNOSIS: Left foot abscess. PROCEDURE PERFORMED: Left foot incision and drainage. SURGEON: Murphy Mckay DPM CANDY MIXER: Roman Puri DPM, PGY-2 ANESTHESIOLOGIST: Dr. Singh ANESTHESIA: IV sedation with local, 15 mL of 1:1 mixture of 1% lidocaine plain and 0.25% Marcaine plain. INDICATION: The patient is an 83-year-old female with the above-mentioned diagnosis. The patient presented to [facility] on 07/03/2018 complaining of increased redness, pain, and swelling to her left hallux over the past three weeks. On 07/04/2018, an abscess was drained around her left hallux. However, the following the day, white count continued to increase with no signs and symptoms of improvement. So, the patient was taken to the OR as she needed surgical intervention. The patient signed a consent after careful explanation of risks, benefits, alternatives and complications of the procedure and wishes to proceed. No guarantees were given nor implied. NPO was confirmed prior to bringing the patient to the operating room. PREPARATION: The patient was brought into the operating room and placed on the operating room table in supine position. Time-out was performed for identification of the correct patient and procedure. No pneumatic ankle tourniquet for hemostasis was used. After the induction of IV sedation, a local block of 15 mL of 1:1 mixture of 1% lidocaine plain and 0.25% Marcaine plain was administered. Once local anesthesia was achieved, the left foot was then prepped and draped in normal sterile manner. DESCRIPTION OF PROCEDURE: Left foot incision and drainage: Attention was directed to the dorsal medial aspect of the left hallux where an approximately 4 cm linear longitudinal incision was made. Incision was deepened through subcutaneous tissues with care being taken to identify and retract all vital neurovascular structures. Once the incision was deepened, at this time approximately 5 mL of purulence were able to be expressed mostly localized along the dorsal proximal and proximal medial aspects of the left hallux. The hallux and the first interspace were milked in order to release purulence with the same method done along the plantar medial aspects of the left foot. Using the [employer] ultrasonic cylindrical tip with normal saline, the instrument was probed from the dorsal medial incision and moved to the first interspace. Utilizing a #15-blade, a stab incision was made in the first interspace and at this time using the Misonix cylindrical tip, the interspace was debrided. Following this, the wounds were packed with 0.25-inch iodoform medially, dorsally, and through the communication within the first interspace. Following this, the skin was re-approximated utilizing 3-0 Prolene. Postoperative bandages included a dry sterile dressing. POSTOPERATIVE CONDITION: The patient tolerated the procedure and anesthesia well and was escorted to the recovery room with vital signs stable and neurovascular status intact to the left lower extremity. The patient will remain strictly nonweightbearing with bedside commode orders only, and Podiatry will continue to follow the patient while the patient remains in-house. Roman Puri DPM Murphy Mckay DPM
--- NOTE | 2018-07-07 12:12 | CP.PCM.PN ---
Subjective - Date & Time of Evaluation Date of Evaluation: 07/07/18 Time of Evaluation: 07:00 - Subjective Subjective: s/p drainage left foot abscess hallux MRI + OM Objective - Vital Signs/Intake and Output Vital Signs (last 24 hours): Temp Pulse Resp BP Pulse Ox 98.5 F 74 20 124/60 96 07/07/18 07:46 07/07/18 07:46 07/07/18 07:46 07/07/18 07:46 07/07/18 07:46 Intake and Output: 07/07/18 07/07/18 06:59 18:59 Intake Total 1660 Balance 1660 - Medications Medications: Current Medications Acetaminophen (Tylenol 325mg Tab) 650 mg PO Q6 PRN PRN Reason: Fever >100.4 F Last Admin: 07/04/18 17:05 Dose: 650 mg Acetaminophen (Tylenol 325mg Tab) 650 mg PO Q6 PRN PRN Reason: Pain, Mild (1-3) Aspirin (Ecotrin) 81 mg PO DAILY [facility] Last Admin: 07/05/18 10:04 Dose: 81 mg Fenofibrate (Tricor) 48 mg PO DAILY [facility] Last Admin: 07/07/18 09:23 Dose: 48 mg Glipizide (Glucotrol) 5 mg PO DAILY [facility] Last Admin: 07/05/18 10:04 Dose: 5 mg Heparin Sodium (Porcine) (Heparin) 5,000 units SC Q12 [facility] Last Admin: 07/05/18 10:15 Dose: Not Given Linezolid (Zyvox 600mg/300ml D5w) 600 mg in 300 mls @ 200 mls/hr IVPB Q12H [facility]; Protocol Last Admin: 07/07/18 04:03 Dose: 200 mls/hr Dextrose/Sodium Chloride (Dextrose 5%/0.45% Ns 1000 Ml) 1,000 mls @ 80 mls/hr IV .[id number] [facility] Last Admin: 07/07/18 00:15 Dose: Not Given Sodium Chloride (Sodium Chloride 0.9%) 1,000 mls @ 50 mls/hr IV .Q20H [facility] Last Admin: 07/07/18 09:40 Dose: Not Given Piperacillin Sod/Tazobactam Sod (Zosyn 2.25 Gm Iv Premix) 2.25 gm in 50 mls @ 100 mls/hr IVPB Q8H [facility]; Protocol Last Admin: 07/07/18 05:36 Dose: 100 mls/hr Insulin Aspart (Novolog) 0 unit SC ACHS [facility]; Protocol Last Admin: 07/07/18 11:32 Dose: Not Given Metformin HCl (Glucophage Xr) 500 mg PO BIDCC [facility] Last Admin: 07/05/18 17:48 Dose: Not Given Oxycodone/Acetaminophen (Percocet 5/325 Mg Tab) 1 tab PO Q6H PRN PRN Reason: Pain, moderate (4-7) Stop: 07/09/18 12:59 Oxycodone/Acetaminophen (Percocet 5/325 Mg Tab) 2 tab PO Q6H PRN PRN Reason: Pain, severe (8-10) Stop: 07/09/18 12:59 Pioglitazone HCl (Actos) 45 mg PO DAILY [facility] Last Admin: 07/05/18 10:14 Dose: 45 mg Rosuvastatin Calcium (Crestor) 10 mg PO HS [facility] Last Admin: 07/06/18 22:22 Dose: 10 mg Sitagliptin Phosphate (Januvia) 25 mg PO DAILY [facility] Last Admin: 07/07/18 11:32 Dose: Not Given Sodium Hypochlorite (Dakins Solution 0.25%) 1 ml TOP QSHIFT [facility] Last Admin: 07/07/18 06:00 Dose: Not Given - Labs Labs: 07/07/18 07:05 07/07/18 07:05 PT 12.3 SECONDS (9.7-12.2) H 07/02/18 17:43 INR 1.1 07/02/18 17:43 APTT 30 SECONDS (21-34) 07/02/18 17:43 - Constitutional Appears: Well - Head Exam Head Exam: ATRAUMATIC, NORMAL INSPECTION, NORMOCEPHALIC - Eye Exam Eye Exam: EOMI, Normal appearance, PERRL Pupil Exam: NORMAL ACCOMODATION, PERRL - ENT Exam ENT Exam: Mucous Membranes Moist, Normal Exam - Neck Exam Neck Exam: Full ROM, Normal Inspection. absent: Lymphadenopathy - Respiratory Exam Respiratory Exam: Clear to Ausculation Bilateral, NORMAL BREATHING PATTERN - Cardiovascular Exam Cardiovascular Exam: REGULAR RHYTHM, +S1, +S2. absent: Murmur - GI/Abdominal Exam GI & Abdominal Exam: Soft, Normal Bowel Sounds. absent: Tenderness - Rectal Exam Rectal Exam: Deferred - Exam Exam: NORMAL INSPECTION - Extremities Exam Extremities Exam: Full ROM, Normal Capillary Refill, Normal Inspection. absent: Joint Swelling, Pedal Edema - Back Exam Back Exam: NORMAL INSPECTION - Neurological Exam Neurological Exam: Alert, Awake, CN II-XII Intact, Normal Gait, Oriented x3 - Psychiatric Exam Psychiatric exam: Normal Affect, Normal Mood - Skin Skin Exam: Dry, Intact, Normal Color, Warm - Additional Findings Additional findings: wound c/d/i Assessment and Plan (1) Cellulitis Status: Acute (2) Arterial, arteriole and capillary disease Status: Acute (3) Diabetes Status: Acute - Assessment and Plan (Free Text) Assessment: s/p drainage left foot abscess hallux MRI + OM
--- NOTE | 2018-07-07 13:04 | VASCLAB ---
Date of service: 07/07/2018 STUDY DESCRIPTION: Lower Extremity Arterial Exam (PVR). HISTORY: pvd PRIORS: None. TECHNIQUE: Pulse volume recording waveforms and segmental pressures of bilateral lower extremities at multiple levels were obtained. Ankle Brachial Indices (ABIs) were calculated. Report prepared by NATHEN Bowman RIGHT LOWER EXTREMITY: * Brachial artery: Pressure - 137 mmHg. * Low thigh: Pressure - 192 mmHg: Ratio - 1.40 PVR waveform: Pulsatile * Calf: Pressure - 163 mmHg: Ratio - 1.19 PVR waveform: Pulsatile * Posterior tibial Artery: Pressure - 147 mmHg: Ratio - 1.07 PVR waveform: Pulsatile * Dorsalis pedis Artery: Pressure - 160 mmHg: Ratio - 1.17 PVR waveform: Pulsatile Ankle brachial index (MIGUEL ÁNGEL): 1.17 LEFT LOWER EXTREMITY: * Brachial artery: Pressure - 128 mmHg. * Low thigh: Pressure - 220 mmHg: Ratio - n/c PVR waveform: Pulsatile * Calf: Pressure - 107 mmHg: Ratio - 0.78 PVR waveform: Pulsatile * Posterior tibial Artery: Unable to obtain * Dorsalis pedis Artery: Pressure - 97 mmHg: Ratio - 0.71 PVR waveform: Pulsatile Ankle brachial index (MIGUEL ÁNGEL): 0.71 OTHER FINDINGS: Limited evaluation of the left side. Covered foot/ status post I&D. IMPRESSION: Right: There was no evidence of hemodynamically significant arterial insufficiency in the right lower extremity. Left: There was no evidence of hemodynamically significant arterial insufficiency in the left lower extremity.
[2018-07-07] MEDS ORDERED: Iodixanol 320 mg/ml 150 ml Bottle IV ONE ×2 (14:16→16:07)
[2018-07-07] MEDS ORDERED: Iodixanol 320 MG/ML 200 ML BOTTLE IV ONE (15:06)
--- NOTE | 2018-07-07 17:48 | CP.PCM.PN ---
Subjective - Date & Time of Evaluation Date of Evaluation: 07/07/18 Time of Evaluation: 08:00 - Subjective Subjective: clinically same Objective - Vital Signs/Intake and Output Vital Signs (last 24 hours): Temp Pulse Resp BP Pulse Ox 98.9 F 78 20 157/75 H 93 L 07/07/18 16:43 07/07/18 16:43 07/07/18 16:43 07/07/18 16:43 07/07/18 16:43 Intake and Output: 07/07/18 07/07/18 06:59 18:59 Intake Total 1660 200 Balance 1660 200 - Medications Medications: Current Medications Acetaminophen (Tylenol 325mg Tab) 650 mg PO Q6 PRN PRN Reason: Fever >100.4 F Last Admin: 07/04/18 17:05 Dose: 650 mg Acetaminophen (Tylenol 325mg Tab) 650 mg PO Q6 PRN PRN Reason: Pain, Mild (1-3) Aspirin (Ecotrin) 81 mg PO DAILY [facility] Last Admin: 07/05/18 10:04 Dose: 81 mg Fenofibrate (Tricor) 48 mg PO DAILY [facility] Last Admin: 07/07/18 09:23 Dose: 48 mg Glipizide (Glucotrol) 5 mg PO DAILY [facility] Last Admin: 07/05/18 10:04 Dose: 5 mg Heparin Sodium (Porcine) (Heparin) 5,000 units SC Q12 [facility] Last Admin: 07/05/18 10:15 Dose: Not Given Dextrose/Sodium Chloride (Dextrose 5%/0.45% Ns 1000 Ml) 1,000 mls @ 80 mls/hr IV .[id number] [facility] Last Admin: 07/07/18 13:39 Dose: Not Given Sodium Chloride (Sodium Chloride 0.9%) 1,000 mls @ 50 mls/hr IV .Q20H [facility] Last Admin: 07/07/18 09:40 Dose: Not Given Piperacillin Sod/Tazobactam Sod (Zosyn 2.25 Gm Iv Premix) 2.25 gm in 50 mls @ 100 mls/hr IVPB Q8H [facility]; Protocol Last Admin: 07/07/18 13:45 Dose: 100 mls/hr Insulin Aspart (Novolog) 0 unit SC ACHS [facility]; Protocol Last Admin: 07/07/18 16:30 Dose: 2 u Metformin HCl (Glucophage Xr) 500 mg PO BIDCC [facility] Last Admin: 07/05/18 17:48 Dose: Not Given Oxycodone/Acetaminophen (Percocet 5/325 Mg Tab) 1 tab PO Q6H PRN PRN Reason: Pain, moderate (4-7) Stop: 07/09/18 12:59 Oxycodone/Acetaminophen (Percocet 5/325 Mg Tab) 2 tab PO Q6H PRN PRN Reason: Pain, severe (8-10) Stop: 07/09/18 12:59 Pioglitazone HCl (Actos) 45 mg PO DAILY [facility] Last Admin: 07/05/18 10:14 Dose: 45 mg Rosuvastatin Calcium (Crestor) 10 mg PO HS [facility] Last Admin: 07/06/18 22:22 Dose: 10 mg Sitagliptin Phosphate (Januvia) 25 mg PO DAILY [facility] Last Admin: 07/07/18 11:32 Dose: Not Given Sodium Hypochlorite (Dakins Solution 0.25%) 1 ml TOP QSHIFT [facility] Last Admin: 07/07/18 13:39 Dose: Not Given - Labs Labs: 07/07/18 07:05 07/07/18 07:05 PT 12.3 SECONDS (9.7-12.2) H 07/02/18 17:43 INR 1.1 07/02/18 17:43 APTT 30 SECONDS (21-34) 07/02/18 17:43
--- NOTE | 2018-07-07 21:57 | CP.PCM.PN ---
Subjective - Date & Time of Evaluation Date of Evaluation: 07/07/18 Time of Evaluation: 12:00 - Subjective Subjective: Podiatry progress note - Dr. Mckay 83F seen and evaluated this AM 1 day s/p left foot incision and drainage. Reports pain in left foot well-controlled. For PICC placement today. Denies n/v/f/d/c/sob/arreola/cp. Objective - Vital Signs/Intake and Output Vital Signs (last 24 hours): Temp Pulse Resp BP Pulse Ox 98.9 F 78 20 157/75 H 93 L 07/07/18 16:43 07/07/18 16:43 07/07/18 16:43 07/07/18 16:43 07/07/18 16:43 Intake and Output: 07/07/18 07/08/18 18:59 06:59 Intake Total 200 Balance 200 - Medications Medications: Current Medications Acetaminophen (Tylenol 325mg Tab) 650 mg PO Q6 PRN PRN Reason: Fever >100.4 F Last Admin: 07/04/18 17:05 Dose: 650 mg Acetaminophen (Tylenol 325mg Tab) 650 mg PO Q6 PRN PRN Reason: Pain, Mild (1-3) Aspirin (Ecotrin) 81 mg PO DAILY [facility] Last Admin: 07/05/18 10:04 Dose: 81 mg Fenofibrate (Tricor) 48 mg PO DAILY [facility] Last Admin: 07/07/18 09:23 Dose: 48 mg Glipizide (Glucotrol) 5 mg PO DAILY [facility] Last Admin: 07/05/18 10:04 Dose: 5 mg Heparin Sodium (Porcine) (Heparin) 5,000 units SC Q12 [facility] Last Admin: 07/05/18 10:15 Dose: Not Given Dextrose/Sodium Chloride (Dextrose 5%/0.45% Ns 1000 Ml) 1,000 mls @ 80 mls/hr IV .[id number] [facility] Last Admin: 07/07/18 13:39 Dose: Not Given Sodium Chloride (Sodium Chloride 0.9%) 1,000 mls @ 50 mls/hr IV .Q20H [facility] Last Admin: 07/07/18 09:40 Dose: Not Given Piperacillin Sod/Tazobactam Sod (Zosyn 2.25 Gm Iv Premix) 2.25 gm in 50 mls @ 100 mls/hr IVPB Q8H [facility]; Protocol Last Admin: 07/07/18 13:45 Dose: 100 mls/hr Insulin Aspart (Novolog) 0 unit SC ACHS [facility]; Protocol Last Admin: 07/07/18 21:42 Dose: Not Given Metformin HCl (Glucophage Xr) 500 mg PO BIDCC [facility] Last Admin: 07/05/18 17:48 Dose: Not Given Oxycodone/Acetaminophen (Percocet 5/325 Mg Tab) 1 tab PO Q6H PRN PRN Reason: Pain, moderate (4-7) Stop: 07/09/18 12:59 Oxycodone/Acetaminophen (Percocet 5/325 Mg Tab) 2 tab PO Q6H PRN PRN Reason: Pain, severe (8-10) Stop: 07/09/18 12:59 Pioglitazone HCl (Actos) 45 mg PO DAILY [facility] Last Admin: 07/05/18 10:14 Dose: 45 mg Rosuvastatin Calcium (Crestor) 10 mg PO HS [facility] Last Admin: 07/06/18 22:22 Dose: 10 mg Sitagliptin Phosphate (Januvia) 25 mg PO DAILY [facility] Last Admin: 07/07/18 11:32 Dose: Not Given Sodium Hypochlorite (Dakins Solution 0.25%) 1 ml TOP QSHIFT [facility] Last Admin: 07/07/18 13:39 Dose: Not Given - Labs Labs: 07/07/18 07:05 07/07/18 07:05 PT 12.3 SECONDS (9.7-12.2) H 07/02/18 17:43 INR 1.1 07/02/18 17:43 APTT 30 SECONDS (21-34) 07/02/18 17:43 - Constitutional Appears: Non-toxic, No Acute Distress - Extremities Exam Additional comments: LLE focused exam VASC: DP and PT pulses weakly; cap refill <3 seconds to digits 2-5, unable to asses hallux; temp gradient warm to warm; edema noted locally at the hallux DERM: Linear surgical incision noted to dorsomedial hallux with sutures in place; packing present-s/p removal wound bed is 100% granular with serosanguinous drainage present; no purulence present; minimal malodor. Dusky changes noted to hallux. ORTHO: Pain on palpation hallux, pain upon 1st MPJ and IPJ ROM. Pain on palpation along incision sites. NEURO: gross and protective sensation diminished - Neurological Exam Neurological Exam: Alert, Awake, Oriented x3 - Psychiatric Exam Psychiatric exam: Normal Affect, Normal Mood Assessment and Plan - Assessment and Plan (Free Text) Assessment: 83F POD#1 left foot incision and drainage Plan: Patient seen and evaluated with Dr. 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
[2018-07-08] MEDS: Dextrose 5%/0.45% NS 1,000 ML IV SCH (01:25)
[2018-07-08] MEDS: Sodium Chloride 0.9% 1,000 ML IV SCH (04:45)
[2018-07-08] MEDS: Piperacill/Tazo 2.25gm in Dex 2.25 GM/50 ML BAG IVPB SCH ×3 (04:47→21:18)
[2018-07-08] MEDS: Dakin's Topical 0.25%-Half Strength (480 ml) TOP SCH ×3 (06:03→22:54)
--- NOTE | 2018-07-08 08:10 | CP.PCM.PN ---
Subjective - Date & Time of Evaluation Date of Evaluation: 07/08/18 Time of Evaluation: 08:10 - Subjective Subjective: for angio 07/09 Objective - Vital Signs/Intake and Output Vital Signs (last 24 hours): Temp Pulse Resp BP Pulse Ox 98.2 F 69 20 151/61 H 96 07/08/18 08:01 07/08/18 08:01 07/08/18 08:01 07/08/18 08:01 07/08/18 08:01 Intake and Output: 07/08/18 07/08/18 06:59 18:59 Intake Total 200 Balance 200 - Medications Medications: Current Medications Acetaminophen (Tylenol 325mg Tab) 650 mg PO Q6 PRN PRN Reason: Fever >100.4 F Last Admin: 07/04/18 17:05 Dose: 650 mg Acetaminophen (Tylenol 325mg Tab) 650 mg PO Q6 PRN PRN Reason: Pain, Mild (1-3) Aspirin (Ecotrin) 81 mg PO DAILY [facility] Last Admin: 07/05/18 10:04 Dose: 81 mg Fenofibrate (Tricor) 48 mg PO DAILY [facility] Last Admin: 07/07/18 09:23 Dose: 48 mg Glipizide (Glucotrol) 5 mg PO DAILY [facility] Last Admin: 07/05/18 10:04 Dose: 5 mg Heparin Sodium (Porcine) (Heparin) 5,000 units SC Q12 [facility] Last Admin: 07/07/18 21:54 Dose: 5,000 units Dextrose/Sodium Chloride (Dextrose 5%/0.45% Ns 1000 Ml) 1,000 mls @ 80 mls/hr IV .[id number] [facility] Last Admin: 07/08/18 01:25 Dose: 80 mls/hr Sodium Chloride (Sodium Chloride 0.9%) 1,000 mls @ 50 mls/hr IV .Q20H [facility] Last Admin: 07/08/18 04:45 Dose: Not Given Piperacillin Sod/Tazobactam Sod (Zosyn 2.25 Gm Iv Premix) 2.25 gm in 50 mls @ 100 mls/hr IVPB Q8H [facility]; Protocol Last Admin: 07/08/18 04:47 Dose: 100 mls/hr Insulin Aspart (Novolog) 0 unit SC ACHS [facility]; Protocol Last Admin: 07/07/18 21:42 Dose: Not Given Metformin HCl (Glucophage Xr) 500 mg PO BIDCC [facility] Last Admin: 07/05/18 17:48 Dose: Not Given Oxycodone/Acetaminophen (Percocet 5/325 Mg Tab) 1 tab PO Q6H PRN PRN Reason: Pain, moderate (4-7) Stop: 07/09/18 12:59 Oxycodone/Acetaminophen (Percocet 5/325 Mg Tab) 2 tab PO Q6H PRN PRN Reason: Pain, severe (8-10) Stop: 07/09/18 12:59 Pioglitazone HCl (Actos) 45 mg PO DAILY [facility] Last Admin: 07/05/18 10:14 Dose: 45 mg Rosuvastatin Calcium (Crestor) 10 mg PO HS [facility] Last Admin: 07/07/18 21:54 Dose: 10 mg Sitagliptin Phosphate (Januvia) 25 mg PO DAILY [facility] Last Admin: 07/07/18 11:32 Dose: Not Given Sodium Hypochlorite (Dakins Solution 0.25%) 1 ml TOP QSHIFT [facility] Last Admin: 07/08/18 06:03 Dose: Not Given - Labs Labs: 07/07/18 07:05 07/07/18 07:05 PT 12.3 SECONDS (9.7-12.2) H 07/02/18 17:43 INR 1.1 07/02/18 17:43 APTT 30 SECONDS (21-34) 07/02/18 17:43
[2018-07-08] MEDS: (Novolog) Insulin Aspart, Recombinant 100 u/ml 10 ml vial SC SCH ×4 (08:29→21:19)
--- NOTE | 2018-07-08 09:05 | RAD ---
Date of service: 07/08/2018 HISTORY: verify left PICC COMPARISON: Chest x-ray 07/02/2018 TECHNIQUE: Chest one view . FINDINGS: LUNGS: No focal consolidation is seen. Mild left basilar atelectasis. PLEURA: No pleural effusion is identified. CARDIOVASCULAR: Heart size is within normal limits. Atherosclerotic calcifications noted of the aorta.there is a left-sided PICC line with tip overlying the region of the SVC. OSSEOUS STRUCTURES: No acute fracture identified. VISUALIZED UPPER ABDOMEN: Unremarkable. OTHER FINDINGS: None. IMPRESSION: Mild left basilar atelectasis. Left-sided PICC line in position as above.
--- NOTE | 2018-07-08 10:06 | CT ---
Date of service: 07/07/2018 PROCEDURE: CT Angiography Abdomen, Pelvis and Lower Extremity with Contrast HISTORY: eval PVD, left hallux osteo COMPARISON: None available. TECHNIQUE: Technique: CT angiography of the abdomen, pelvis and bilateral lower extremities performed in the arterial phase of enhancement. Coronal and sagittal reformats, and well as rotating MIP images of the vessels generated at the workstation. Intravenous contrast dose: 150 milliliters Visipaque 320 Radiation dose: Total exam DLP = 1547.6 mGy-cm. This CT exam was performed using one or more of the following dose reduction techniques: Automated exposure control, adjustment of the mA and/or kV according to patient size, and/or use of iterative reconstruction technique. FINDINGS: CT ANGIOGRAPHY: ABDOMINAL AORTA:: Mild calcific plaque in the aorta without aneurysm or stenosis. MAJOR AORTIC BRANCHES: Celiac [place]: Unremarkable. Superior mesenteric artery: Unremarkable. Inferior mesenteric artery: Unremarkable. Renal arteries: Unremarkable. PELVIC ARTERIES: Right Common Iliac: Mild calcific plaque with no significant stenosis. Right External Iliac: Unremarkable. Right Internal Iliac: Unremarkable. Left Common Iliac: Callus calcific plaque with no significant stenosis. Left External Iliac: Unremarkable. Left Internal Iliac: Unremarkable. RIGHT LOWER EXTREMITY ARTERIES: Right Common Femoral: Unremarkable. Right Superficial Femoral: Mild plaque within the SFA with no significant stenosis. Right Profunda Femoris: Unremarkable. Right Popliteal:Plaque in the popliteal artery with no significant stenosis. Right Anterior Tibial: Unremarkable. Right Tibioperoneal Trunk: Unremarkable. Right Posterior Tibial: Unremarkable. Right Peroneal: Unremarkable. Right dorsalis pedis : Unremarkable. LEFT LOWER EXTREMITY ARTERIES: Left Common Femoral: Plaque in the SFA with no significant stenosis. Left Superficial Femoral: Unremarkable. Left Profunda Femoris: Unremarkable. Left Popliteal: Occlusion of the below-knee popliteal artery. Left Anterior Tibial: Unremarkable. Left Tibioperoneal Trunk: Unremarkable. Left Posterior Tibial: Unremarkable. Left Peroneal: Calcification in distal segment limits evaluation. Believed to be patent. Left Dorsalis pedis: Unremarkable. NON-ANGIOGRAPHIC ASPECT OF THE EXAM: LOWER THORAX: Unremarkable. LIVER: Unremarkable. No gross lesion or ductal dilatation. GALLBLADDER AND BILE DUCTS: Previous cholecystectomy. PANCREAS: Unremarkable. No gross lesion or ductal dilatation. SPLEEN: Unremarkable. ADRENALS: Unremarkable. No mass. KIDNEYS AND URETERS: Unremarkable. No hydronephrosis. No solid mass. STOMACH AND BOWEL: Evaluation of PO contrast.. No obstruction. No gross mural thickening. APPENDIX: Normal appendix. PERITONEUM: Unremarkable. No free fluid. No free air. LYMPH NODES: Unremarkable. No enlarged lymph nodes. BLADDER: Unremarkable. REPRODUCTIVE: Unremarkable. BONES: No acute fracture. OTHER FINDINGS: None. IMPRESSION: CT ANGIOGRAM ABDOMEN/PELVIS: Essentially unremarkable CT angiogram of the abdomen pelvis. LEFT LOWER EXTREMITY CT ANGIOGRAM: 1. 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 2. The common femoral artery, profunda femoral artery, superficial femoral artery are unremarkable. 3. Runoff shows patent anterior tibial artery posterior tibial artery. The peroneal artery likewise is believed to be patent. However, moderate calcification distal segment limits evaluation for RIGHT LOWER EXTREMITY CT ANGIOGRAM: 1. Essentially unremarkable CT angiogram of the right lower extremity. There is mild calcific plaque throughout the SFA. The common femoral artery, profunda femoral, superficial femoral artery popliteal artery patent. 2. Patent 3 vessel runoff.
--- NOTE | 2018-07-08 11:57 | CP.PCM.PN ---
Subjective - Date & Time of Evaluation Date of Evaluation: 07/08/18 Time of Evaluation: 11:57 - Subjective Subjective: Podiatry progress note - Dr. Mckay 83 year old female patient seen and evaluated 2 days s/p left foot incision and drainage. Family present at bedside. PICC placed this AM. No new lower extremity complaints per patient. Denies n/v/f/d/c/sob/arreola/cp. Objective - Vital Signs/Intake and Output Vital Signs (last 24 hours): Temp Pulse Resp BP Pulse Ox 98.2 F 69 20 151/61 H 96 07/08/18 08:01 07/08/18 08:01 07/08/18 08:01 07/08/18 08:01 07/08/18 08:01 Intake and Output: 07/08/18 07/08/18 06:59 18:59 Intake Total 200 Balance 200 - Medications Medications: Current Medications Acetaminophen (Tylenol 325mg Tab) 650 mg PO Q6 PRN PRN Reason: Fever >100.4 F Last Admin: 07/04/18 17:05 Dose: 650 mg Acetaminophen (Tylenol 325mg Tab) 650 mg PO Q6 PRN PRN Reason: Pain, Mild (1-3) Aspirin (Ecotrin) 81 mg PO DAILY [facility] Last Admin: 07/05/18 10:04 Dose: 81 mg Fenofibrate (Tricor) 48 mg PO DAILY [facility] Last Admin: 07/08/18 10:31 Dose: 48 mg Glipizide (Glucotrol) 5 mg PO DAILY [facility] Last Admin: 07/05/18 10:04 Dose: 5 mg Heparin Sodium (Porcine) (Heparin) 5,000 units SC Q12 [facility] Last Admin: 07/08/18 10:31 Dose: 5,000 units Dextrose/Sodium Chloride (Dextrose 5%/0.45% Ns 1000 Ml) 1,000 mls @ 80 mls/hr IV .[id number] [facility] Last Admin: 07/08/18 01:25 Dose: 80 mls/hr Sodium Chloride (Sodium Chloride 0.9%) 1,000 mls @ 50 mls/hr IV .Q20H [facility] Last Admin: 07/08/18 04:45 Dose: Not Given Piperacillin Sod/Tazobactam Sod (Zosyn 2.25 Gm Iv Premix) 2.25 gm in 50 mls @ 100 mls/hr IVPB Q8H [facility]; Protocol Last Admin: 07/08/18 04:47 Dose: 100 mls/hr Insulin Aspart (Novolog) 0 unit SC ACHS [facility]; Protocol Last Admin: 07/08/18 08:29 Dose: 3 u Metformin HCl (Glucophage Xr) 500 mg PO BIDCC [facility] Last Admin: 07/05/18 17:48 Dose: Not Given Oxycodone/Acetaminophen (Percocet 5/325 Mg Tab) 1 tab PO Q6H PRN PRN Reason: Pain, moderate (4-7) Stop: 07/09/18 12:59 Oxycodone/Acetaminophen (Percocet 5/325 Mg Tab) 2 tab PO Q6H PRN PRN Reason: Pain, severe (8-10) Stop: 07/09/18 12:59 Pioglitazone HCl (Actos) 45 mg PO DAILY [facility] Last Admin: 07/05/18 10:14 Dose: 45 mg Rosuvastatin Calcium (Crestor) 10 mg PO HS [facility] Last Admin: 07/07/18 21:54 Dose: 10 mg Sitagliptin Phosphate (Januvia) 25 mg PO DAILY [facility] Last Admin: 07/08/18 10:31 Dose: 25 mg Sodium Hypochlorite (Dakins Solution 0.25%) 1 ml TOP QSHIFT [facility] Last Admin: 07/08/18 06:03 Dose: Not Given - Labs Labs: 07/07/18 07:05 07/07/18 07:05 PT 12.3 SECONDS (9.7-12.2) H 07/02/18 17:43 INR 1.1 07/02/18 17:43 APTT 30 SECONDS (21-34) 07/02/18 17:43 - Constitutional Appears: Non-toxic, No Acute Distress - Extremities Exam Additional comments: LLE focused exam VASC: DP and PT pulses weakly palpable; cap refill <3 seconds to digits 2-5, unable to asses hallux; temp gradient warm to warm; edema noted locally at the hallux DERM: Linear surgical incision noted to dorsomedial hallux with sutures in place; wound bed is 100% granular with serosanguinous drainage present; no purulence present; minimal malodor. Dusky changes noted to hallux with demarcation of edges present. ORTHO: Pain on palpation hallux, pain upon 1st MPJ and IPJ ROM. Pain on palpation along incision sites. NEURO: gross and protective sensation diminished - Neurological Exam Neurological Exam: Alert, Awake, Oriented x3 - Psychiatric Exam Psychiatric exam: Normal Affect, Normal Mood Assessment and Plan - Assessment and Plan (Free Text) Assessment: 83F POD#2 left foot incision and drainage (DOS: 07/06/18) Plan: Patient seen and evaluated alongside attending, Dr. 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 patent, moderate calficiation distal segment Vascular recs appreciated - pending vascular status, patient may need partial 1st ray amputation; for CTA tomorrow Continue abx per ID Continue local wound care: [facility] Podiatry will continue to follow
--- NOTE | 2018-07-08 13:14 | CP.PCM.PN ---
Subjective - Date & Time of Evaluation Date of Evaluation: 07/08/18 Time of Evaluation: 13:11 - Subjective Subjective: Events reviewed. Objective - Vital Signs/Intake and Output Vital Signs (last 24 hours): Temp Pulse Resp BP Pulse Ox 98.2 F 69 20 151/61 H 96 07/08/18 08:01 07/08/18 08:01 07/08/18 08:01 07/08/18 08:01 07/08/18 08:01 Intake and Output: 07/08/18 07/08/18 06:59 18:59 Intake Total 200 Balance 200 - Medications Medications: Current Medications Acetaminophen (Tylenol 325mg Tab) 650 mg PO Q6 PRN PRN Reason: Fever >100.4 F Last Admin: 07/04/18 17:05 Dose: 650 mg Acetaminophen (Tylenol 325mg Tab) 650 mg PO Q6 PRN PRN Reason: Pain, Mild (1-3) Aspirin (Ecotrin) 81 mg PO DAILY [facility] Last Admin: 07/05/18 10:04 Dose: 81 mg Fenofibrate (Tricor) 48 mg PO DAILY [facility] Last Admin: 07/08/18 10:31 Dose: 48 mg Glipizide (Glucotrol) 5 mg PO DAILY [facility] Last Admin: 07/05/18 10:04 Dose: 5 mg Heparin Sodium (Porcine) (Heparin) 5,000 units SC Q12 [facility] Last Admin: 07/08/18 10:31 Dose: 5,000 units Dextrose/Sodium Chloride (Dextrose 5%/0.45% Ns 1000 Ml) 1,000 mls @ 80 mls/hr IV .[id number] [facility] Last Admin: 07/08/18 01:25 Dose: 80 mls/hr Sodium Chloride (Sodium Chloride 0.9%) 1,000 mls @ 50 mls/hr IV .Q20H [facility] Last Admin: 07/08/18 04:45 Dose: Not Given Piperacillin Sod/Tazobactam Sod (Zosyn 2.25 Gm Iv Premix) 2.25 gm in 50 mls @ 100 mls/hr IVPB Q8H [facility]; Protocol Last Admin: 07/08/18 04:47 Dose: 100 mls/hr Insulin Aspart (Novolog) 0 unit SC ACHS [facility]; Protocol Last Admin: 07/08/18 12:39 Dose: Not Given Metformin HCl (Glucophage Xr) 500 mg PO BIDCC [facility] Last Admin: 07/05/18 17:48 Dose: Not Given Oxycodone/Acetaminophen (Percocet 5/325 Mg Tab) 1 tab PO Q6H PRN PRN Reason: Pain, moderate (4-7) Stop: 07/09/18 12:59 Oxycodone/Acetaminophen (Percocet 5/325 Mg Tab) 2 tab PO Q6H PRN PRN Reason: Pain, severe (8-10) Stop: 07/09/18 12:59 Pioglitazone HCl (Actos) 45 mg PO DAILY [facility] Last Admin: 07/05/18 10:14 Dose: 45 mg Rosuvastatin Calcium (Crestor) 10 mg PO HS [facility] Last Admin: 07/07/18 21:54 Dose: 10 mg Sitagliptin Phosphate (Januvia) 25 mg PO DAILY [facility] Last Admin: 07/08/18 10:31 Dose: 25 mg Sodium Hypochlorite (Dakins Solution 0.25%) 1 ml TOP QSHIFT [facility] Last Admin: 07/08/18 06:03 Dose: Not Given - Labs Labs: 07/07/18 07:05 07/07/18 07:05 PT 12.3 SECONDS (9.7-12.2) H 07/02/18 17:43 INR 1.1 07/02/18 17:43 APTT 30 SECONDS (21-34) 07/02/18 17:43 Assessment and Plan - Assessment and Plan (Free Text) Assessment: Physical Exam - Constitutional Appears: No Acute Distress - Head Exam Head Exam: ATRAUMATIC, NORMAL INSPECTION, NORMOCEPHALIC - Eye Exam Eye Exam: EOMI, Normal appearance. absent: Scleral icterus - ENT Exam ENT Exam: Mucous Membranes Moist, Normal Oropharynx - Respiratory Exam Respiratory Exam: Clear to Auscultation Bilateral, NORMAL BREATHING PATTERN. absent: Rhonchi, Wheezes - Cardiovascular Exam Cardiovascular Exam: REGULAR RHYTHM, +S1, +S2. absent: Gallop, +S4, Systolic Murmur - GI/Abdominal Exam GI & Abdominal Exam: Normal Bowel Sounds, Soft. absent: Tenderness - Extremities Exam Extremities exam: Positive for: normal inspection (L. foot dressing, L. toe infection), pedal pulses present. Negative for: calf tenderness - Neurological Exam Neurological exam: Alert, Oriented x3 - Psychiatric Exam Psychiatric exam: Normal Affect, Normal Mood - Skin Skin Exam: Normal Color, Warm - EKG Data EKG Interpreted by: Myself - Imaging and Cardiology Chest x-ray Status: Image reviewed by me - Assessment and Plan (Free Text) Assessment: 83 woman Post op Day #1 I&D a of LGa toe scheduled for angiogram of lower extremity she is acceptable risk for this procedure. EKG: NSR, LBBB; CXR: No congestion or focal consolidation > No active CAD sx's or CHF sx's > Clinically: no volume overload > BP is acceptable > Cardiovascular auscultation is normal > HTN chronic stable, DM: > cont to improve glycemic control > Continue statin and fibrate; agree with ASA 81 Overall patient is ambulatory and able to perform 4 mets or more without any CV sx's CKD 3 noted, mild anemia Diabetes is chronic and stable on actos, metformin Hyperlipidemia is chronic and stable on high dose crestor and fibrate, consider changing fibrate to Vascepa or zetia as outpatient to reduce risk for stroke or [place] in the future.
--- NOTE | 2018-07-08 13:33 | CP.PCM.PN ---
Subjective - Date & Time of Evaluation Date of Evaluation: 07/08/18 Time of Evaluation: 07:00 - Subjective Subjective: seen on rounds IV rx renewed Objective - Vital Signs/Intake and Output Vital Signs (last 24 hours): Temp Pulse Resp BP Pulse Ox 98.2 F 69 20 151/61 H 96 07/08/18 08:01 07/08/18 08:01 07/08/18 08:01 07/08/18 08:01 07/08/18 08:01 Intake and Output: 07/08/18 07/08/18 06:59 18:59 Intake Total 200 Balance 200 - Medications Medications: Current Medications Acetaminophen (Tylenol 325mg Tab) 650 mg PO Q6 PRN PRN Reason: Fever >100.4 F Last Admin: 07/04/18 17:05 Dose: 650 mg Acetaminophen (Tylenol 325mg Tab) 650 mg PO Q6 PRN PRN Reason: Pain, Mild (1-3) Aspirin (Ecotrin) 81 mg PO DAILY [facility] Last Admin: 07/05/18 10:04 Dose: 81 mg Fenofibrate (Tricor) 48 mg PO DAILY [facility] Last Admin: 07/08/18 10:31 Dose: 48 mg Glipizide (Glucotrol) 5 mg PO DAILY [facility] Last Admin: 07/05/18 10:04 Dose: 5 mg Heparin Sodium (Porcine) (Heparin) 5,000 units SC Q12 [facility] Last Admin: 07/08/18 10:31 Dose: 5,000 units Dextrose/Sodium Chloride (Dextrose 5%/0.45% Ns 1000 Ml) 1,000 mls @ 80 mls/hr IV .[id number] [facility] Last Admin: 07/08/18 01:25 Dose: 80 mls/hr Sodium Chloride (Sodium Chloride 0.9%) 1,000 mls @ 50 mls/hr IV .Q20H [facility] Last Admin: 07/08/18 04:45 Dose: Not Given Piperacillin Sod/Tazobactam Sod (Zosyn 2.25 Gm Iv Premix) 2.25 gm in 50 mls @ 100 mls/hr IVPB Q8H [facility]; Protocol Last Admin: 07/08/18 13:30 Dose: 100 mls/hr Insulin Aspart (Novolog) 0 unit SC ACHS [facility]; Protocol Last Admin: 07/08/18 12:39 Dose: Not Given Metformin HCl (Glucophage Xr) 500 mg PO BIDCC [facility] Last Admin: 07/05/18 17:48 Dose: Not Given Oxycodone/Acetaminophen (Percocet 5/325 Mg Tab) 1 tab PO Q6H PRN PRN Reason: Pain, moderate (4-7) Stop: 07/09/18 12:59 Oxycodone/Acetaminophen (Percocet 5/325 Mg Tab) 2 tab PO Q6H PRN PRN Reason: Pain, severe (8-10) Stop: 07/09/18 12:59 Pioglitazone HCl (Actos) 45 mg PO DAILY [facility] Last Admin: 07/05/18 10:14 Dose: 45 mg Rosuvastatin Calcium (Crestor) 10 mg PO HS [facility] Last Admin: 07/07/18 21:54 Dose: 10 mg Sitagliptin Phosphate (Januvia) 25 mg PO DAILY [facility] Last Admin: 07/08/18 10:31 Dose: 25 mg Sodium Hypochlorite (Dakins Solution 0.25%) 1 ml TOP QSHIFT [facility] Last Admin: 07/08/18 13:30 Dose: Not Given - Labs Labs: 07/07/18 07:05 07/07/18 07:05 PT 12.3 SECONDS (9.7-12.2) H 07/02/18 17:43 INR 1.1 07/02/18 17:43 APTT 30 SECONDS (21-34) 07/02/18 17:43 - Constitutional Appears: No Acute Distress, Confused - Head Exam Head Exam: ATRAUMATIC, NORMAL INSPECTION, NORMOCEPHALIC - Eye Exam Eye Exam: EOMI, Normal appearance, PERRL Pupil Exam: NORMAL ACCOMODATION, PERRL - ENT Exam ENT Exam: Mucous Membranes Moist, Normal Exam - Neck Exam Neck Exam: Full ROM, Normal Inspection. absent: Lymphadenopathy - Respiratory Exam Respiratory Exam: Clear to Ausculation Bilateral, NORMAL BREATHING PATTERN - Cardiovascular Exam Cardiovascular Exam: REGULAR RHYTHM, +S1, +S2. absent: Murmur - GI/Abdominal Exam GI & Abdominal Exam: Soft, Normal Bowel Sounds. absent: Tenderness - Rectal Exam Rectal Exam: Deferred - Exam Exam: NORMAL INSPECTION - Extremities Exam Extremities Exam: Full ROM, Normal Capillary Refill, Normal Inspection. absent: Joint Swelling, Pedal Edema - Back Exam Back Exam: NORMAL INSPECTION - Neurological Exam Neurological Exam: Alert, Awake, CN II-XII Intact, Normal Gait, Oriented x3 - Psychiatric Exam Psychiatric exam: Normal Affect, Normal Mood - Skin Skin Exam: Dry Additional comments: wouind Left great toe w/o pulse diminisjhjed pulses Assessment and Plan (1) Cellulitis Status: Acute (2) Arterial, arteriole and capillary disease Status: Acute (3) Diabetes Status: Acute - Assessment and Plan (Free Text) Assessment: cont rx for Osteomyelitis ( empiric) await cultures will need 6 weeks IV antibiotics
--- NOTE | 2018-07-08 17:16 | CP.PCM.PN ---
Subjective - Date & Time of Evaluation Date of Evaluation: 07/08/18 Time of Evaluation: 08:00 - Subjective Subjective: clinically same Objective - Vital Signs/Intake and Output Vital Signs (last 24 hours): Temp Pulse Resp BP Pulse Ox 99.4 F 74 20 137/70 97 07/08/18 16:41 07/08/18 16:41 07/08/18 16:41 07/08/18 16:41 07/08/18 16:41 Intake and Output: 07/08/18 07/08/18 06:59 18:59 Intake Total 200 Balance 200 - Medications Medications: Current Medications Acetaminophen (Tylenol 325mg Tab) 650 mg PO Q6 PRN PRN Reason: Fever >100.4 F Last Admin: 07/04/18 17:05 Dose: 650 mg Acetaminophen (Tylenol 325mg Tab) 650 mg PO Q6 PRN PRN Reason: Pain, Mild (1-3) Aspirin (Ecotrin) 81 mg PO DAILY [facility] Last Admin: 07/05/18 10:04 Dose: 81 mg Fenofibrate (Tricor) 48 mg PO DAILY [facility] Last Admin: 07/08/18 10:31 Dose: 48 mg Glipizide (Glucotrol) 5 mg PO DAILY [facility] Last Admin: 07/05/18 10:04 Dose: 5 mg Heparin Sodium (Porcine) (Heparin) 5,000 units SC Q12 [facility] Last Admin: 07/08/18 10:31 Dose: 5,000 units Dextrose/Sodium Chloride (Dextrose 5%/0.45% Ns 1000 Ml) 1,000 mls @ 80 mls/hr IV .[id number] [facility] Last Admin: 07/08/18 01:25 Dose: 80 mls/hr Sodium Chloride (Sodium Chloride 0.9%) 1,000 mls @ 50 mls/hr IV .Q20H [facility] Last Admin: 07/08/18 04:45 Dose: Not Given Piperacillin Sod/Tazobactam Sod (Zosyn 2.25 Gm Iv Premix) 2.25 gm in 50 mls @ 100 mls/hr IVPB Q8H [facility]; Protocol Last Admin: 07/08/18 13:30 Dose: 100 mls/hr Insulin Aspart (Novolog) 0 unit SC ACHS [facility]; Protocol Last Admin: 07/08/18 16:30 Dose: Not Given Metformin HCl (Glucophage Xr) 500 mg PO BIDCC [facility] Last Admin: 07/05/18 17:48 Dose: Not Given Oxycodone/Acetaminophen (Percocet 5/325 Mg Tab) 1 tab PO Q6H PRN PRN Reason: Pain, moderate (4-7) Stop: 07/09/18 12:59 Oxycodone/Acetaminophen (Percocet 5/325 Mg Tab) 2 tab PO Q6H PRN PRN Reason: Pain, severe (8-10) Stop: 07/09/18 12:59 Pioglitazone HCl (Actos) 45 mg PO DAILY [facility] Last Admin: 07/05/18 10:14 Dose: 45 mg Rosuvastatin Calcium (Crestor) 10 mg PO HS [facility] Last Admin: 07/07/18 21:54 Dose: 10 mg Sitagliptin Phosphate (Januvia) 25 mg PO DAILY [facility] Last Admin: 07/08/18 10:31 Dose: 25 mg Sodium Hypochlorite (Dakins Solution 0.25%) 1 ml TOP QSHIFT [facility] Last Admin: 07/08/18 13:30 Dose: Not Given - Labs Labs: 07/07/18 07:05 07/07/18 07:05 PT 12.3 SECONDS (9.7-12.2) H 07/02/18 17:43 INR 1.1 07/02/18 17:43 APTT 30 SECONDS (21-34) 07/02/18 17:43
[2018-07-09] MEDS: Sodium Chloride 0.9% 1,000 ML IV SCH (01:45)
[2018-07-09] MEDS: Dextrose 5%/0.45% NS 1,000 ML IV SCH (02:15)
[2018-07-09] MEDS: Piperacill/Tazo 2.25gm in Dex 2.25 GM/50 ML BAG IVPB SCH ×3 (05:19→21:59)
[2018-07-09 06:31] LABS: BASO # 0.1 K/uL (0.0-0.2); BASO % 0.9 % (0.0-2.0); EOS # 0.5 K/uL (0.0-0.7); EOS % 5.1 % (0.0-4.0); HEMOGLOBIN 9.5 g/dL (11.0-16.0); LYMPH # 1.4 K/uL (1.0-4.3); LYMPH % 13.4 % (20.0-40.0); MEAN CELL VOLUME 86.2 fL (81.0-99.0); MEAN CORPUSCULAR HEMOGLOBIN 28.4 pg (27.0-31.0); MEAN CORPUSCULAR HGB CONC 32.9 g/dL (33.0-37.0); MEAN PLATELET VOLUME 7.3 fL (7.2-11.7); MONO # 0.6 K/uL (0.0-0.8); MONO % 5.8 % (0.0-10.0); NEUT # 7.6 K/uL (1.8-7.0); NEUT % 74.8 % (50.0-75.0); RBC 3.34 Mil/uL (3.80-5.20); RED CELL DISTRIBUTION WIDTH 14.1 % (11.5-14.5); WHITE BLOOD COUNT 10.2 K/uL (4.8-10.8)
[2018-07-09] MEDS: (Novolog) Insulin Aspart, Recombinant 100 u/ml 10 ml vial SC SCH ×4 (07:51→21:59)
--- NOTE | 2018-07-09 10:33 | CP.PCM.PN ---
Subjective - Date & Time of Evaluation Date of Evaluation: 07/09/18 Time of Evaluation: 10:33 - Subjective Subjective: Podiatry progress note - Dr. Mckay 83 year old female patient seen and evaluated 3 days s/p left foot incision and drainage. Family present at bedside. Patient s/p angioplasty, tolerated well. Patient states pain in left foot improving. Denies n/v/f/d/c/sob/arreola/cp. Objective - Vital Signs/Intake and Output Vital Signs (last 24 hours): Temp Pulse Resp BP Pulse Ox 98 F 74 20 164/77 H 95 07/09/18 08:00 07/09/18 08:00 07/09/18 08:00 07/09/18 08:00 07/09/18 08:00 Intake and Output: 07/09/18 07/09/18 06:59 18:59 Intake Total 1500 Balance 1500 - Medications Medications: Current Medications Acetaminophen (Tylenol 325mg Tab) 650 mg PO Q6 PRN PRN Reason: Fever >100.4 F Last Admin: 07/04/18 17:05 Dose: 650 mg Acetaminophen (Tylenol 325mg Tab) 650 mg PO Q6 PRN PRN Reason: Pain, Mild (1-3) Aspirin (Ecotrin) 81 mg PO DAILY [facility] Last Admin: 07/05/18 10:04 Dose: 81 mg Fenofibrate (Tricor) 48 mg PO DAILY [facility] Last Admin: 07/09/18 10:04 Dose: Not Given Glipizide (Glucotrol) 5 mg PO DAILY [facility] Last Admin: 07/05/18 10:04 Dose: 5 mg Heparin Sodium (Porcine) (Heparin) 5,000 units SC Q12 [facility] Last Admin: 07/09/18 10:04 Dose: Not Given Dextrose/Sodium Chloride (Dextrose 5%/0.45% Ns 1000 Ml) 1,000 mls @ 80 mls/hr IV .[id number] [facility] Last Admin: 07/09/18 02:15 Dose: Not Given Sodium Chloride (Sodium Chloride 0.9%) 1,000 mls @ 50 mls/hr IV .Q20H [facility] Last Admin: 07/09/18 01:45 Dose: 50 mls/hr Piperacillin Sod/Tazobactam Sod (Zosyn 2.25 Gm Iv Premix) 2.25 gm in 50 mls @ 100 mls/hr IVPB Q8H [facility]; Protocol Last Admin: 07/09/18 05:19 Dose: 100 mls/hr Insulin Aspart (Novolog) 0 unit SC ACHS [facility]; Protocol Last Admin: 07/09/18 07:51 Dose: Not Given Metformin HCl (Glucophage Xr) 500 mg PO BIDCC [facility] Last Admin: 07/05/18 17:48 Dose: Not Given Oxycodone/Acetaminophen (Percocet 5/325 Mg Tab) 1 tab PO Q6H PRN PRN Reason: Pain, moderate (4-7) Stop: 07/09/18 12:59 Oxycodone/Acetaminophen (Percocet 5/325 Mg Tab) 2 tab PO Q6H PRN PRN Reason: Pain, severe (8-10) Stop: 07/09/18 12:59 Pioglitazone HCl (Actos) 45 mg PO DAILY [facility] Last Admin: 07/05/18 10:14 Dose: 45 mg Rosuvastatin Calcium (Crestor) 10 mg PO HS [facility] Last Admin: 07/08/18 21:17 Dose: 10 mg Sitagliptin Phosphate (Januvia) 25 mg PO DAILY [facility] Last Admin: 07/09/18 10:04 Dose: Not Given Sodium Hypochlorite (Dakins Solution 0.25%) 1 ml TOP QSHIFT [facility] Last Admin: 07/08/18 22:54 Dose: Not Given - Labs Labs: 07/09/18 06:22 07/09/18 06:22 PT 12.3 SECONDS (9.7-12.2) H 07/02/18 17:43 INR 1.1 07/02/18 17:43 APTT 30 SECONDS (21-34) 07/02/18 17:43 - Constitutional Appears: Non-toxic, No Acute Distress - Extremities Exam Additional comments: LLE focused exam VASC: DP and PT pulses weakly palpable; cap refill <3 seconds to digits 2-5, unable to asses hallux; temp gradient warm to warm, hallux cool to touch; edema noted locally at the hallux DERM: Linear surgical incision noted to dorsomedial hallux with sutures in place; wound bed is mixed fibrogranular with serosanguinous drainage present; no purulence present; minimal malodor. Dusky changes noted to hallux with demarcation of edges present, dry/necrosis noted dorsally ORTHO: Pain on palpation hallux, pain upon 1st MPJ and IPJ ROM. Pain on palpation along incision sites. NEURO: gross and protective sensation diminished - Neurological Exam Neurological Exam: Alert, Awake, Oriented x3 - Psychiatric Exam Psychiatric exam: Normal Affect, Normal Mood Assessment and Plan - Assessment and Plan (Free Text) Assessment: 83F POD#3 left foot incision and drainage (DOS: 07/06/18) Plan: Patient seen and evaluated Discussed with attending, Dr. Mckay Left foot MRI - possible osteomyelitis of first digit, not conclusive Left foot X-ray - osteoarthritic changes to first MPJ Intra-op wound cultures (07/06): beta hemolytic strep group B Left foot WCX (07/04): staph aureus MIGUEL ÁNGEL/PVR: No evidence of hemodynamically significant arterial insufficiency CTA: Occlusion of below knee popliteal ., TEST EXAMINER/profunda femoris/SFA unremarkable, patent anterior/posterior tibial a., peroneal a. patent, moderate calficiation distal segment Vascular recs appreciated: -Patient s/p aortofemoral angiogram. selective catherization of left femoral artery. pathway atherectomy of sfa/pop/ tibial peroneal trunk. dcb angioplasty of same. balloon angioplasty of anterior tibial artery. perclose right groin - f/u vascular recs - patient may need partial 1st ray amputation Continue abx per ID Continue local wound care: [facility] Podiatry will continue to follow
[2018-07-09] MEDS ORDERED: Iodixanol 320 MG/ML 200 ML BOTTLE IV ONE (10:44)
[2018-07-09] MEDS ORDERED: Lidocaine 2% MPF (5 ml) Inj ONE (10:44)
[2018-07-09] MEDS ORDERED: Iodixanol 320 MG/ML 100 ML BOTTLE IV ONE (10:44)
[2018-07-09] MEDS ORDERED: Midazolam 2 MG/2 ML VIAL ONE (11:16)
--- NOTE | 2018-07-09 13:34 | PCM.SURG1 ---
Surgeon's Initial Post Op Note - Surgeon's Notes Surgeon: lesley Paint Supervisor: 0 Type of Anesthesia: IV Sedation Anesthesia Administered By: carly Pre-Operative Diagnosis: gangrene/ischemic ulceration Operative Findings: popliteal occlusion. diseased tibial vessels Post-Operative Diagnosis: same Operation Performed: aortofemoral angiogram. selective catherization of left femoral artery. pathway atherectomy of sfa/pop/ tibial peroneal trunk. dcb angioplasty of same. balloon angioplasty of anterior tibial artery. perclose right groin Specimen/Specimens Removed: 0 Estimated Blood Loss: EBL {In ML}: 25 Blood Products Given: N/A Drains Used: No Drains Post-Op Condition: Good Date of Surgery/Procedure: 07/09/18 Time of Surgery/Procedure: 13:34
--- NOTE | 2018-07-09 19:12 | CP.PCM.PN ---
Subjective - Date & Time of Evaluation Date of Evaluation: 07/09/18 Time of Evaluation: 08:00 - Subjective Subjective: s/p angioplasty tolerated well IV rx in progress Objective - Vital Signs/Intake and Output Vital Signs (last 24 hours): Temp Pulse Resp BP Pulse Ox 98.1 F 76 20 154/70 H 97 07/09/18 16:01 07/09/18 16:01 07/09/18 16:01 07/09/18 16:01 07/09/18 16:01 - Medications Medications: Current Medications Acetaminophen (Tylenol 325mg Tab) 650 mg PO Q6 PRN PRN Reason: Fever >100.4 F Last Admin: 07/04/18 17:05 Dose: 650 mg Acetaminophen (Tylenol 325mg Tab) 650 mg PO Q6 PRN PRN Reason: Pain, Mild (1-3) Aspirin (Ecotrin) 81 mg PO DAILY [facility] Last Admin: 07/05/18 10:04 Dose: 81 mg Clopidogrel Bisulfate (Plavix) 75 mg PO DAILY [facility] Fenofibrate (Tricor) 48 mg PO DAILY [facility] Last Admin: 07/09/18 10:04 Dose: Not Given Glipizide (Glucotrol) 5 mg PO DAILY [facility] Last Admin: 07/05/18 10:04 Dose: 5 mg Heparin Sodium (Porcine) (Heparin) 5,000 units SC Q12 [facility] Last Admin: 07/09/18 10:04 Dose: Not Given Piperacillin Sod/Tazobactam Sod (Zosyn 2.25 Gm Iv Premix) 2.25 gm in 50 mls @ 100 mls/hr IVPB Q8H [facility]; Protocol Last Admin: 07/09/18 15:05 Dose: 100 mls/hr Insulin Aspart (Novolog) 0 unit SC ACHS [facility]; Protocol Last Admin: 07/09/18 12:21 Dose: Not Given Metformin HCl (Glucophage Xr) 500 mg PO BIDCC [facility] Last Admin: 07/05/18 17:48 Dose: Not Given Pioglitazone HCl (Actos) 45 mg PO DAILY [facility] Last Admin: 07/05/18 10:14 Dose: 45 mg Rosuvastatin Calcium (Crestor) 10 mg PO HS [facility] Last Admin: 07/08/18 21:17 Dose: 10 mg Sitagliptin Phosphate (Januvia) 25 mg PO DAILY [facility] Last Admin: 02/21/19 10:04 Dose: Not Given - Labs Labs: 07/09/18 06:22 07/09/18 06:22 PT 12.3 SECONDS (9.7-12.2) H 07/02/18 17:43 INR 1.1 07/02/18 17:43 APTT 30 SECONDS (21-34) 07/02/18 17:43 - Constitutional Appears: Non-toxic, Chronically Ill - Head Exam Head Exam: NORMOCEPHALIC - Eye Exam Eye Exam: absent: Scleral icterus - ENT Exam ENT Exam: Mucous Membranes Dry - Neck Exam Neck Exam: absent: Lymphadenopathy - Respiratory Exam Respiratory Exam: Decreased Breath Sounds - Cardiovascular Exam Cardiovascular Exam: REGULAR RHYTHM - GI/Abdominal Exam GI & Abdominal Exam: Distended, Soft - Rectal Exam Rectal Exam: Deferred - Exam Exam: NORMAL INSPECTION - Extremities Exam Extremities Exam: Calf Tenderness, Pedal Edema - Back Exam Back Exam: absent: CVA tenderness (L), CVA tenderness (R) - Neurological Exam Neurological Exam: Alert, Awake Assessment and Plan (1) Cellulitis Status: Acute (2) Arterial, arteriole and capillary disease Status: Acute (3) Diabetes Status: Acute - Assessment and Plan (Free Text) Assessment: s/p angioplasty IV rx renewed
[2018-07-10] MEDS: Piperacill/Tazo 2.25gm in Dex 2.25 GM/50 ML BAG IVPB SCH ×3 (05:27→20:36)
[2018-07-10 07:04] LABS: BASO # 0.1 K/uL (0.0-0.2); BASO % 0.5 % (0.0-2.0); EOS # 0.5 K/uL (0.0-0.7); EOS % 4.2 % (0.0-4.0); HEMOGLOBIN 8.7 g/dL (11.0-16.0); LYMPH # 1.3 K/uL (1.0-4.3); LYMPH % 11.4 % (20.0-40.0); MEAN CELL VOLUME 86.1 fL (81.0-99.0); MEAN CORPUSCULAR HEMOGLOBIN 28.7 pg (27.0-31.0); MEAN CORPUSCULAR HGB CONC 33.3 g/dL (33.0-37.0); MEAN PLATELET VOLUME 7.1 fL (7.2-11.7); MONO # 0.6 K/uL (0.0-0.8); NEUT # 8.9 K/uL (1.8-7.0); NEUT % 78.9 % (50.0-75.0); RBC 3.05 Mil/uL (3.80-5.20); RED CELL DISTRIBUTION WIDTH 14.2 % (11.5-14.5); WHITE BLOOD COUNT 11.3 K/uL (4.8-10.8)
--- NOTE | 2018-07-10 07:46 | CP.PCM.PN ---
Subjective - Date & Time of Evaluation Date of Evaluation: 07/10/18 Time of Evaluation: 07:42 - Subjective Subjective: Vascular Surgery Dr. Hobson Pt S&E @bedside. pt went for angio yesterday. pt tolerated procedure well w/ no complications. No acute events overnight. pt has no complaints this AM. tolerating diet. Objective - Vital Signs/Intake and Output Vital Signs (last 24 hours): Temp Pulse Resp BP Pulse Ox 99.3 F 80 20 149/69 96 07/10/18 00:00 07/10/18 00:00 07/10/18 00:00 07/10/18 00:00 07/10/18 00:00 Intake and Output: 07/10/18 07/10/18 06:59 18:59 Intake Total 1050 Balance 1050 - Medications Medications: Current Medications Acetaminophen (Tylenol 325mg Tab) 650 mg PO Q6 PRN PRN Reason: Fever >100.4 F Last Admin: 07/04/18 17:05 Dose: 650 mg Acetaminophen (Tylenol 325mg Tab) 650 mg PO Q6 PRN PRN Reason: Pain, Mild (1-3) Aspirin (Ecotrin) 81 mg PO DAILY [facility] Last Admin: 07/05/18 10:04 Dose: 81 mg Clopidogrel Bisulfate (Plavix) 75 mg PO DAILY [facility] Fenofibrate (Tricor) 48 mg PO DAILY [facility] Last Admin: 07/09/18 10:04 Dose: Not Given Glipizide (Glucotrol) 5 mg PO DAILY [facility] Last Admin: 07/05/18 10:04 Dose: 5 mg Heparin Sodium (Porcine) (Heparin) 5,000 units SC Q12 [facility] Last Admin: 07/09/18 21:58 Dose: 5,000 units Piperacillin Sod/Tazobactam Sod (Zosyn 2.25 Gm Iv Premix) 2.25 gm in 50 mls @ 100 mls/hr IVPB Q8H [facility]; Protocol Last Admin: 07/10/18 05:27 Dose: 100 mls/hr Insulin Aspart (Novolog) 0 unit SC ACHS [facility]; Protocol Last Admin: 07/09/18 21:59 Dose: Not Given Metformin HCl (Glucophage Xr) 500 mg PO BIDCC [facility] Last Admin: 07/05/18 17:48 Dose: Not Given Pioglitazone HCl (Actos) 45 mg PO DAILY [facility] Last Admin: 07/05/18 10:14 Dose: 45 mg Rosuvastatin Calcium (Crestor) 10 mg PO HS [facility] Last Admin: 07/09/18 21:57 Dose: 10 mg Sitagliptin Phosphate (Januvia) 25 mg PO DAILY [facility] Last Admin: 07/09/18 10:04 Dose: Not Given - Labs Labs: 07/10/18 06:51 07/10/18 06:51 PT 12.3 SECONDS (9.7-12.2) H 07/02/18 17:43 INR 1.1 07/02/18 17:43 APTT 30 SECONDS (21-34) 07/02/18 17:43 - Constitutional Appears: Non-toxic, No Acute Distress - Head Exam Head Exam: NORMAL INSPECTION - Eye Exam Eye Exam: Normal appearance - ENT Exam ENT Exam: Mucous Membranes Moist - Respiratory Exam Respiratory Exam: NORMAL BREATHING PATTERN. absent: Accessory Muscle Use, Respiratory Distress - Cardiovascular Exam Cardiovascular Exam: REGULAR RHYTHM. absent: Bradycardia, Tachycardia - GI/Abdominal Exam GI & Abdominal Exam: Soft. 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 Jazlyn Damon DO PGY3
--- NOTE | 2018-07-10 08:19 | VAS ---
DATE: 07/09/2018 PREOPERATIVE DIAGNOSIS: Gangrene ischemic ulceration, left foot. PROCEDURE CARRIED OUT: Aortofemoral angiogram with selective catheterization of left femoral artery; pathway atherectomy of the left distal superficial popliteal, tibioperoneal trunk arteries; balloon angioplasty of the same using a DCB and a balloon angioplasty of the anterior tibial arteries. SURGEON: Dk Hobson Jr., MD ASSISTANT CONSTRUCTION SUPERINTENDENT: None. ANESTHESIOLOGIST: Dr. Singh. INDICATIONS: The patient is an elderly woman with ischemic ulceration of left foot. OPERATIVE FINDINGS: The aorta, renal arteries, iliac arteries, common femoral arteries, superficial femoral arteries, and profunda femoris artery were widely patent. Detailed pictures below the knee were only taken of the left side. The patient had a complete popliteal occlusion with reconstitution of the distal popliteal just proximal to the take off the anterior tibial. There was at least tibioperoneal trunk with diseased posterior tibial and peroneal down. The anterior tibial has severe disease in the mid portion. The foot reconstituted with visualization, primarily of the dorsalis pedis artery. Subsequent to the performance of diagnostic arteriogram, a stiff-angled Glidewire was advanced over the aortic bifurcation and a 7-Upper Sorbian sheath positioned in the distal portion of the superficial femoral artery. Using road mapping techniques, this lesion was crossed. Heparin was given. A pathway arthrectomy device then atherectomized the popliteal occlusion, and the tibioperoneal trunk. Subsequent to this, the used 4 or 5 mm drug-coated balloons. Then, we turned attention to the anterior tibial artery which showed high-grade stenosis in the mid portion. This was dilated successfully with 2 mm balloon with excellent cosmetic results. Completion pictures showed brisk flow into the foot, primarily to the dorsalis pedis artery. Subsequent to this, the Perclose device was deployed in the right groin. OPERATION CARRIED OUT: The aortofemoral angiogram via right groin with selective catheterization of left femoral artery; pathway atherectomy of the left superficial, femoral, popliteal and tibioperoneal trunk; balloon angioplasty of the anterior tibial artery; Perclose closure of right groin. Dk Hobson Jr., MD cc: Murphy Mckay, MD Blossom Longoria MD MTDMary
[2018-07-10] MEDS: (Novolog) Insulin Aspart, Recombinant 100 u/ml 10 ml vial SC SCH ×4 (08:22→23:00)
--- NOTE | 2018-07-10 10:06 | CP.PCM.PN ---
Subjective - Date & Time of Evaluation Date of Evaluation: 07/10/18 Time of Evaluation: 10:02 - Subjective Subjective: Podiatry progress note - Dr. Mckay 83 year old female patient seen and evaluated 4 days s/p left foot incision and drainage. Family present at bedside. Patient s/p angioplasty, tolerated well. Patient states pain in left foot improving. Denies n/v/f/d/c/sob/arreola/cp. Objective - Vital Signs/Intake and Output Vital Signs (last 24 hours): Temp Pulse Resp BP Pulse Ox 98.4 F 75 18 138/68 94 L 07/10/18 08:19 07/10/18 08:19 07/10/18 08:19 07/10/18 08:19 07/10/18 08:19 Intake and Output: 07/10/18 07/10/18 06:59 18:59 Intake Total 1050 Balance 1050 - Medications Medications: Current Medications Acetaminophen (Tylenol 325mg Tab) 650 mg PO Q6 PRN PRN Reason: Fever >100.4 F Last Admin: 07/04/18 17:05 Dose: 650 mg Acetaminophen (Tylenol 325mg Tab) 650 mg PO Q6 PRN PRN Reason: Pain, Mild (1-3) Aspirin (Ecotrin) 81 mg PO DAILY [facility] Last Admin: 07/05/18 10:04 Dose: 81 mg Clopidogrel Bisulfate (Plavix) 75 mg PO DAILY [facility] Last Admin: 07/10/18 09:40 Dose: 75 mg Fenofibrate (Tricor) 48 mg PO DAILY [facility] Last Admin: 07/10/18 09:40 Dose: 48 mg Glipizide (Glucotrol) 5 mg PO DAILY [facility] Last Admin: 07/05/18 10:04 Dose: 5 mg Heparin Sodium (Porcine) (Heparin) 5,000 units SC Q12 [facility] Last Admin: 07/10/18 09:42 Dose: 5,000 units Piperacillin Sod/Tazobactam Sod (Zosyn 2.25 Gm Iv Premix) 2.25 gm in 50 mls @ 100 mls/hr IVPB Q8H [facility]; Protocol Last Admin: 07/10/18 05:27 Dose: 100 mls/hr Insulin Aspart (Novolog) 0 unit SC ACHS [facility]; Protocol Last Admin: 07/10/18 08:22 Dose: Not Given Metformin HCl (Glucophage Xr) 500 mg PO BIDCC [facility] Last Admin: 07/05/18 17:48 Dose: Not Given Pioglitazone HCl (Actos) 45 mg PO DAILY [facility] Last Admin: 07/05/18 10:14 Dose: 45 mg Rosuvastatin Calcium (Crestor) 10 mg PO HS [facility] Last Admin: 07/09/18 21:57 Dose: 10 mg Sitagliptin Phosphate (Januvia) 25 mg PO DAILY [facility] Last Admin: 07/10/18 09:40 Dose: 25 mg - Labs Labs: 07/10/18 06:51 07/10/18 06:51 PT 12.3 SECONDS (9.7-12.2) H 07/02/18 17:43 INR 1.1 07/02/18 17:43 APTT 30 SECONDS (21-34) 07/02/18 17:43 - Constitutional Appears: Well, Non-toxic, No Acute Distress - Head Exam Head Exam: ATRAUMATIC, NORMAL INSPECTION - ENT Exam ENT Exam: Mucous Membranes Moist - Extremities Exam Additional comments: LLE focused exam VASC: DP and PT pulses weakly palpable; cap refill <3 seconds to digits 2-5, unable to asses hallux; temp gradient warm to warm, hallux cool to touch; edema noted locally at the hallux DERM: Linear surgical incision noted to dorsomedial hallux with sutures in place; wound bed is mixed fibrogranular with serosanguinous drainage present; no purulence present; minimal malodor. Dusky changes noted to hallux with demarcation of edges present, dry/necrosis noted dorsally ORTHO: Pain on palpation hallux, pain upon 1st MPJ and IPJ ROM. Pain on palpation along incision sites. NEURO: gross and protective sensation diminished Assessment and Plan - Assessment and Plan (Free Text) Assessment: 83F POD#4 left foot incision and drainage (DOS: 07/06/18) Plan: Patient seen and evaluated Discussed with attending, Dr. 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 patent, moderate calficiation distal segment Vascular recs appreciated: -Patient s/p aortofemoral angiogram. selective catherization of left femoral artery. pathway atherectomy of sfa/pop/ tibial peroneal trunk. dcb angioplasty of same. balloon angioplasty of anterior tibial artery. perclose right groin - f/u vascular recs - patient may need partial 1st ray amputation Continue abx per ID Continue local wound care: [facility] will continue to follow; close monitoring over the weekend, if toe worsens possible amputation to be scheduled next week.
--- NOTE | 2018-07-10 16:48 | CP.PCM.PN ---
Subjective - Date & Time of Evaluation Date of Evaluation: 07/10/18 Time of Evaluation: 07:00 - Subjective Subjective: rx for OM in progress denies fever pain well controlled Objective - Vital Signs/Intake and Output Vital Signs (last 24 hours): Temp Pulse Resp BP Pulse Ox 99.3 F 79 20 146/60 94 L 07/10/18 16:44 07/10/18 16:44 07/10/18 16:44 07/10/18 16:44 07/10/18 16:44 Intake and Output: 07/10/18 07/10/18 06:59 18:59 Intake Total 1050 300 Balance 1050 300 - Medications Medications: Current Medications Acetaminophen (Tylenol 325mg Tab) 650 mg PO Q6 PRN PRN Reason: Fever >100.4 F Last Admin: 07/04/18 17:05 Dose: 650 mg Acetaminophen (Tylenol 325mg Tab) 650 mg PO Q6 PRN PRN Reason: Pain, Mild (1-3) Aspirin (Ecotrin) 81 mg PO DAILY [facility] Last Admin: 07/05/18 10:04 Dose: 81 mg Clopidogrel Bisulfate (Plavix) 75 mg PO DAILY [facility] Last Admin: 07/10/18 09:40 Dose: 75 mg Fenofibrate (Tricor) 48 mg PO DAILY [facility] Last Admin: 07/10/18 09:40 Dose: 48 mg Glipizide (Glucotrol) 5 mg PO DAILY [facility] Last Admin: 07/05/18 10:04 Dose: 5 mg Piperacillin Sod/Tazobactam Sod (Zosyn 2.25 Gm Iv Premix) 2.25 gm in 50 mls @ 100 mls/hr IVPB Q8H [facility]; Protocol Last Admin: 07/10/18 12:41 Dose: 100 mls/hr Insulin Aspart (Novolog) 0 unit SC ACHS [facility]; Protocol Last Admin: 07/10/18 11:39 Dose: Not Given Metformin HCl (Glucophage Xr) 500 mg PO BIDCC [facility] Last Admin: 07/05/18 17:48 Dose: Not Given Pioglitazone HCl (Actos) 45 mg PO DAILY [facility] Last Admin: 07/05/18 10:14 Dose: 45 mg Rosuvastatin Calcium (Crestor) 10 mg PO HS [facility] Last Admin: 07/09/18 21:57 Dose: 10 mg Sitagliptin Phosphate (Januvia) 25 mg PO DAILY [facility] Last Admin: 07/10/18 09:40 Dose: 25 mg - Labs Labs: 07/10/18 06:51 07/10/18 06:51 PT 12.3 SECONDS (9.7-12.2) H 07/02/18 17:43 INR 1.1 07/02/18 17:43 APTT 30 SECONDS (21-34) 07/02/18 17:43 - Constitutional Appears: Non-toxic, Chronically Ill - Head Exam Head Exam: NORMOCEPHALIC - Eye Exam Eye Exam: absent: Scleral icterus - ENT Exam ENT Exam: Mucous Membranes Dry - Neck Exam Neck Exam: absent: Thyromegaly - Respiratory Exam Respiratory Exam: Decreased Breath Sounds - Cardiovascular Exam Cardiovascular Exam: REGULAR RHYTHM - GI/Abdominal Exam GI & Abdominal Exam: Distended, Soft - Rectal Exam Rectal Exam: Deferred - Exam Exam: NORMAL INSPECTION - Extremities Exam Extremities Exam: Pedal Edema. absent: Calf Tenderness, Normal Capillary Refill Additional comments: ASC: DP and PT pulses weakly palpable; cap refill <3 seconds to digits 2-5, unable to asses hallux; temp gradient warm to warm, hallux cool to touch; edema noted locally at the hallux DERM: Linear surgical incision noted to dorsomedial hallux with sutures in place; wound bed is mixed fibrogranular with serosanguinous drainage present; no purulence present; minimal malodor. Dusky changes noted to hallux with demarcation of edges present, dry/necrosis noted dorsally ORTHO: Pain on palpation hallux, pain upon 1st MPJ and IPJ ROM. Pain on palpation along incision sites. NEURO: gross and protective sensation diminished - Back Exam Back Exam: absent: CVA tenderness (L), CVA tenderness (R) - Neurological Exam Neurological Exam: Alert, Awake, Oriented x3 - Psychiatric Exam Psychiatric exam: Normal Mood - Skin Skin Exam: Dry Assessment and Plan (1) Cellulitis Status: Acute (2) Arterial, arteriole and capillary disease Status: Acute (3) Diabetes Status: Acute - Assessment and Plan (Free Text) Assessment: cont iv rx for OM wound care
--- NOTE | 2018-07-10 18:49 | CP.PCM.PN ---
Subjective - Date & Time of Evaluation Date of Evaluation: 07/10/18 Time of Evaluation: 19:22 - Subjective Subjective: No complaints L. foot dressing pulses DP ++, warm No CP or SOB No fevers or chills Objective - Vital Signs/Intake and Output Vital Signs (last 24 hours): Temp Pulse Resp BP Pulse Ox 99.3 F 79 20 146/60 94 L 07/10/18 16:44 07/10/18 16:44 07/10/18 16:44 07/10/18 16:44 07/10/18 16:44 Intake and Output: 07/10/18 07/10/18 06:59 18:59 Intake Total 1050 300 Balance 1050 300 - Medications Medications: Current Medications Acetaminophen (Tylenol 325mg Tab) 650 mg PO Q6 PRN PRN Reason: Fever >100.4 F Last Admin: 07/04/18 17:05 Dose: 650 mg Acetaminophen (Tylenol 325mg Tab) 650 mg PO Q6 PRN PRN Reason: Pain, Mild (1-3) Aspirin (Ecotrin) 81 mg PO DAILY [facility] Last Admin: 07/05/18 10:04 Dose: 81 mg Clopidogrel Bisulfate (Plavix) 75 mg PO DAILY [facility] Last Admin: 07/10/18 09:40 Dose: 75 mg Fenofibrate (Tricor) 48 mg PO DAILY [facility] Last Admin: 07/10/18 09:40 Dose: 48 mg Glipizide (Glucotrol) 5 mg PO DAILY [facility] Last Admin: 07/05/18 10:04 Dose: 5 mg Piperacillin Sod/Tazobactam Sod (Zosyn 2.25 Gm Iv Premix) 2.25 gm in 50 mls @ 100 mls/hr IVPB Q8H [facility]; Protocol Last Admin: 07/10/18 12:41 Dose: 100 mls/hr Insulin Aspart (Novolog) 0 unit SC ACHS [facility]; Protocol Last Admin: 07/10/18 17:37 Dose: Not Given Metformin HCl (Glucophage Xr) 500 mg PO BIDCC [facility] Last Admin: 07/05/18 17:48 Dose: Not Given Pioglitazone HCl (Actos) 45 mg PO DAILY [facility] Last Admin: 07/05/18 10:14 Dose: 45 mg Rosuvastatin Calcium (Crestor) 10 mg PO HS [facility] Last Admin: 07/09/18 21:57 Dose: 10 mg Sitagliptin Phosphate (Januvia) 25 mg PO DAILY [facility] Last Admin: 07/10/18 09:40 Dose: 25 mg - Labs Labs: 07/10/18 06:51 07/10/18 06:51 PT 12.3 SECONDS (9.7-12.2) H 07/02/18 17:43 INR 1.1 07/02/18 17:43 APTT 30 SECONDS (21-34) 07/02/18 17:43 - Constitutional Appears: No Acute Distress - Head Exam Head Exam: ATRAUMATIC, NORMAL INSPECTION, NORMOCEPHALIC - Eye Exam Eye Exam: EOMI, Normal appearance. absent: Scleral icterus - ENT Exam ENT Exam: Mucous Membranes Moist, Normal Oropharynx - Respiratory Exam Respiratory Exam: Clear to Ausculation Bilateral. absent: Rhonchi, Wheezes - Cardiovascular Exam Cardiovascular Exam: REGULAR RHYTHM, +S1, +S2. absent: Murmur - Extremities Exam Extremities Exam: Full ROM (DP++ L. foot and warm). absent: Calf Tenderness - Neurological Exam Neurological Exam: Alert, Awake, Oriented x3 - Psychiatric Exam Psychiatric exam: Normal Affect, Normal Mood Assessment and Plan - Assessment and Plan (Free Text) Assessment: 83 woman Post op I&D a of L. toe for OM s/p angiogram of lower extremity aortofemoral angiogram. selective catherization of left femoral artery. pat deidra atherectomy of sfa/pop/ tibial peroneal trunk. dcb angioplasty of same. balloon angioplasty of anterior tibial artery. perclose right groin EKG: NSR, LBBB; CXR: No congestion or focal consolidation > No active CAD sx's or CHF sx's > Clinically: no volume overload > BP is acceptable > Cardiovascular auscultation is normal > HTN chronic stable, DM: cont to improve glycemic control > Continue statin and fibrate; agree with ASA 81 and plavix > CKD 3 noted, mild anemia > Diabetes is chronic and stable on actos, metformin > Hyperlipidemia is chronic and stable on high dose crestor and fibrate, consider changing fibrate to Vascepa or zetia as outpatient to reduce risk for stroke or CT in the future.
--- NOTE | 2018-07-10 19:44 | CP.PCM.PN ---
Subjective - Date & Time of Evaluation Date of Evaluation: 07/10/18 Time of Evaluation: 07:30 - Subjective Subjective: clinically same Objective - Vital Signs/Intake and Output Vital Signs (last 24 hours): Temp Pulse Resp BP Pulse Ox 99.3 F 79 20 146/60 94 L 07/10/18 16:44 07/10/18 16:44 07/10/18 16:44 07/10/18 16:44 07/10/18 16:44 Intake and Output: 07/10/18 07/11/18 18:59 06:59 Intake Total 300 Balance 300 - Medications Medications: Current Medications Acetaminophen (Tylenol 325mg Tab) 650 mg PO Q6 PRN PRN Reason: Fever >100.4 F Last Admin: 07/04/18 17:05 Dose: 650 mg Acetaminophen (Tylenol 325mg Tab) 650 mg PO Q6 PRN PRN Reason: Pain, Mild (1-3) Aspirin (Ecotrin) 81 mg PO DAILY [facility] Last Admin: 07/05/18 10:04 Dose: 81 mg Clopidogrel Bisulfate (Plavix) 75 mg PO DAILY [facility] Last Admin: 07/10/18 09:40 Dose: 75 mg Fenofibrate (Tricor) 48 mg PO DAILY [facility] Last Admin: 07/10/18 09:40 Dose: 48 mg Glipizide (Glucotrol) 5 mg PO DAILY [facility] Last Admin: 07/05/18 10:04 Dose: 5 mg Piperacillin Sod/Tazobactam Sod (Zosyn 2.25 Gm Iv Premix) 2.25 gm in 50 mls @ 100 mls/hr IVPB Q8H [facility]; Protocol Last Admin: 07/10/18 12:41 Dose: 100 mls/hr Insulin Aspart (Novolog) 0 unit SC ACHS [facility]; Protocol Last Admin: 07/10/18 17:37 Dose: Not Given Metformin HCl (Glucophage Xr) 500 mg PO BIDCC [facility] Last Admin: 07/05/18 17:48 Dose: Not Given Pioglitazone HCl (Actos) 45 mg PO DAILY [facility] Last Admin: 07/05/18 10:14 Dose: 45 mg Rosuvastatin Calcium (Crestor) 10 mg PO HS [facility] Last Admin: 07/09/18 21:57 Dose: 10 mg Sitagliptin Phosphate (Januvia) 25 mg PO DAILY [facility] Last Admin: 07/10/18 09:40 Dose: 25 mg - Labs Labs: 07/10/18 06:51 07/10/18 06:51 PT 12.3 SECONDS (9.7-12.2) H 07/02/18 17:43 INR 1.1 07/02/18 17:43 APTT 30 SECONDS (21-34) 07/02/18 17:43
[2018-07-11] MEDS: Piperacill/Tazo 2.25gm in Dex 2.25 GM/50 ML BAG IVPB SCH ×3 (05:17→21:09)
[2018-07-11] MEDS: (Novolog) Insulin Aspart, Recombinant 100 u/ml 10 ml vial SC SCH ×4 (07:40→21:11)
--- NOTE | 2018-07-11 11:10 | CP.PCM.PN ---
Subjective - Date & Time of Evaluation Date of Evaluation: 07/11/18 Time of Evaluation: 11:08 - Subjective Subjective: Podiatry progress note - Dr. Mckay 83 year old female patient seen and evaluated 5 days s/p left foot incision and drainage. Daughter at [facility]. Patient s/p angioplasty, tolerated well. Patient states pain in left foot improving. Denies n/v/f/d/c/sob/arreola/cp. Objective - Vital Signs/Intake and Output Vital Signs (last 24 hours): Temp Pulse Resp BP Pulse Ox 98.1 F 76 20 161/71 H 95 07/11/18 07:00 07/11/18 07:00 07/11/18 07:00 07/11/18 07:00 07/11/18 07:00 Intake and Output: 07/11/18 07/11/18 06:59 18:59 Intake Total 410 110 Balance 410 110 - Medications Medications: Current Medications Acetaminophen (Tylenol 325mg Tab) 650 mg PO Q6 PRN PRN Reason: Fever >100.4 F Last Admin: 07/04/18 17:05 Dose: 650 mg Acetaminophen (Tylenol 325mg Tab) 650 mg PO Q6 PRN PRN Reason: Pain, Mild (1-3) Aspirin (Ecotrin) 81 mg PO DAILY [facility] Last Admin: 07/05/18 10:04 Dose: 81 mg Clopidogrel Bisulfate (Plavix) 75 mg PO DAILY [facility] Last Admin: 07/11/18 09:33 Dose: 75 mg Fenofibrate (Tricor) 48 mg PO DAILY [facility] Last Admin: 07/11/18 09:34 Dose: 48 mg Glipizide (Glucotrol) 5 mg PO DAILY [facility] Last Admin: 07/05/18 10:04 Dose: 5 mg Piperacillin Sod/Tazobactam Sod (Zosyn 2.25 Gm Iv Premix) 2.25 gm in 50 mls @ 100 mls/hr IVPB Q8H [facility]; Protocol Last Admin: 07/11/18 05:17 Dose: 100 mls/hr Insulin Aspart (Novolog) 0 unit SC ACHS [facility]; Protocol Last Admin: 07/11/18 07:40 Dose: Not Given Metformin HCl (Glucophage Xr) 500 mg PO BIDCC [facility] Last Admin: 07/05/18 17:48 Dose: Not Given Pioglitazone HCl (Actos) 45 mg PO DAILY [facility] Last Admin: 07/05/18 10:14 Dose: 45 mg Rosuvastatin Calcium (Crestor) 10 mg PO HS [facility] Last Admin: 07/10/18 21:12 Dose: 10 mg Sitagliptin Phosphate (Januvia) 25 mg PO DAILY [facility] Last Admin: 07/11/18 09:33 Dose: 25 mg - Labs Labs: 07/10/18 06:51 07/10/18 06:51 PT 12.3 SECONDS (9.7-12.2) H 07/02/18 17:43 INR 1.1 07/02/18 17:43 APTT 30 SECONDS (21-34) 07/02/18 17:43 - Constitutional Appears: Well, Non-toxic - Head Exam Head Exam: ATRAUMATIC - Eye Exam Eye Exam: Normal appearance - Extremities Exam Additional comments: LLE focused exam VASC: DP and PT pulses weakly palpable; cap refill <3 seconds to digits 2-5, unable to asses hallux; temp gradient warm to warm, hallux cool to touch; edema noted locally at the hallux DERM: Linear surgical incision noted to dorsomedial hallux with sutures in place; wound bed is mixed fibrogranular with serosanguinous drainage present; no purulence present; minimal malodor. Dusky changes noted to hallux with demarcation of edges present, dry/necrosis noted dorsally ORTHO: Pain on palpation hallux, pain upon 1st MPJ and IPJ ROM. Pain on palpation along incision sites. NEURO: gross and protective sensation diminished Assessment and Plan - Assessment and Plan (Free Text) Assessment: 83F POD#5 left foot incision and drainage (DOS: 07/06/18) Plan: Patient seen and evaluated Discussed with attending, Dr. Mckay Left foot MRI - possible osteomyelitis of first digit, not conclusive Left foot X-ray - osteoarthritic changes to first MPJ Intra-op wound cultures (07/06): beta hemolytic strep group B Left foot WCX (07/04): staph aureus MIGUEL ÁNGEL/PVR: No evidence of hemodynamically significant arterial insufficiency CTA: Occlusion of below knee popliteal ., [employer]/profunda femoris/SFA unremarkable, patent anterior/posterior tibial a., peroneal a. patent, moderate calcification distal segment Vascular recs appreciated: -Patient s/p aortofemoral angiogram. selective catherization of left femoral artery. pathway atherectomy of sfa/pop/ tibial peroneal trunk. dcb angioplasty of same. balloon angioplasty of anterior tibial artery. perclose right groin Continue abx per ID Continue local wound care: [facility] plan: possible amputation of partial first ray on Friday 4:30pm; please provide medical clearance.
--- NOTE | 2018-07-11 14:13 | CP.PCM.PN ---
Subjective - Date & Time of Evaluation Date of Evaluation: 07/11/18 Time of Evaluation: 07:30 - Subjective Subjective: clinically same Objective - Vital Signs/Intake and Output Vital Signs (last 24 hours): Temp Pulse Resp BP Pulse Ox 98.1 F 76 20 161/71 H 95 07/11/18 07:00 07/11/18 07:00 07/11/18 07:00 07/11/18 07:00 07/11/18 07:00 Intake and Output: 07/11/18 07/11/18 06:59 18:59 Intake Total 410 110 Balance 410 110 - Medications Medications: Current Medications Acetaminophen (Tylenol 325mg Tab) 650 mg PO Q6 PRN PRN Reason: Fever >100.4 F Last Admin: 07/04/18 17:05 Dose: 650 mg Acetaminophen (Tylenol 325mg Tab) 650 mg PO Q6 PRN PRN Reason: Pain, Mild (1-3) Aspirin (Ecotrin) 81 mg PO DAILY [facility] Last Admin: 07/05/18 10:04 Dose: 81 mg Clopidogrel Bisulfate (Plavix) 75 mg PO DAILY [facility] Last Admin: 07/11/18 09:33 Dose: 75 mg Fenofibrate (Tricor) 48 mg PO DAILY [facility] Last Admin: 07/11/18 09:34 Dose: 48 mg Glipizide (Glucotrol) 5 mg PO DAILY [facility] Last Admin: 07/05/18 10:04 Dose: 5 mg Piperacillin Sod/Tazobactam Sod (Zosyn 2.25 Gm Iv Premix) 2.25 gm in 50 mls @ 100 mls/hr IVPB Q8H [facility]; Protocol Last Admin: 07/11/18 13:06 Dose: 100 mls/hr Insulin Aspart (Novolog) 0 unit SC ACHS [facility]; Protocol Last Admin: 07/11/18 12:18 Dose: Not Given Metformin HCl (Glucophage Xr) 500 mg PO BIDCC [facility] Last Admin: 07/05/18 17:48 Dose: Not Given Pioglitazone HCl (Actos) 45 mg PO DAILY [facility] Last Admin: 07/05/18 10:14 Dose: 45 mg Rosuvastatin Calcium (Crestor) 10 mg PO HS [facility] Last Admin: 07/10/18 21:12 Dose: 10 mg Sitagliptin Phosphate (Januvia) 25 mg PO DAILY [facility] Last Admin: 07/11/18 09:33 Dose: 25 mg - Labs Labs: 07/10/18 06:51 07/10/18 06:51 PT 12.3 SECONDS (9.7-12.2) H 07/02/18 17:43 INR 1.1 07/02/18 17:43 APTT 30 SECONDS (21-34) 07/02/18 17:43 - Constitutional Appears: Well - Head Exam Head Exam: ATRAUMATIC, NORMAL INSPECTION, NORMOCEPHALIC - Eye Exam Eye Exam: EOMI, Normal appearance, PERRL Pupil Exam: NORMAL ACCOMODATION, PERRL - ENT Exam ENT Exam: Mucous Membranes Moist, Normal Exam - Neck Exam Neck Exam: Full ROM, Normal Inspection. absent: Lymphadenopathy - Respiratory Exam Respiratory Exam: Decreased Breath Sounds - Cardiovascular Exam Cardiovascular Exam: REGULAR RHYTHM, +S1, +S2 - GI/Abdominal Exam GI & Abdominal Exam: Soft, Diminished Bowel Sounds - Rectal Exam Rectal Exam: Deferred
[2018-07-12] MEDS: Piperacill/Tazo 2.25gm in Dex 2.25 GM/50 ML BAG IVPB SCH ×3 (05:20→21:22)
[2018-07-12] MEDS: (Novolog) Insulin Aspart, Recombinant 100 u/ml 10 ml vial SC SCH ×4 (07:30→21:24)
[2018-07-12 09:33] VITALS: RESP 20
--- NOTE | 2018-07-12 10:50 | CP.PCM.PN ---
Subjective - Date & Time of Evaluation Date of Evaluation: 07/12/18 Time of Evaluation: 10:47 - Subjective Subjective: Podiatry progress note - Dr. Mckay 83 year old female patient seen and evaluated 6 days s/p left foot incision and drainage. Daughter and son at bedside. Patient s/p angioplasty, tolerated well. Patient states pain in left foot improving. Denies n/v/f/d/c/sob/arreola/cp. Objective - Vital Signs/Intake and Output Vital Signs (last 24 hours): Temp Pulse Resp BP Pulse Ox 98.1 F 73 20 157/68 H 95 07/12/18 07:00 07/12/18 07:00 07/12/18 07:00 07/12/18 07:00 07/12/18 07:00 Intake and Output: 07/12/18 07/12/18 06:59 18:59 Intake Total 700 Balance 700 - Medications Medications: Current Medications Acetaminophen (Tylenol 325mg Tab) 650 mg PO Q6 PRN PRN Reason: Fever >100.4 F Last Admin: 07/04/18 17:05 Dose: 650 mg Acetaminophen (Tylenol 325mg Tab) 650 mg PO Q6 PRN PRN Reason: Pain, Mild (1-3) Aspirin (Ecotrin) 81 mg PO DAILY [facility] Last Admin: 07/05/18 10:04 Dose: 81 mg Clopidogrel Bisulfate (Plavix) 75 mg PO DAILY [facility] Last Admin: 07/12/18 10:00 Dose: 75 mg Fenofibrate (Tricor) 48 mg PO DAILY [facility] Last Admin: 07/12/18 10:00 Dose: 48 mg Glipizide (Glucotrol) 5 mg PO DAILY [facility] Last Admin: 07/05/18 10:04 Dose: 5 mg Piperacillin Sod/Tazobactam Sod (Zosyn 2.25 Gm Iv Premix) 2.25 gm in 50 mls @ 100 mls/hr IVPB Q8H [facility]; Protocol Last Admin: 07/12/18 05:20 Dose: 100 mls/hr Insulin Aspart (Novolog) 0 unit SC ACHS [facility] [place]; Protocol Last Admin: 07/12/18 07:30 Dose: Not Given Metformin HCl (Glucophage Xr) 500 mg PO BIDCC [facility] [place] Last Admin: 07/05/18 17:48 Dose: Not Given Pioglitazone HCl (Actos) 45 mg PO DAILY [facility] [place] Last Admin: 07/05/18 10:14 Dose: 45 mg Rosuvastatin Calcium (Crestor) 10 mg PO HS [facility] [place] Last Admin: 07/11/18 21:09 Dose: 10 mg Sitagliptin Phosphate (Januvia) 25 mg PO DAILY [facility] [place] Last Admin: 07/12/18 10:00 Dose: 25 mg - Labs Labs: 07/10/18 06:51 07/10/18 06:51 PT 12.3 SECONDS (9.7-12.2) H 07/02/18 17:43 INR 1.1 07/02/18 17:43 APTT 30 SECONDS (21-34) 07/02/18 17:43 - Constitutional Appears: Well, Non-toxic - Head Exam Head Exam: ATRAUMATIC, NORMOCEPHALIC - Eye Exam Eye Exam: Normal appearance - Extremities Exam Additional comments: LLE focused exam VASC: DP and PT pulses weakly palpable; cap refill <3 seconds to digits 2-5, unable to asses hallux; temp gradient warm to warm, hallux cool to touch; edema noted locally at the hallux DERM: Linear surgical incision noted to dorsomedial hallux with sutures in place; wound bed is mixed fibrogranular with serosanguinous drainage present; no purulence present; minimal malodor. Dusky changes noted to lateral hallux with demarcation of edges present, medial plantar hallux warm and pink. ORTHO: Pain on palpation hallux, pain upon 1st MPJ and IPJ ROM. Pain on palpatio n along incision sites. NEURO: gross and protective sensation diminished - Neurological Exam Neurological Exam: Alert, Awake, Oriented x3 - Psychiatric Exam Psychiatric exam: Normal Affect Assessment and Plan - Assessment and Plan (Free Text) Assessment: 83F POD#6 left foot incision and drainage (DOS: 07/06/18) Plan: Patient seen and evaluated Discussed with attending, Dr. 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 patent, moderate calcification distal segment Vascular recs appreciated: -Patient s/p aortofemoral angiogram. selective catherization of left femoral artery. pathway atherectomy of sfa/pop/ tibial peroneal trunk. dcb angioplasty of same. balloon angioplasty of anterior tibial artery. perclose right groin Continue abx per ID Continue local wound care: [facility] Podiatry plan: hold off on 1st ray amputation as the toe is starting to warm up. Reevaluate Nanda
--- NOTE | 2018-07-12 14:59 | CP.PCM.PN ---
Subjective - Date & Time of Evaluation Date of Evaluation: 07/12/18 Time of Evaluation: 14:59 - Subjective Subjective: Events reviewed. Objective - Vital Signs/Intake and Output Vital Signs (last 24 hours): Temp Pulse Resp BP Pulse Ox 98.1 F 73 20 157/68 H 95 07/12/18 07:00 07/12/18 07:00 07/12/18 07:00 07/12/18 07:00 07/12/18 07:00 Intake and Output: 07/12/18 07/12/18 06:59 18:59 Intake Total 700 350 Balance 700 350 - Medications Medications: Current Medications Acetaminophen (Tylenol 325mg Tab) 650 mg PO Q6 PRN PRN Reason: Fever >100.4 F Last Admin: 07/04/18 17:05 Dose: 650 mg Acetaminophen (Tylenol 325mg Tab) 650 mg PO Q6 PRN PRN Reason: Pain, Mild (1-3) Aspirin (Ecotrin) 81 mg PO DAILY [facility] Last Admin: 07/05/18 10:04 Dose: 81 mg Clopidogrel Bisulfate (Plavix) 75 mg PO DAILY [facility] Last Admin: 07/12/18 10:00 Dose: 75 mg Fenofibrate (Tricor) 48 mg PO DAILY [facility] Last Admin: 07/12/18 10:00 Dose: 48 mg Glipizide (Glucotrol) 5 mg PO DAILY [facility] Last Admin: 07/05/18 10:04 Dose: 5 mg Piperacillin Sod/Tazobactam Sod (Zosyn 2.25 Gm Iv Premix) 2.25 gm in 50 mls @ 100 mls/hr IVPB Q8H [facility]; Protocol Last Admin: 07/12/18 13:35 Dose: 100 mls/hr Insulin Aspart (Novolog) 0 unit SC ACHS [facility]; Protocol Last Admin: 07/12/18 11:43 Dose: Not Given Metformin HCl (Glucophage Xr) 500 mg PO BIDCC [facility] Last Admin: 07/05/18 17:48 Dose: Not Given Pioglitazone HCl (Actos) 45 mg PO DAILY [facility] Last Admin: 07/05/18 10:14 Dose: 45 mg Rosuvastatin Calcium (Crestor) 10 mg PO HS [facility] Last Admin: 07/11/18 21:09 Dose: 10 mg Sitagliptin Phosphate (Januvia) 25 mg PO DAILY [facility] Last Admin: 07/12/18 10:00 Dose: 25 mg - Labs Labs: 07/10/18 06:51 07/10/18 06:51 PT 12.3 SECONDS (9.7-12.2) H 07/02/18 17:43 INR 1.1 07/02/18 17:43 APTT 30 SECONDS (21-34) 07/02/18 17:43 Assessment and Plan - Assessment and Plan (Free Text) Assessment: - Constitutional Appears: No Acute Distress - Head Exam Head Exam: ATRAUMATIC, NORMAL INSPECTION, NORMOCEPHALIC - Eye Exam Eye Exam: EOMI, Normal appearance. absent: Scleral icterus - ENT Exam ENT Exam: Mucous Membranes Moist, Normal Oropharynx - Respiratory Exam Respiratory Exam: Clear to Ausculation Bilateral. absent: Rhonchi, Wheezes - Cardiovascular Exam Cardiovascular Exam: REGULAR RHYTHM, +S1, +S2. absent: Murmur - Extremities Exam Extremities Exam: Full ROM (DP++ L. foot and warm). absent: Calf Tenderness - Neurological Exam Neurological Exam: Alert, Awake, Oriented x3 - Psychiatric Exam Psychiatric exam: Normal Affect, Normal Mood Assessment and Plan - Assessment and Plan (Free Text) Assessment: 83 woman Post op I&D a of L. toe for OM s/p angiogram of lower extremity aortofemoral angiogram. selective catherization of left femoral artery. pathway atherectomy of sfa/pop/ tibial peroneal trunk. dcb angioplasty of same. balloon angioplasty of anterior tibial artery. perclose right groin EKG: NSR, LBBB; CXR: No congestion or focal consolidation > HTN chronic stable, DM: cont to improve glycemic control > Continue statin and fibrate; agree with ASA 81 and plavix > CKD 3 noted, mild anemia > Diabetes is chronic and stable on actos, metformin > Hyperlipidemia is chronic and stable on high dose crestor and fibrate, consider changing fibrate to Vascepa or zetia as outpatient to reduce risk for stroke or NC in the future.
--- NOTE | 2018-07-12 15:16 | CP.PCM.PN ---
Subjective - Date & Time of Evaluation Date of Evaluation: 07/12/18 Time of Evaluation: 07:30 - Subjective Subjective: clinically same Objective - Vital Signs/Intake and Output Vital Signs (last 24 hours): Temp Pulse Resp BP Pulse Ox 98.1 F 73 20 157/68 H 95 07/12/18 07:00 07/12/18 07:00 07/12/18 07:00 07/12/18 07:00 07/12/18 07:00 Intake and Output: 07/12/18 07/12/18 06:59 18:59 Intake Total 700 350 Balance 700 350 - Medications Medications: Current Medications Acetaminophen (Tylenol 325mg Tab) 650 mg PO Q6 PRN PRN Reason: Fever >100.4 F Last Admin: 07/04/18 17:05 Dose: 650 mg Acetaminophen (Tylenol 325mg Tab) 650 mg PO Q6 PRN PRN Reason: Pain, Mild (1-3) Aspirin (Ecotrin) 81 mg PO DAILY [facility] Last Admin: 07/05/18 10:04 Dose: 81 mg Clopidogrel Bisulfate (Plavix) 75 mg PO DAILY [facility] Last Admin: 07/12/18 10:00 Dose: 75 mg Fenofibrate (Tricor) 48 mg PO DAILY [facility] Last Admin: 07/12/18 10:00 Dose: 48 mg Glipizide (Glucotrol) 5 mg PO DAILY [facility] Last Admin: 07/05/18 10:04 Dose: 5 mg Piperacillin Sod/Tazobactam Sod (Zosyn 2.25 Gm Iv Premix) 2.25 gm in 50 mls @ 100 mls/hr IVPB Q8H [facility]; Protocol Last Admin: 07/12/18 13:35 Dose: 100 mls/hr Insulin Aspart (Novolog) 0 unit SC ACHS [facility]; Protocol Last Admin: 07/12/18 11:43 Dose: Not Given Metformin HCl (Glucophage Xr) 500 mg PO BIDCC [facility] Last Admin: 07/05/18 17:48 Dose: Not Given Pioglitazone HCl (Actos) 45 mg PO DAILY [facility] Last Admin: 07/05/18 10:14 Dose: 45 mg Rosuvastatin Calcium (Crestor) 10 mg PO HS [facility] Last Admin: 07/11/18 21:09 Dose: 10 mg Sitagliptin Phosphate (Januvia) 25 mg PO DAILY [facility] Last Admin: 07/12/18 10:00 Dose: 25 mg - Labs Labs: 07/10/18 06:51 07/10/18 06:51 PT 12.3 SECONDS (9.7-12.2) H 07/02/18 17:43 INR 1.1 07/02/18 17:43 APTT 30 SECONDS (21-34) 07/02/18 17:43
--- NOTE | 2018-07-12 16:12 | CP.PCM.PN ---
Subjective - Date & Time of Evaluation Date of Evaluation: 07/12/18 Time of Evaluation: 16:09 - Subjective Subjective: Pt seen at bedside for f/u left hallux gangrene. Toe and forefoot show more warm to touch with palpable pulse. Toe appears less dusky than yesterday. Discussed case with patient and family at bedside who want to see if the toe will improve with time and IV abx. Will postpone partial 1st ray amp for now and reassess during the week. Cont with local wound care and IV abx for now. Objective - Vital Signs/Intake and Output Vital Signs (last 24 hours): Temp Pulse Resp BP Pulse Ox 98.1 F 73 20 157/68 H 95 07/12/18 07:00 07/12/18 07:00 07/12/18 07:00 07/12/18 07:00 07/12/18 07:00 Intake and Output: 07/12/18 07/12/18 06:59 18:59 Intake Total 700 350 Balance 700 350 - Medications Medications: Current Medications Acetaminophen (Tylenol 325mg Tab) 650 mg PO Q6 PRN PRN Reason: Fever >100.4 F Last Admin: 07/04/18 17:05 Dose: 650 mg Acetaminophen (Tylenol 325mg Tab) 650 mg PO Q6 PRN PRN Reason: Pain, Mild (1-3) Aspirin (Ecotrin) 81 mg PO DAILY [facility] Last Admin: 07/05/18 10:04 Dose: 81 mg Clopidogrel Bisulfate (Plavix) 75 mg PO DAILY [facility] Last Admin: 07/12/18 10:00 Dose: 75 mg Fenofibrate (Tricor) 48 mg PO DAILY [facility] Last Admin: 07/12/18 10:00 Dose: 48 mg Glipizide (Glucotrol) 5 mg PO DAILY [facility] Last Admin: 07/05/18 10:04 Dose: 5 mg Piperacillin Sod/Tazobactam Sod (Zosyn 2.25 Gm Iv Premix) 2.25 gm in 50 mls @ 100 mls/hr IVPB Q8H [facility]; Protocol Last Admin: 07/12/18 13:35 Dose: 100 mls/hr Insulin Aspart (Novolog) 0 unit SC ACHS [facility]; Protocol Last Admin: 07/12/18 11:43 Dose: Not Given Metformin HCl (Glucophage Xr) 500 mg PO BIDCC [facility] Last Admin: 07/05/18 17:48 Dose: Not Given Pioglitazone HCl (Actos) 45 mg PO DAILY [facility] Last Admin: 07/05/18 10:14 Dose: 45 mg Rosuvastatin Calcium (Crestor) 10 mg PO HS [facility] Last Admin: 07/11/18 21:09 Dose: 10 mg Sitagliptin Phosphate (Januvia) 25 mg PO DAILY [facility] Last Admin: 07/12/18 10:00 Dose: 25 mg - Labs Labs: 07/10/18 06:51 07/10/18 06:51 PT 12.3 SECONDS (9.7-12.2) H 07/02/18 17:43 INR 1.1 07/02/18 17:43 APTT 30 SECONDS (21-34) 07/02/18 17:43
--- NOTE | 2018-07-12 17:17 | CP.PCM.PN ---
Subjective - Date & Time of Evaluation Date of Evaluation: 07/12/18 Time of Evaluation: 07:00 - Subjective Subjective: discussed on rounds amputation on hold cont iv rx and wound care Objective - Vital Signs/Intake and Output Vital Signs (last 24 hours): Temp Pulse Resp BP Pulse Ox 98.0 F 73 20 144/71 95 07/12/18 16:00 07/12/18 16:00 07/12/18 16:00 07/12/18 16:00 07/12/18 16:00 Intake and Output: 07/12/18 07/12/18 06:59 18:59 Intake Total 700 350 Balance 700 350 - Medications Medications: Current Medications Acetaminophen (Tylenol 325mg Tab) 650 mg PO Q6 PRN PRN Reason: Fever >100.4 F Last Admin: 07/04/18 17:05 Dose: 650 mg Acetaminophen (Tylenol 325mg Tab) 650 mg PO Q6 PRN PRN Reason: Pain, Mild (1-3) Aspirin (Ecotrin) 81 mg PO DAILY [facility] Last Admin: 07/05/18 10:04 Dose: 81 mg Clopidogrel Bisulfate (Plavix) 75 mg PO DAILY [facility] Last Admin: 07/12/18 10:00 Dose: 75 mg Fenofibrate (Tricor) 48 mg PO DAILY [facility] Last Admin: 07/12/18 10:00 Dose: 48 mg Glipizide (Glucotrol) 5 mg PO DAILY [facility] Last Admin: 07/05/18 10:04 Dose: 5 mg Piperacillin Sod/Tazobactam Sod (Zosyn 2.25 Gm Iv Premix) 2.25 gm in 50 mls @ 100 mls/hr IVPB Q8H [facility]; Protocol Last Admin: 07/12/18 13:35 Dose: 100 mls/hr Insulin Aspart (Novolog) 0 unit SC ACHS [facility]; Protocol Last Admin: 07/12/18 11:43 Dose: Not Given Metformin HCl (Glucophage Xr) 500 mg PO BIDCC [facility] Last Admin: 07/05/18 17:48 Dose: Not Given Pioglitazone HCl (Actos) 45 mg PO DAILY [facility] Last Admin: 07/05/18 10:14 Dose: 45 mg Rosuvastatin Calcium (Crestor) 10 mg PO HS [facility] Last Admin: 07/11/18 21:09 Dose: 10 mg Sitagliptin Phosphate (Januvia) 25 mg PO DAILY [facility] Last Admin: 07/12/18 10:00 Dose: 25 mg - Labs Labs: 07/10/18 06:51 07/10/18 06:51 PT 12.3 SECONDS (9.7-12.2) H 07/02/18 17:43 INR 1.1 07/02/18 17:43 APTT 30 SECONDS (21-34) 07/02/18 17:43 - Constitutional Appears: Chronically Ill - Head Exam Head Exam: NORMOCEPHALIC - Eye Exam Eye Exam: absent: Scleral icterus - ENT Exam ENT Exam: Mucous Membranes Dry - Neck Exam Neck Exam: absent: Lymphadenopathy - Respiratory Exam Respiratory Exam: Decreased Breath Sounds - Cardiovascular Exam Cardiovascular Exam: REGULAR RHYTHM - GI/Abdominal Exam GI & Abdominal Exam: Distended - Rectal Exam Rectal Exam: Deferred - Exam Exam: NORMAL INSPECTION - Extremities Exam Extremities Exam: Pedal Edema - Back Exam Back Exam: absent: CVA tenderness (L), CVA tenderness (R) Assessment and Plan (1) Cellulitis Status: Acute (2) Arterial, arteriole and capillary disease Status: Acute (3) Diabetes Status: Acute - Assessment and Plan (Free Text) Assessment: cont rx for OM s/p angioplasty cont wound care
[2018-07-13] MEDS: Piperacill/Tazo 2.25gm in Dex 2.25 GM/50 ML BAG IVPB SCH ×2 (05:34→13:59)
[2018-07-13 07:43] VITALS: O2SAT 96
[2018-07-13] MEDS: (Novolog) Insulin Aspart, Recombinant 100 u/ml 10 ml vial SC SCH ×3 (08:30→17:01)
--- NOTE | 2018-07-13 11:42 | CP.PCM.PN ---
Subjective - Date & Time of Evaluation Date of Evaluation: 07/13/18 Time of Evaluation: 11:42 - Subjective Subjective: Podiatry progress note - Dr. Mckay 83 year old female patient seen and evaluated 7 days s/p left foot incision and drainage. Patient reports pain in left foot improving, feeling much better s/p angio. Denies n/v/f/d/c/sob/arreola/cp. Objective - Vital Signs/Intake and Output Vital Signs (last 24 hours): Temp Pulse Resp BP Pulse Ox 98.4 F 74 20 152/75 H 96 07/13/18 07:40 07/13/18 07:40 07/13/18 07:40 07/13/18 07:40 07/13/18 07:40 Intake and Output: 07/13/18 07/13/18 06:59 18:59 Intake Total 700 Balance 700 - Medications Medications: Current Medications Acetaminophen (Tylenol 325mg Tab) 650 mg PO Q6 PRN PRN Reason: Fever >100.4 F Last Admin: 07/04/18 17:05 Dose: 650 mg Acetaminophen (Tylenol 325mg Tab) 650 mg PO Q6 PRN PRN Reason: Pain, Mild (1-3) Aspirin (Ecotrin) 81 mg PO DAILY [facility] Last Admin: 07/05/18 10:04 Dose: 81 mg Clopidogrel Bisulfate (Plavix) 75 mg PO DAILY [facility] Last Admin: 07/13/18 10:24 Dose: 75 mg Fenofibrate (Tricor) 48 mg PO DAILY [facility] Last Admin: 07/13/18 10:25 Dose: 48 mg Glipizide (Glucotrol) 5 mg PO DAILY [facility] Last Admin: 07/05/18 10:04 Dose: 5 mg Piperacillin Sod/Tazobactam Sod (Zosyn 2.25 Gm Iv Premix) 2.25 gm in 50 mls @ 100 mls/hr IVPB Q8H [facility]; Protocol Last Admin: 07/13/18 05:34 Dose: 100 mls/hr Insulin Aspart (Novolog) 0 unit SC ACHS [facility]; Protocol Last Admin: 07/13/18 08:30 Dose: 1 u Metformin HCl (Glucophage Xr) 500 mg PO BIDCC [facility] Last Admin: 07/05/18 17:48 Dose: Not Given Pioglitazone HCl (Actos) 45 mg PO DAILY [facility] Last Admin: 07/05/18 10:14 Dose: 45 mg Rosuvastatin Calcium (Crestor) 10 mg PO HS [facility] Last Admin: 07/12/18 21:22 Dose: 10 mg Sitagliptin Phosphate (Januvia) 25 mg PO DAILY [facility] Last Admin: 07/13/18 10:24 Dose: 25 mg - Labs Labs: 07/10/18 06:51 07/10/18 06:51 PT 12.3 SECONDS (9.7-12.2) H 07/02/18 17:43 INR 1.1 07/02/18 17:43 APTT 30 SECONDS (21-34) 07/02/18 17:43 - Constitutional Appears: Non-toxic, No Acute Distress - Extremities Exam Additional comments: LLE focused exam VASC: DP and PT pulses weakly palpable; cap refill <3 seconds to digits 2-5, CFT improving at distalmedial aspect of hallux; temp gradient warm to warm, hallux warmer; edema noted locally at the hallux DERM: Linear surgical incision noted to dorsomedial hallux with sutures in place; wound bed is mixed fibrogranular with serosanguinous drainage present; no purulence present; minimal malodor. Dusky changes noted to lateral hallux with demarcation of edges present- demarcating, medial plantar hallux warm and pink ORTHO: Pain on palpation hallux, pain upon 1st MPJ and IPJ ROM. Pain on palpation along incision sites. NEURO: gross and protective sensation diminished - Neurological Exam Neurological Exam: Alert, Awake, Oriented x3 - Psychiatric Exam Psychiatric exam: Normal Affect, Normal Mood Assessment and Plan - Assessment and Plan (Free Text) Assessment: 83F POD#7 left foot incision and drainage (DOS: 07/06/18) Plan: Patient seen and evaluated Discussed with attending, Dr. 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 patent, moderate calcification distal segment Vascular recs appreciated: -Patient s/p aortofemoral angiogram. selective catherization of left femoral artery. pathway atherectomy of sfa/pop/ tibial peroneal trunk. dcb angioplasty of same. balloon angioplasty of anterior tibial artery. perclose right groin Continue abx per ID- will need shelter abx for OM Continue local wound care: [facility], [facility] Podiatry plan: hold off on 1st ray amputation as the toe is starting to warm up; conservative care for now Recommend DC to [facility] w/PICC for continued abx Stable for dc per podiatry, follow up with Dr. Mckay in office within 1 week of discharge
[2018-07-13 16:10] VITALS: BP 170/74; PULSE 75; TEMP 97.8
--- NOTE | 2018-07-13 17:05 | CP.PCM.PN ---
Subjective - Date & Time of Evaluation Date of Evaluation: 07/13/18 Time of Evaluation: 17:04 - Subjective Subjective: No cardiac complaints Objective - Vital Signs/Intake and Output Vital Signs (last 24 hours): Temp Pulse Resp BP Pulse Ox 97.8 F 75 20 170/74 H 96 07/13/18 16:05 07/13/18 16:05 07/13/18 16:05 07/13/18 16:05 07/13/18 16:05 Intake and Output: 07/13/18 07/13/18 06:59 18:59 Intake Total 700 530 Balance 700 530 - Medications Medications: Current Medications Acetaminophen (Tylenol 325mg Tab) 650 mg PO Q6 PRN PRN Reason: Fever >100.4 F Last Admin: 07/04/18 17:05 Dose: 650 mg Acetaminophen (Tylenol 325mg Tab) 650 mg PO Q6 PRN PRN Reason: Pain, Mild (1-3) Aspirin (Ecotrin) 81 mg PO DAILY [facility] Last Admin: 07/05/18 10:04 Dose: 81 mg Clopidogrel Bisulfate (Plavix) 75 mg PO DAILY [facility] Last Admin: 07/13/18 10:24 Dose: 75 mg Fenofibrate (Tricor) 48 mg PO DAILY [facility] Last Admin: 07/13/18 10:25 Dose: 48 mg Glipizide (Glucotrol) 5 mg PO DAILY [facility] Last Admin: 07/05/18 10:04 Dose: 5 mg Piperacillin Sod/Tazobactam Sod (Zosyn 2.25 Gm Iv Premix) 2.25 gm in 50 mls @ 100 mls/hr IVPB Q8H [facility]; Protocol Last Admin: 07/13/18 13:59 Dose: 100 mls/hr Insulin Aspart (Novolog) 0 unit SC ACHS [facility]; Protocol Last Admin: 07/13/18 17:01 Dose: 1 u Metformin HCl (Glucophage Xr) 500 mg PO BIDCC [facility] Last Admin: 07/05/18 17:48 Dose: Not Given Pioglitazone HCl (Actos) 45 mg PO DAILY [facility] Last Admin: 07/05/18 10:14 Dose: 45 mg Rosuvastatin Calcium (Crestor) 10 mg PO HS [facility] Last Admin: 07/12/18 21:22 Dose: 10 mg Sitagliptin Phosphate (Januvia) 25 mg PO DAILY [facility] Last Admin: 07/13/18 10:24 Dose: 25 mg - Labs Labs: 07/10/18 06:51 07/10/18 06:51 PT 12.3 SECONDS (9.7-12.2) H 07/02/18 17:43 INR 1.1 07/02/18 17:43 APTT 30 SECONDS (21-34) 07/02/18 17:43 - Constitutional Appears: No Acute Distress - Head Exam Head Exam: ATRAUMATIC, NORMAL INSPECTION, NORMOCEPHALIC - Eye Exam Eye Exam: absent: Scleral icterus - ENT Exam ENT Exam: Mucous Membranes Moist, Normal Oropharynx - Neck Exam Neck Exam: Full ROM - Respiratory Exam Respiratory Exam: Clear to Ausculation Bilateral. absent: Rales, Rhonchi - Cardiovascular Exam Cardiovascular Exam: REGULAR RHYTHM, +S1, +S2. absent: Murmur - Extremities Exam Extremities Exam: absent: Calf Tenderness, Pedal Edema - Neurological Exam Neurological Exam: Alert, Awake, Oriented x3 Assessment and Plan - Assessment and Plan (Free Text) Assessment: 83 woman Post op I&D a of L. toe for OM s/p angiogram of lower extremity aortofemoral angiogram. selective catherization of left femoral artery. pathway atherectomy of sfa/pop/ tibial peroneal trunk. dcb angioplasty of same. balloon angioplasty of anterior tibial artery. perclose right groin - CLINICALLY IMPROVED RAY AMPUTATION DEFERRED: ON HOLD AWAITING IF CLINICALLY IMPROVING. EKG: NSR, LBBB; CXR: No congestion or focal consolidation > HTN chronic stable, DM: cont to improve glycemic control > Continue statin and fibrate; agree with ASA 81 and plavix > CKD 3 noted, mild anemia > Diabetes is chronic and stable on actos, metformin > Hyperlipidemia is chronic and stable on high dose crestor and fibrate, consider changing fibrate to Vascepa or zetia as outpatient to reduce risk for stroke or AL in the future.
--- NOTE | 2018-07-13 18:43 | CP.PCM.PN ---
Subjective - Date & Time of Evaluation Date of Evaluation: 07/13/18 Time of Evaluation: 07:30 - Subjective Subjective: clinically same Objective - Vital Signs/Intake and Output Vital Signs (last 24 hours): Temp Pulse Resp BP Pulse Ox 97.8 F 75 20 170/74 H 96 07/13/18 16:05 07/13/18 16:05 07/13/18 16:05 07/13/18 16:05 07/13/18 16:05 Intake and Output: 07/13/18 07/13/18 06:59 18:59 Intake Total 700 530 Balance 700 530 - Medications Medications: Current Medications Acetaminophen (Tylenol 325mg Tab) 650 mg PO Q6 PRN PRN Reason: Fever >100.4 F Last Admin: 07/04/18 17:05 Dose: 650 mg Acetaminophen (Tylenol 325mg Tab) 650 mg PO Q6 PRN PRN Reason: Pain, Mild (1-3) Aspirin (Ecotrin) 81 mg PO DAILY [facility] Last Admin: 07/05/18 10:04 Dose: 81 mg Clopidogrel Bisulfate (Plavix) 75 mg PO DAILY [facility] Last Admin: 07/13/18 10:24 Dose: 75 mg Fenofibrate (Tricor) 48 mg PO DAILY [facility] Last Admin: 07/13/18 10:25 Dose: 48 mg Glipizide (Glucotrol) 5 mg PO DAILY [facility] Last Admin: 07/05/18 10:04 Dose: 5 mg Piperacillin Sod/Tazobactam Sod (Zosyn 2.25 Gm Iv Premix) 2.25 gm in 50 mls @ 100 mls/hr IVPB Q8H [facility]; Protocol Last Admin: 07/13/18 13:59 Dose: 100 mls/hr Insulin Aspart (Novolog) 0 unit SC ACHS [facility]; Protocol Last Admin: 07/13/18 17:01 Dose: 1 u Metformin HCl (Glucophage Xr) 500 mg PO BIDCC [facility] Last Admin: 07/05/18 17:48 Dose: Not Given Pioglitazone HCl (Actos) 45 mg PO DAILY [facility] Last Admin: 07/05/18 10:14 Dose: 45 mg Rosuvastatin Calcium (Crestor) 10 mg PO HS [facility] Last Admin: 07/12/18 21:22 Dose: 10 mg Sitagliptin Phosphate (Januvia) 25 mg PO DAILY [facility] Last Admin: 07/13/18 10:24 Dose: 25 mg - Labs Labs: 07/10/18 06:51 07/10/18 06:51 PT 12.3 SECONDS (9.7-12.2) H 07/02/18 17:43 INR 1.1 07/02/18 17:43 APTT 30 SECONDS (21-34) 07/02/18 17:43
== END 2018-07-13 18:44 | DRG 271 ==
LOC: C.ER 16:29 → C.3T 18:48
PROVIDERS: ADMIT Internal Medicine Nephrology; ATTEND Internal Medicine Nephrology
PROC: 0H9NXZX Drainage of Left Foot Skin, External Approach, Diagnostic (ICD-10-PCS; principal; 2018-07-04)
PROC: 04CN3ZZ Extirpation of Matter from Left Popliteal Artery, Percutaneous Approach (ICD-10-PCS; 2018-07-09)
PROC: 047Q3ZZ Dilation of Left Anterior Tibial Artery, Percutaneous Approach (ICD-10-PCS; 2018-07-09)
PROC: 04CS3ZZ Extirpation of Matter from Left Posterior Tibial Artery, Percutaneous Approach (ICD-10-PCS; 2018-07-09)
PROC: 04CU3ZZ Extirpation of Matter from Left Peroneal Artery, Percutaneous Approach (ICD-10-PCS; 2018-07-09)
PROC: 047Q3Z1 Dilation of Left Anterior Tibial Artery using Drug-Coated Balloon, Percutaneous Approach (ICD-10-PCS; 2018-07-09)
PROC: 047N3Z1 Dilation of Left Popliteal Artery using Drug-Coated Balloon, Percutaneous Approach (ICD-10-PCS; 2018-07-09)
PROC: 047U3Z1 Dilation of Left Peroneal Artery using Drug-Coated Balloon, Percutaneous Approach (ICD-10-PCS; 2018-07-09)
PROC: B40GYZZ Plain Radiography of Left Lower Extremity Arteries using Other Contrast (ICD-10-PCS; 2018-07-09)
DX: E10.52 Type 1 diabetes mellitus with diabetic peripheral angiopathy with gangrene (principal); I70.92 Chronic total occlusion of artery of the extremities; M86.9 Osteomyelitis, unspecified; L02.612 Cutaneous abscess of left foot; L97.529 Non-pressure chronic ulcer of other part of left foot with unspecified severity; L03.032 Cellulitis of left toe; E10.621 Type 1 diabetes mellitus with foot ulcer; E10.69 Type 1 diabetes mellitus with other specified complication; I12.9 Hypertensive chronic kidney disease with stage 1 through stage 4 chronic kidney disease, or unspecified chronic kidney disease; E10.22 Type 1 diabetes mellitus with diabetic chronic kidney disease; N18.3 Chronic kidney disease, stage 3 (moderate); D64.9 Anemia, unspecified; I44.7 Left bundle-branch block, unspecified; E78.00 Pure hypercholesterolemia, unspecified; M19.90 Unspecified osteoarthritis, unspecified site; M81.0 Age-related osteoporosis without current pathological fracture; Z89.411 Acquired absence of right great toe; Z79.4 Long term (current) use of insulin; Z90.49 Acquired absence of other specified parts of digestive tract

== ENCOUNTER 2018-09-08 10:09 | Inpatient (IN) | payer MEDICARE, OTHER ==
[2018-09-08] MEDS ORDERED: Vancomycin 1 GM 1 GM/250 ML BAG IV STA (10:45)
[2018-09-08] MEDS ORDERED: Cefepime 1 GM in Sodium Chloride 0.9% 50 ML IVPB STA (10:46)
[2018-09-08 10:48] LABS: BASO # 0.1 K/uL (0.0-0.2); EOS # 0.9 K/uL (0.0-0.7); EOS % 8.3 % (0.0-4.0); LYMPH # 2.3 K/uL (1.0-4.3); LYMPH % 22.3 % (20.0-40.0); MEAN CORPUSCULAR HEMOGLOBIN 28.6 pg (27.0-31.0); MEAN CORPUSCULAR HGB CONC 33.3 g/dL (33.0-37.0); MEAN PLATELET VOLUME 7.3 fL (7.2-11.7); MONO # 0.4 K/uL (0.0-0.8); MONO % 3.4 % (0.0-10.0); NEUT # 6.8 K/uL (1.8-7.0); RBC 3.84 Mil/uL (3.80-5.20); RED CELL DISTRIBUTION WIDTH 16.1 % (11.5-14.5); WHITE BLOOD COUNT 10.5 K/uL (4.8-10.8)
--- NOTE | 2018-09-08 10:49 | C.PDOC ---
History Of Present Illness 83 y/o female with a PMHx of DM, HTN, HLD, and prior toe amputation on the right, presents to the ED (referred by director global sales Dr. Lee Ann Mckay) for evaluation of left great toe gangrene. As per the family, the wound has been present since at least June when the patient came into their care, however it may have pre- dated that. Patient has history of recent admission at [facility] and was in subacute rehab for IV antibiotics. Family notes no improvement in the wound despite antibiotic treatment. They deny fever, chest pain, SOB, trauma, or other associated complaints. PMD- Dr. Avtar Ramirez Time Seen by Provider: 09/08/18 10:10 Chief Complaint (Nursing): Lower Extremity Problem/Injury History Per: Family History/Exam Limitations: no limitations Onset/Duration Of Symptoms: Days Current Symptoms Are (Timing): Still Present Severity: Moderate Past Medical History Reviewed: Historical Data, Nursing Documentation, Vital Signs Vital Signs: Last Vital Signs Temp 98.8 F 09/08/18 10:12 Pulse 95 H 09/08/18 10:12 Resp 20 09/08/18 10:12 BP 145/82 09/08/18 10:12 Pulse Ox 98 09/08/18 10:12 - Medical History PMH: Arthritis, Diabetes (type II), Gall Bladder Disease, HTN, Hypercholesterolemia, Hyperlipidemia, Osteoporosis Surgical History: Cholecystectomy - [facility] (07/02/18) (07/02/18) CENTRAL VENOUS CATHETER PLACEMENT WITH GUIDANCE (11/06/13) CLOSED FX REDUCT HUMERUS (03/17/14) DILATION OF L POPL ART USING DRUG BLLN, PERC APPROACH (07/02/18) DILATION OF LEFT ANTERIOR TIBIAL ARTERY, PERC APPROACH (07/02/18) DRAINAGE OF LEFT FOOT SKIN, EXTERNAL APPROACH, DIAGNOSTIC (07/02/18) EXTIRPATION OF MATTER FROM L PERONEAL ART, PERC APPROACH (07/02/18) EXTIRPATION OF MATTER FROM L POPL ART, PERC APPROACH (07/02/18) EXTIRPATION OF MATTER FROM L POST TIB ART, PERC APPROACH (07/02/18) PLAIN RADIOGRAPHY OF L LOW EXTREM ART USING OTH CONTRAST (07/02/18) TOE AMPUTATION (11/06/13) Family History: States: No Known Family Hx - Social History Hx Tobacco Use: No Hx Alcohol Use: No Hx Substance Use: No - Immunization History Hx Tetanus Toxoid Vaccination: No Hx Influenza Vaccination: No Hx Pneumococcal Vaccination: No Review Of Systems Constitutional: Negative for: Fever, Chills Cardiovascular: Negative for: Chest Pain Respiratory: Negative for: Cough, Shortness of Breath Gastrointestinal: Negative for: Vomiting, Diarrhea Musculoskeletal: Positive for: Other (Left great toe discoloration/wound) Neurological: Negative for: Headache, Dizziness Physical Exam - Physical Exam Appears: Well, Non-toxic, No Acute Distress Skin: Warm, Dry, Other (see extremity exam) Head: Normacephalic Eye(s): bilateral: Normal Inspection Oral Mucosa: Moist Cardiovascular: Rhythm Regular Respiratory: Normal Breath Sounds, No Accessory Muscle Use, No Rales, No Rhonchi, No Wheezing Gastrointestinal/Abdominal: Normal Exam, Bowel Sounds, Soft, No Tenderness Extremity: No Calf Tenderness, Deformity (s/p right great toe amputation), Other (There is a large black necrotic area to lateral aspect of the left 1st digit, no cap refill; No wounds to other digits, cap refill< 2 seconds all other digits) Pulses: Left Dorsalis Pedis: Normal, Right Dorsalis Pedis: Normal Neurological/Psych: Oriented x3 ED Course And Treatment - Laboratory Results Result Diagrams: 09/11/18 07:25 09/11/18 07:20 O2 Sat by Pulse Oximetry: 98 (RA) Pulse Ox Interpretation: Normal - Other Rad left great toe xray X-Ray: Interpreted by Me, Viewed By Me (no gas, no fx) Progress Note: Blood work, Xrays ordered and reviewed. Patient given IV Vancomycin and IV Cefepime. - Physician Consult Information Physician Contacted: Siomara Ramirez Outcome Of Conversation: Spoke with Dr. Avtar Ramirez, would like admission under Dr. Groves (who agrees) for left great toe gangrene, possible osteomyelitis. Podiatry resident notified for Dr. Lee Ann Mckay. Disposition - Disposition Disposition: HOSPITALIZED Disposition Time: 11:14 Condition: STABLE - Clinical Impression Clinical Impression: Gangrenous toe - Scribe Statement The provider has reviewed the documentation as recorded by the Aron Brooks Provider Attestation: All medical record entries made by the Aron were at my direction and personally dictated by me. I have reviewed the chart and agree that the record accurately reflects my personal performance of the history, physical exam, medical decision making, and the department course for this patient. I have also personally directed, reviewed, and agree with the discharge instructions and disposition. Decision To Admit - Pt Status Changed To: Hospital Disposition Of: Inpatient - Admit Certification Admit to Inpatient:: After my assessment, the patient will require hospitalization for at least two midnights. This is because of the severity of symptoms shown, intensity of services needed, and/or the medical risk in this patient being treated as an outpatient. - InPatient: Physician Admission Certification: I certify that this patient requires 2 or more midnights of care for the following reason:: see notes - . Bed Request Type: Regular Admitting Physician: Diamante Groves Patient Diagnosis: Gangrenous toe
[2018-09-08] MEDS ORDERED: Vancomycin 1 GM 1 GM/250 ML BAG IVPB ONE (10:59)
[2018-09-08 11:03] LABS: VENOUS BLOOD GAS BASE EXCESS -11.4 mmol/L (0.0-2.0); VENOUS BLOOD GAS PCO2 25 mmHg (40-60); VENOUS BLOOD GAS PO2 37 mm/Hg (30-55); VENOUS BLOOD PH 7.32 (7.32-7.43)
[2018-09-08 11:09] LABS: ALB/GLOB RATIO 1.2 (1.0-2.1); ALBUMIN 4.3 g/dL (3.5-5.0); AST/SGOT 21 U/L (14-36); BLOOD UREA NITROGEN 20 mg/dL (7-17); CALCIUM 9.6 mg/dl (8.6-10.4); GFR NON-AFRICAN AMERICAN 33
[2018-09-08 11:10] LABS: ALT/SGPT < 6 U/L (9-52)
--- NOTE | 2018-09-08 11:40 | RAD ---
PROCEDURE: Radiographs of the left great toe. TECHNIQUE:: AP radiograph of the left foot, with oblique and lateral view of the left great toe. 3 view obtained. COMPARISON: 11/05/2016 FINDINGS: BONES: No fracture lytic lesion seen. No periosteal reaction noted. Along the dorsal great toe there are skin ulcerated wound type changes. Close continued follow-up here recommended given its proximity with the dorsal osseous cortices here. JOINTS: Arthrosis and hallux valgus SOFT TISSUES: Atherosclerotic vascular calcifications present. OTHER FINDINGS: Plate and hardware distal fibula. 5 x 7 mm ossification seen medial to the 1st proximal phalanx not seen as such on the prior study IMPRESSION: Dorsal great toe soft tissue defects compatible with wound ulcer here. No gross radiographic periosteal reaction or definitive cortical destruction to suggest osteomyelitis. However given the proximity close continued follow-up is advised. If needed consider MRI Other findings as above.
--- NOTE | 2018-09-08 11:42 | CP.PCM.CON ---
History of Present Illness - History of Present Illness History of Present Illness: Podiatry Consult note: Dr. Mckay 83 year old female patient with PMHx of Arthritis, Diabetes, Gall Bladder Disease, HTN, HLD, Osteoporosis was seen and evaluated at bedside for left hallux gangrenous changes. Patient is accompanied by her daughter at bedside. Daughter explains that she has always had a wound on the left toe but recently they noticed a change in color to black on the big toe. Reports that she was admitted to subacute rehab for IV abx. Daughter reports that daily dressing changes were being performed prior to coming to the hospital. Denies of any drainage or foul smell from the left foot. Denies of having any recent F/N/V/C/SOB/CP/headache. No other pedal complains at this time. PMHx: Arthritis, Diabetes, Gall Bladder Disease, HTN, HLD, Osteoporosis PSHx: cholecystectomy, R hallux amp, left ankle surgery, left arm surgery Allergies: NKDA SHx: Denies smoking, EtOH or illicit drug usage Review of Systems - Constitutional Constitutional: As Per HPI Past Patient History - Past Medical History & Family History Past Medical History?: Yes - Past Social History Smoking Status: Never Smoked - CARDIAC Hx Hypercholesterolemia: Yes Hx Hypertension: Yes Hx Pacemaker: No - PULMONARY Hx Respiratory Disorders: No - NEUROLOGICAL Hx Neurological Disorder: No - HEENT Hx HEENT Problems: No - RENAL Hx Chronic Kidney Disease: No - ENDOCRINE/METABOLIC Hx Diabetes Mellitus Type 1: Yes - HEMATOLOGICAL/ONCOLOGICAL Hx Cancer: No - INTEGUMENTARY Hx Dermatological Problems: No - MUSCULOSKELETAL/RHEUMATOLOGICAL Hx Arthritis: Yes Hx Osteoporosis: Yes - GASTROINTESTINAL Hx Gall Bladder Disease: Yes - GENITOURINARY/GYNECOLOGICAL Hx Genitourinary Disorders: No - PSYCHIATRIC Hx Substance Use: No - SURGICAL HISTORY Hx Cholecystectomy: Yes - ANESTHESIA Hx Anesthesia: Yes Hx Anesthesia Reactions: No Hx Malignant Hyperthermia: No Meds Allergies/Adverse Reactions: Allergies Allergy/AdvReac Type Severity Reaction Status Date / Time No Known Allergies Allergy Verified 07/02/18 16:41 - Medications Medications: Current Medications Vancomycin HCl (Vancomycin 1gm In Normal Saline Addvantage) 1 gm in 250 mls @ 166.667 mls/hr IV STAT STA; Protocol Stop: 09/08/18 12:14 Last Admin: 09/08/18 11:37 Dose: 166.667 mls/hr Physical Exam - Constitutional Appears: Well, Non-toxic, No Acute Distress - Extremities Exam Additional comments: LLE focused exam VASC: DP and PT pulses palpable 2/4; cap refill approx 3 seconds to digits 2-5; temp gradient warm to warm from proximal to distal, edema noted locally at the hallux DERM: hyperpigmented necrotic changes noted on the distal lateral aspect of the hallux with interspace mild maceration, wound bed is macerated on the lateral b order at the base of the hallux with serous drainage present; no purulence present; minimal malodor. probe to bone positive, tunneling and undermining present on the lateral base of the hallux, clinical suspicion of active OM at this time ORTHO: mild pain on palpation hallux, pain upon 1st MPJ and IPJ ROM NEURO: gross and protective sensation diminished - Neurological Exam Neurological exam: Alert, Oriented x3 - Psychiatric Exam Psychiatric exam: Normal Affect, Normal Mood Results - Vital Signs Recent Vital Signs: Last Vital Signs Temp 98.8 F 09/08/18 10:12 Pulse 95 H 09/08/18 10:12 Resp 20 09/08/18 10:12 BP 145/82 09/08/18 10:12 Pulse Ox 98 09/08/18 11:24 - Labs Result Diagrams: 09/08/18 10:46 09/08/18 10:46 Labs: Laboratory Results - last 24 hr 09/08/18 09/08/18 09/08/18 10:46 10:46 10:55 WBC 10.5 RBC 3.84 Hgb 11.0 D Hct 33.0 L MCV 86.0 MCH 28.6 MCHC 33.3 RDW 16.1 H Plt Count 494 H MPV 7.3 Neut % (Auto) 65.0 Lymph % (Auto) 22.3 [place] % (Auto) 3.4 Eos % (Auto) 8.3 H Baso % (Auto) 1.0 Neut # (Auto) 6.8 Lymph # (Auto) 2.3 [place] # (Auto) 0.4 Eos # (Auto) 0.9 H Baso # (Auto) 0.1 pO2 37 VBG pH 7.32 VBG pCO2 25 L VBG HCO3 15.2 VBG Total CO2 13.7 L VBG O2 Sat (Calc) 75.4 H VBG Base Excess -11.4 L VBG Potassium 2.4 L* Glucose 120 H Lactate 1.1 Crit Value Called To Crit Value Called By Marycruz oropeza rcp Crit Value Read Back Y Blood Gas Notified Time 1102 Sodium 137 142.0 Potassium 5.0 Chloride 102 121.0 H Carbon Dioxide 24 Anion Gap 16 BUN 20 H Creatinine 1.5 H Est GFR ( Amer) 40 Est GFR (Non-Af Amer) 33 Random Glucose 227 H D Calcium 9.6 Total Bilirubin 0.4 AST 21 ALT < 6 L D Alkaline Phosphatase 53 Total Creatine Kinase 31 Total Protein 7.8 Albumin 4.3 Globulin 3.6 Albumin/Globulin Ratio 1.2 Venous Blood Potassium 2.4 L* Assessment & Plan - Assessment and Plan (Free Text) Assessment: 83 year old female patient with PMHx of Arthritis, Diabetes, Gall Bladder D isease, HTN, HLD, Osteoporosis was seen and evaluated for left hallux gangrenous changes Plan: Patient seen and evaluated Discussed with attending, Dr. Mckay VSS; No leukocytosis Left foot MRI from previous admission - possible osteomyelitis of first digit, not conclusive Left foot X-ray - Periosteal reaction with errosive changes at the level of the hallux and 1st met head possibly suggestive of OM Left foot WCX: Pending ID consult Dr. Brunner IV abx as per ID Vascular Consult Dr. Hobson MIGUEL ÁNGEL/PVR from previous admission: No evidence of hemodynamically significant arterial insufficiency CTA from previous admission: Occlusion of below knee popliteal ., INKER/profunda femoris/SFA unremarkable, patent anterior/posterior tibial a., peroneal a. patent, moderate calcification distal segment -Patient s/p aortofemoral angiogram from previous admission. selective cat herization of left femoral artery. pathway atherectomy of sfa/pop/ tibial peroneal trunk. dcb angioplasty of same. balloon angioplasty of anterior tibial artery. 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
--- NOTE | 2018-09-08 16:20 | CP.PCM.CON ---
History of Present Illness - History of Present Illness History of Present Illness: Vascular Surgery Consult Note- Dr. Hobson Reason for Consult: PVD 83F known to our service pmhx significant for DM, HTN, HLD, Arthritis presents to [facility] ED w/ Left foot pain and increasing gangrenous color changes of the left big toe. Of not patient was recently in the hospital receiving IVAbx. on 07/09/18 patient underwent aortofem angio cath Left Fem, and balloon angioplasty of left JOSELITO. Denies purulent drainage from left foot, fevers, chills, chest pain, shortness of breath. PMH: stated above PSH: R. Hallux amputation, Left Fem Cath, Cholecystectomy ALL: NKDA SocialHx: denies tobacco, etoh, recreational drug use Review of Systems - Review of Systems All systems: reviewed and no additional remarkable complaints except - Constitutional Constitutional: As Per HPI Past Patient History - Past Medical History & Family History Past Medical History?: Yes - Past Social History Smoking Status: Never Smoked - CARDIAC Hx Hypercholesterolemia: Yes Hx Hypertension: Yes Hx Pacemaker: No - PULMONARY Hx Respiratory Disorders: No - NEUROLOGICAL Hx Neurological Disorder: No - HEENT Hx HEENT Problems: No - RENAL Hx Chronic Kidney Disease: No - ENDOCRINE/METABOLIC Hx Diabetes Mellitus Type 1: Yes - HEMATOLOGICAL/ONCOLOGICAL Hx Cancer: No - INTEGUMENTARY Hx Dermatological Problems: No - MUSCULOSKELETAL/RHEUMATOLOGICAL Hx Arthritis: Yes Hx Osteoporosis: Yes - GASTROINTESTINAL Hx Gall Bladder Disease: Yes - GENITOURINARY/GYNECOLOGICAL Hx Genitourinary Disorders: No - PSYCHIATRIC Hx Substance Use: No - SURGICAL HISTORY Hx Cholecystectomy: Yes - ANESTHESIA Hx Anesthesia: Yes Hx Anesthesia Reactions: No Hx Malignant Hyperthermia: No Meds Allergies/Adverse Reactions: Allergies Allergy/AdvReac Type Severity Reaction Status Date / Time No Known Allergies Allergy Verified 07/02/18 16:41 Physical Exam - Constitutional Appears: Non-toxic, No Acute Distress - Head Exam Head Exam: ATRAUMATIC - Eye Exam Eye Exam: EOMI. absent: Scleral icterus - ENT Exam ENT Exam: Mucous Membranes Moist - Respiratory Exam Respiratory Exam: NORMAL BREATHING PATTERN. absent: Accessory Muscle Use, Respiratory Distress - Cardiovascular Exam Cardiovascular Exam: REGULAR RHYTHM. absent: Bradycardia, Tachycardia - GI/Abdominal Exam GI & Abdominal Exam: Soft. absent: Distended, Guarding, Hernia, Rigid, Tender ness - Extremities Exam Additional comments: LLE foot wrapped with betadine Palpable Left DP, non-palpable PT. Palpable Popliteal pulses Left Right palpable DP and PT on Right - Neurological Exam Neurological exam: Alert, Oriented x3 - Psychiatric Exam Psychiatric exam: Normal Affect Results - Vital Signs Recent Vital Signs: Last Vital Signs Temp 97.9 F 09/08/18 13:23 Pulse 97 H 09/08/18 13:23 Resp 18 09/08/18 13:23 BP 157/70 H 09/08/18 13:23 Pulse Ox 96 09/08/18 13:23 - Labs Result Diagrams: 09/08/18 10:46 09/08/18 10:46 Labs: Laboratory Results - last 24 hr 09/08/18 09/08/18 09/08/18 10:46 10:46 10:55 WBC 10.5 RBC 3.84 Hgb 11.0 D Hct 33.0 L MCV 86.0 MCH 28.6 MCHC 33.3 RDW 16.1 H Plt Count 494 H MPV 7.3 Neut % (Auto) 65.0 Lymph % (Auto) 22.3 Iron % (Auto) 3.4 Eos % (Auto) 8.3 H Baso % (Auto) 1.0 Neut # (Auto) 6.8 Lymph # (Auto) 2.3 Iron # (Auto) 0.4 Eos # (Auto) 0.9 H Baso # (Auto) 0.1 ESR 48 H pO2 37 VBG pH 7.32 VBG pCO2 25 L VBG HCO3 15.2 VBG Total CO2 13.7 L VBG O2 Sat (Calc) 75.4 H VBG Base Excess -11.4 L VBG Potassium 2.4 L* Glucose 120 H Lactate 1.1 Crit Value Called To Crit Value Called By Marycruz oropeza rcp Crit Value Read Back Y Blood Gas Notified Time 1102 Sodium 137 142.0 Potassium 5.0 Chloride 102 121.0 H Carbon Dioxide 24 Anion Gap 16 BUN 20 H Creatinine 1.5 H Est GFR ( Amer) 40 Est GFR (Non-Af Amer) 33 Random Glucose 227 H D Calcium 9.6 Total Bilirubin 0.4 AST 21 ALT < 6 L D Alkaline Phosphatase 53 Total Creatine Kinase 31 Total Protein 7.8 Albumin 4.3 Globulin 3.6 Albumin/Globulin Ratio 1.2 Venous Blood Potassium 2.4 L* Assessment & Plan - Assessment and Plan (Free Text) Assessment: 83F w/ PVD and gangrene of the Left toe Plan: - will order CTA w/ aortoileofem runoff - MIGUEL ÁNGEL/PVR - further management pending results of imaging - hydrate for Cr of 1.[address] scan - d/w Dr. Hobson Surgical attending PGY2
--- NOTE | 2018-09-08 16:58 | CP.PCM.HP ---
Past Patient History - Past Medical History & Family History Past Medical History?: Yes - Past Social History Smoking Status: Never Smoked - CARDIAC Hx Hypercholesterolemia: Yes Hx Hypertension: Yes Hx Pacemaker: No - PULMONARY Hx Respiratory Disorders: No - NEUROLOGICAL Hx Neurological Disorder: No - HEENT Hx HEENT Problems: No - RENAL Hx Chronic Kidney Disease: No - ENDOCRINE/METABOLIC Hx Diabetes Mellitus Type 1: Yes - HEMATOLOGICAL/ONCOLOGICAL Hx Cancer: No - INTEGUMENTARY Hx Dermatological Problems: No - MUSCULOSKELETAL/RHEUMATOLOGICAL Hx Arthritis: Yes Hx Osteoporosis: Yes - GASTROINTESTINAL Hx Gall Bladder Disease: Yes - GENITOURINARY/GYNECOLOGICAL Hx Genitourinary Disorders: No - PSYCHIATRIC Hx Substance Use: No - SURGICAL HISTORY Hx Cholecystectomy: Yes - ANESTHESIA Hx Anesthesia: Yes Hx Anesthesia Reactions: No Hx Malignant Hyperthermia: No Meds Allergies/Adverse Reactions: Allergies Allergy/AdvReac Type Severity Reaction Status Date / Time No Known Allergies Allergy Verified 07/02/18 16:41 Results - Vital Signs Recent Vital Signs: Last Vital Signs Temp 98.2 F 09/08/18 16:26 Pulse 77 09/08/18 16:26 Resp 17 09/08/18 16:26 BP 164/78 H 09/08/18 16:26 Pulse Ox 99 09/08/18 16:26 - Labs Result Diagrams: 09/08/18 10:46 09/08/18 10:46 Labs: Laboratory Results - last 24 hr 09/08/18 09/08/18 09/08/18 10:46 10:46 10:55 WBC 10.5 RBC 3.84 Hgb 11.0 D Hct 33.0 L MCV 86.0 MCH 28.6 MCHC 33.3 RDW 16.1 H Plt Count 494 H MPV 7.3 Neut % (Auto) 65.0 Lymph % (Auto) 22.3 [place] % (Auto) 3.4 Eos % (Auto) 8.3 H Baso % (Auto) 1.0 Neut # (Auto) 6.8 Lymph # (Auto) 2.3 [place] # (Auto) 0.4 Eos # (Auto) 0.9 H Baso # (Auto) 0.1 ESR 48 H pO2 37 VBG pH 7.32 VBG pCO2 25 L VBG HCO3 15.2 VBG Total CO2 13.7 L VBG O2 Sat (Calc) 75.4 H VBG Base Excess -11.4 L VBG Potassium 2.4 L* Glucose 120 H Lactate 1.1 Crit Value Called To Crit Value Called By Marycruz oropeza rcp Crit Value Read Back Y Blood Gas Notified Time 1102 Sodium 137 142.0 Potassium 5.0 Chloride 102 121.0 H Carbon Dioxide 24 Anion Gap 16 BUN 20 H Creatinine 1.5 H Est GFR ( Amer) 40 Est GFR (Non-Af Amer) 33 Random Glucose 227 H D Calcium 9.6 Total Bilirubin 0.4 AST 21 ALT < 6 L D Alkaline Phosphatase 53 Total Creatine Kinase 31 Total Protein 7.8 Albumin 4.3 Globulin 3.6 Albumin/Globulin Ratio 1.2 Venous Blood Potassium 2.4 L*
[2018-09-08] MEDS ORDERED: Dextrose 50% SYRINGE Inj (50 ml) IV PRN (17:04)
[2018-09-08] MEDS ORDERED: Glucagon Recombinant 1 mg Inj IM PRN (17:04)
[2018-09-08] MEDS: (Novolog) Insulin Aspart, Recombinant 100 u/ml 10 ml vial SC SCH (21:42)
--- NOTE | 2018-09-08 23:49 | CP.PCM.CON ---
History of Present Illness - History of Present Illness History of Present Illness: 83 year old female patient with PMHx of Arthritis, Diabetes, Gall Bladder Disease, HTN, HLD, Osteoporosis admitted via ER for left hallux gangrenous changes. Patient was treted for OM of left great toe in [facility] with gradual improvement but recently the toe turned black and ID consulted for antibiotic management PMHx: Arthritis, Diabetes, Gall Bladder Disease, HTN, HLD, Osteoporosis PSHx: cholecystectomy, R hallux amp, left ankle surgery, left arm surgery Allergies: NKDA SHx: Denies smoking, EtOH or illicit drug usage Review of Systems - Review of Systems All systems: reviewed and no additional remarkable complaints except - Constitutional Constitutional: absent: As Per HPI, Anorexia, Chills, Daytime Sleepiness, Exc essive Sweating, Fatigue, Fever, Frequent Falls, Headache, Increased Appetite, Lethargy, Malaise, Night Sweats, Snoring, Sleep Apnea, Weight Gain, Weight Loss, Weakness, Other - EENT Eyes: absent: As Per HPI, Blind Spots, Blurred Vision, Change in Vision, Decre ased Night Vision, Diplopia, Discharge, Dry Eye, Exophthalmos, Floaters, Irritation, Itchy Eyes, Loss of Peripheral Vision, Pain, Photophobia, Requires Corrective Lenses, Sees Flashes, Spots in Vision, Tunnel Vision, Other Visual Disturbances, Loss of Vision, Other Ears: absent: As Per HPI, Decreased Hearing, Ear Discharge, Ear Pain, Tinnitus, Abnormal Hearing, Disequilibrium, Dizziness, Other Nose/Mouth/Throat: absent: As Per HPI, Epistaxis, Nasal Congestion, Nasal Discharge, Nasal Obstruction, Nasal Trauma, Nose Pain, Post Nasal Drip, Sinus P ain, Sinus Pressure, Bleeding Gums, Change in Voice, Dental Pain, Dry Mouth, Dysphagia, Halitosis, Hoarsness, Lip Swelling, Mouth Lesions, Mouth Pain, Odynophagia, Sore Throat, Throat Swelling, Tongue Swelling, Facial Pain, Neck Pain, Neck Mass, Other - Breasts Breasts: absent: As Per HPI, Change in Shape, Mass, Pain, Nipple Discharge, Nipple Inversion, Skin Changes, Swelling, Other - Cardiovascular Cardiovascular: As Per HPI - Respiratory Respiratory: absent: As Per HPI, Cough, Dyspnea, Hemoptysis, Dyspnea on Exertion, Wheezing, Snoring, Stridor, Pain on Inspiration, Chest Congestion, Excessive Mucous Production, Change in Mucous Color, Pain with Coughing, Other - Gastrointestinal Gastrointestinal: absent: As Per HPI, Abdominal Pain, Belching, Bloating, Change in Bowel Habits, Change in Stool Character, Coffee Ground Emesis, Constipation, Cramping, Diarrhea, Dyspepsia, Dysphagia, Early Satiety, Excessive Flatus, Fecal Incontinence, Heartburn, Hematemesis, Hematochezia, Loose Stools, Melena, Nausea, Odynophagia, Temesmus, Vomiting, Other - Genitourinary Genitourinary: absent: As Per HPI, Change in Urinary Stream, Difficulty Urinating, Dysuria, Flank Pain, Hematuria, Pyuria, Nocturia, Urinary Incontinence, Urinary Frequency, Urinary Hesitance, Urinary Urgency, Voiding Freq/Small Amts, Freq UTI, Hx Renal/Bladder Calculi, Hx /Renal Surgery, Bladder Distension, Other - Reproductive: Female Reproductive:Female: absent: As Per HPI, Amenorrhea, Amenorrhea/ Control, Currently Menstual, Cycle <21 Days, Cycle >35 Days, Cycle Variable, Menses 1-7 Days, Menses >/= 8 Days, Menses Variable, Cycle > 4 Weeks Between, No Menses for 6 Months, Heavy Menses, Light Menses, Normal Menses, Spotting Between Cycles, S/P Hysterectomy, Menopausal, Post Menopausal, Premenarche, Abnormal Vaginal Bleeding, Dysmenorrhea, Dyspareunia, Genital Lesions, Genital Pruritis, Pelvic Pain, Prolapse Symptoms, Sexual Dysfunction, Vaginal Discharge, Vaginal Dryness, Vaginal Odor, Vaginal Pruritis, Other - Menstruation Menstruation: absent: As Per HPI, Amenorrhea, Amenorrhea/ Control, Currently Menstual, Cycle <21 Days, Cycle >35 Days, Cycle Variable, Menses 1-7 Days, Menses >/= 8 Days, Menses Variable, Cycle > 4 Weeks Between, No Menses for 6 Months, Heavy Menses, Light Menses, Normal Menses, Spotting Between Cycles, S/P Hysterectomy, Menopausal, Post Menopausal, Premenarche, Abnormal Vaginal Bleeding, Dysmenorrhea, Other - Musculoskeletal Musculoskeletal: As Per HPI - Integumentary Integumentary: As Per HPI, Skin Pain, Wounds - Neurological Neurological: absent: As Per HPI, Abnormal Gait, Abnormal Hearing, Abnormal Movements, Abnormal Speech, Behavioral Changes, Burning Sensations, Confusion, Convulsions, Disequilibrium, Dizziness, Numbness, Focal Weakness, Frequent Falls, Headaches, Lack of Coordination, Loss of Vision, Memory Loss, Paresthesias, Radicular Pain, Restless Legs, Sensory Deficit, Syncope, Tingling, Tremor, Vertigo, Weakness, Other Visual Disturbances, Other - Psychiatric Psychiatric: absent: As Per HPI, Abnormal Sleep Pattern, Anhedonia, Anxiety, Auditory Hallucinations, Behavioral Changes, Change in Appetite, Change in Libido, Confusion, Depression, Difficulty Concentrating, Hallucinations, Homicidal Ideation, Hopelessness, Irritability, Memory Loss, Mood Swings, Panic Attacks, Paranoia, Suicidal Ideation, Visual Hallucinations, Tactile Hallucinations, Other - Endocrine Endocrine: As Per HPI - Hematologic/Lymphatic Hematologic: absent: As Per HPI, Easy Bleeding, Easy Bruising, Lymphadenopathy, Other Past Patient History - Past Medical History & Family History Past Medical History?: Yes - Past Social History Smoking Status: Never Smoked - CARDIAC Hx Hypercholesterolemia: Yes Hx Hypertension: Yes Hx Pacemaker: No - PULMONARY Hx Respiratory Disorders: No - NEUROLOGICAL Hx Neurological Disorder: No - HEENT Hx HEENT Problems: No - RENAL Hx Chronic Kidney Disease: No - ENDOCRINE/METABOLIC Hx Diabetes Mellitus Type 1: Yes - HEMATOLOGICAL/ONCOLOGICAL Hx Cancer: No - INTEGUMENTARY Hx Dermatological Problems: No - MUSCULOSKELETAL/RHEUMATOLOGICAL Hx Arthritis: Yes Hx Osteoporosis: Yes - GASTROINTESTINAL Hx Gall Bladder Disease: Yes - GENITOURINARY/GYNECOLOGICAL Hx Genitourinary Disorders: No - PSYCHIATRIC Hx Substance Use: No - SURGICAL HISTORY Hx Cholecystectomy: Yes - ANESTHESIA Hx Anesthesia: Yes Hx Anesthesia Reactions: No Hx Malignant Hyperthermia: No Meds Allergies/Adverse Reactions: Allergies Allergy/AdvReac Type Severity Reaction Status Date / Time No Known Allergies Allergy Verified 07/02/18 16:41 - Medications Medications: Current Medications Aspirin (Ecotrin) 81 mg PO DAILY [facility] Dextrose (Dextrose 50% Inj) 0 ml IV STAT PRN; Protocol PRN Reason: Hypoglycemia Protocol Dextrose (Glutose 15) 0 gm PO ONCE PRN; Protocol PRN Reason: Hypoglycemia Protocol Glipizide (Glucotrol) 5 mg PO DAILY [facility] Glucagon (Glucagen Diagnostic Kit) 0 mg IM STAT PRN; Protocol PRN Reason: Hypoglycemia Protocol Dextrose (Dextrose 5% In Water 1000 Ml) 1,000 mls @ 0 mls/hr IV .Q0M PRN; Protocol PRN Reason: Hypoglycemia Protocol Insulin Aspart (Novolog) 0 unit SC ACHS [facility]; Protocol Last Admin: 09/08/18 21:42 Dose: Not Given Metformin HCl (Glucophage Xr) 500 mg PO BID [facility] Last Admin: 09/08/18 17:46 Dose: 500 mg Rosuvastatin Calcium (Crestor) 10 mg PO HS [facility] Last Admin: 09/08/18 21:07 Dose: 10 mg Sitagliptin Phosphate (Januvia) 100 mg PO DAILY [facility] Physical Exam - Constitutional Appears: Non-toxic, No Acute Distress, Chronically Ill - Head Exam Head Exam: ATRAUMATIC, NORMAL INSPECTION, NORMOCEPHALIC - Eye Exam Eye Exam: EOMI, Normal appearance, PERRL Pupil Exam: NORMAL ACCOMODATION, PERRL - ENT Exam ENT Exam: Mucous Membranes Moist, Normal Exam - Neck Exam Neck exam: Positive for: Normal Inspection - Respiratory Exam Respiratory Exam: Clear to Auscultation Bilateral, NORMAL BREATHING PATTERN - Cardiovascular Exam Cardiovascular Exam: REGULAR RHYTHM, +S1, +S2 - GI/Abdominal Exam GI & Abdominal Exam: Diminished Bowel Sounds, Soft. absent: Tenderness - Rectal Exam Rectal Exam: Deferred - Extremities Exam Extremities exam: Positive for: joint swelling, pedal edema, tenderness. Negative for: calf tenderness, normal capillary refill, normal inspection, pedal pulses present Additional comments: necrotiv great toe left foot decreased pulses - Back Exam Back exam: NORMAL INSPECTION - Neurological Exam Neurological exam: Alert, CN II-XII Intact, Oriented x3, Reflexes Normal - Psychiatric Exam Psychiatric exam: Anxious, Normal Mood - Skin Skin Exam: Dry, Intact, Normal Color, Warm Results - Vital Signs Recent Vital Signs: Last Vital Signs Temp 98.4 F 09/08/18 19:55 Pulse 82 09/08/18 19:55 Resp 20 09/08/18 19:55 BP 161/72 H 09/08/18 19:55 Pulse Ox 100 09/08/18 19:55 - Labs Result Diagrams: 09/08/18 10:46 09/08/18 10:46 Labs: Laboratory Results - last 24 hr 09/08/18 09/08/18 09/08/18 10:46 10:46 10:55 WBC 10.5 RBC 3.84 Hgb 11.0 D Hct 33.0 L MCV 86.0 MCH 28.6 MCHC 33.3 RDW 16.1 H Plt Count 494 H MPV 7.3 Neut % (Auto) 65.0 Lymph % (Auto) 22.3 Cochran % (Auto) 3.4 Eos % (Auto) 8.3 H Baso % (Auto) 1.0 Neut # (Auto) 6.8 Lymph # (Auto) 2.3 Cochran # (Auto) 0.4 Eos # (Auto) 0.9 H Baso # (Auto) 0.1 ESR 48 H pO2 37 VBG pH 7.32 VBG pCO2 25 L VBG HCO3 15.2 VBG Total CO2 13.7 L VBG O2 Sat (Calc) 75.4 H VBG Base Excess -11.4 L VBG Potassium 2.4 L* Glucose 120 H Lactate 1.1 Crit Value Called To Crit Value Called By Marycruz oropeza rcp Crit Value Read Back Y Blood Gas Notified Time 1102 Sodium 137 142.0 Potassium 5.0 Chloride 102 121.0 H Carbon Dioxide 24 Anion Gap 16 BUN 20 H Creatinine 1.5 H Est GFR ( Amer) 40 Est GFR (Non-Af Amer) 33 POC Glucose (mg/dL) Random Glucose 227 H D Calcium 9.6 Total Bilirubin 0.4 AST 21 ALT < 6 L D Alkaline Phosphatase 53 Total Creatine Kinase 31 Total Protein 7.8 Albumin 4.3 Globulin 3.6 Albumin/Globulin Ratio 1.2 Venous Blood Potassium 2.4 L* 09/08/18 09/08/18 17:17 21:24 WBC RBC Hgb Hct MCV MCH MCHC RDW Plt Count MPV Neut % (Auto) Lymph % (Auto) Cochran % (Auto) Eos % (Auto) Baso % (Auto) Neut # (Auto) Lymph # (Auto) Cochran # (Auto) Eos # (Auto) Baso # (Auto) ESR pO2 VBG pH VBG pCO2 VBG HCO3 VBG Total CO2 VBG O2 Sat (Calc) VBG Base Excess VBG Potassium Glucose Lactate Crit Value Called To Crit Value Called By Crit Value Read Back Blood Gas Notified Time Sodium Potassium Chloride Carbon Dioxide Anion Gap BUN Creatinine Est GFR ( Amer) Est GFR (Non-Af Amer) POC Glucose (mg/dL) 162 H 164 H Random Glucose Calcium Total Bilirubin AST ALT Alkaline Phosphatase Total Creatine Kinase Total Protein Albumin Globulin Albumin/Globulin Ratio Venous Blood Potassium Assessment & Plan (1) Arterial, arteriole and capillary disease Status: Acute (2) Cellulitis Status: Acute (3) Diabetes Status: Acute (4) 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 Patient states recently they noticed a change in color to black on the big toe. R Patient will need first ray amputation left foot after Vascular and cardio clearance empiric IV antibiotics in progress
[2018-09-09] MEDS: (Novolog) Insulin Aspart, Recombinant 100 u/ml 10 ml vial SC SCH ×4 (08:39→21:36)
--- NOTE | 2018-09-09 11:41 | CP.PCM.PN ---
<Sarahi Ramirez - Last Filed: 09/09/18 11:35> Subjective - Date & Time of Evaluation Date of Evaluation: 09/09/18 Time of Evaluation: 11:36 - Subjective Subjective: Podiatry Progress note: Dr. Mckay 83 year old female patient evaluated at bedside for left hallux gangrenous changes. Patient is AAOx3 and appears in NAD. States that she was seen by Dr. Mckay yesterday. Denies of any recent F/N/V/C/SOB/CP/headache. Denies of any pain today. No other pedal complains at this time. Objective - Vital Signs/Intake and Output Vital Signs (last 24 hours): Temp Pulse Resp BP Pulse Ox 98.1 F 77 20 155/70 H 97 09/09/18 08:02 09/09/18 08:02 09/09/18 08:02 09/09/18 08:02 09/09/18 08:02 Intake and Output: 09/09/18 09/09/18 06:59 18:59 Intake Total 360 Balance 360 - Medications Medications: Current Medications Aspirin (Ecotrin) 81 mg PO DAILY [facility] Last Admin: 09/09/18 11:01 Dose: 81 mg Dextrose (Dextrose 50% Inj) 0 ml IV STAT PRN; Protocol PRN Reason: Hypoglycemia Protocol Dextrose (Glutose 15) 0 gm PO ONCE PRN; Protocol PRN Reason: Hypoglycemia Protocol Glipizide (Glucotrol) 5 mg PO DAILY [facility] Last Admin: 09/09/18 11:02 Dose: 5 mg Glucagon (Glucagen Diagnostic Kit) 0 mg IM STAT PRN; Protocol PRN Reason: Hypoglycemia Protocol Heparin Sodium (Porcine) (Heparin) 5,000 units SC Q12 [facility] Last Admin: 09/09/18 11:02 Dose: 5,000 units Dextrose (Dextrose 5% In Water 1000 Ml) 1,000 mls @ 0 mls/hr IV .Q0M PRN; Protocol PRN Reason: Hypoglycemia Protocol Insulin Aspart (Novolog) 0 unit SC ACHS [facility]; Protocol Last Admin: 09/09/18 11:18 Dose: 3 units Metformin HCl (Glucophage Xr) 500 mg PO BID [facility] Last Admin: 09/09/18 11:01 Dose: 500 mg Rosuvastatin Calcium (Crestor) 10 mg PO HS [facility] Last Admin: 09/08/18 21:07 Dose: 10 mg Sitagliptin Phosphate (Januvia) 100 mg PO DAILY [facility] Last Admin: 09/09/18 11:01 Dose: 100 mg - Labs Labs: 09/08/18 10:46 09/08/18 10:46 - Constitutional Appears: Well, Non-toxic, No Acute Distress - Extremities Exam Additional comments: LLE focused exam VASC: DP and PT pulses palpable 2/4; cap refill approx 3 seconds to digits 2-5; temp gradient warm to warm from proximal to distal, edema noted locally at the hallux DERM: hyperpigmented necrotic changes noted on the distal lateral aspect of the hallux with interspace mild maceration, wound bed is macerated on the lateral border at the base of the hallux with serous drainage present; no purulence present; minimal malodor. probe to bone positive, tunneling and undermining present on the lateral base of the hallux, clinical suspicion of active OM at this time ORTHO: mild pain on palpation hallux, pain upon 1st MPJ and IPJ ROM NEURO: gross and protective sensation diminished - Neurological Exam Neurological Exam: Alert, Awake, Oriented x3 - Psychiatric Exam Psychiatric exam: Normal Affect, Normal Mood Assessment and Plan - Assessment and Plan (Free Text) Assessment: 83 year old female patient evaluated for left hallux gangrenous changes Plan: Patient seen and evaluated Discussed with attending, Dr. Nely OROURKE; No leukocytosis Left foot X-ray - Periosteal reaction with errosive changes at the level of the hallux and 1st met head possibly suggestive of OM Left foot MRI from previous admission - possible osteomyelitis of first digit, not conclusive Left foot WCX: Pending ID consult Dr. Brunner IV abx as per ID Vascular Consult Dr. Hobson MIGUEL ÁNGEL/PVR from this admission: Pending CTA w/ aortoileofem runoff: Pending MIGUEL ÁNGEL/PVR from previous admission: No evidence of hemodynamically significant arterial insufficiency CTA from previous admission: Occlusion of below knee popliteal ., CAR COOPER/profunda femoris/SFA unremarkable, patent anterior/posterior tibial a., peroneal a. patent, moderate calcification distal segment -Patient s/p aortofemoral angiogram from previous admission. selective catherization of left femoral artery. pathway atherectomy of sfa/pop/ tibial peroneal trunk. dcb angioplasty of same. balloon angioplasty of anterior tibial artery. perclose right groin Dressing applied using betadine, DSD Clinical suspicion of active OM of left hallux Plan for partial left 1st ray amputation under IV sedation with local anesthesia this Friday (09/11) Please provide medical optimization for the planned procedure Will continue to monitor patient while in-house <Murphy Mckay D - Last Filed: 09/09/18 14:20> Objective - Vital Signs/Intake and Output Vital Signs (last 24 hours): Temp Pulse Resp BP Pulse Ox 98.1 F 77 20 155/70 H 97 09/09/18 08:02 09/09/18 08:02 09/09/18 08:02 09/09/18 08:02 09/09/18 08:02 Intake and Output: 09/09/18 09/09/18 06:59 18:59 Intake Total 360 Balance 360 - Medications Medications: Current Medications Aspirin (Ecotrin) 81 mg PO DAILY [facility] Last Admin: 09/09/18 11:01 Dose: 81 mg Dextrose (Dextrose 50% Inj) 0 ml IV STAT PRN; Protocol PRN Reason: Hypoglycemia Protocol Dextrose (Glutose 15) 0 gm PO ONCE PRN; Protocol PRN Reason: Hypoglycemia Protocol Glipizide (Glucotrol) 5 mg PO DAILY [facility] Last Admin: 09/09/18 11:02 Dose: 5 mg Glucagon (Glucagen Diagnostic Kit) 0 mg IM STAT PRN; Protocol PRN Reason: Hypoglycemia Protocol Heparin Sodium (Porcine) (Heparin) 5,000 units SC Q12 [facility] Last Admin: 09/09/18 11:02 Dose: 5,000 units Dextrose (Dextrose 5% In Water 1000 Ml) 1,000 mls @ 0 mls/hr IV .Q0M PRN; Protocol PRN Reason: Hypoglycemia Protocol Insulin Aspart (Novolog) 0 unit SC ACHS [facility]; Protocol Last Admin: 09/09/18 11:18 Dose: 3 units Metformin HCl (Glucophage Xr) 500 mg PO BID [facility] Last Admin: 09/09/18 11:01 Dose: 500 mg Rosuvastatin Calcium (Crestor) 10 mg PO HS [facility] Last Admin: 09/08/18 21:07 Dose: 10 mg Sitagliptin Phosphate (Januvia) 100 mg PO DAILY [facility] Last Admin: 09/09/18 11:01 Dose: 100 mg - Labs Labs: 09/08/18 10:46 04/23/19 10:46 Attending/Attestation - Attestation I have personally seen and examined this patient.: Yes I have fully participated in the care of the patient.: Yes I have reviewed all pertinent clinical information, including history, physical exam and plan: Yes Notes (Text): 09/09/18 14:12 Pt understands all risks and alternatives and consents to left partial 1st ray amp. Pt understands that this is a limb salvage procedure and if healing is compromised future surgery and/or limbloss is possible if healing is compromised. Will hold ASA and heparin starting tomorrow. Dr. Hobson on case and to provide vascular clearance. Dr. Sawant consulted to provide cardiac clearance and Dr. Avtar Ramirez to provide medical clearance. Dr. Brunner on board who also suggests left partial 1st ray amp. NPO orders to be put in tomorrow. Surgery scheduled for 09/11/18 at 1PM.
--- NOTE | 2018-09-09 13:07 | VASCLAB ---
Date of service: 09/09/2018 PROCEDURE: Left Lower Extremity Arterial Exam. HISTORY: Gangrene, Post Left Limb Revascularization(Balloon, Angioplasty) COMPARISON: None available. TECHNIQUE: Grayscale and duplex Doppler evaluation of the left common femoral, femoral, profunda femoral, popliteal, posterior tibial, anterior tibial and dorsalis pedis arteries was performed. Report prepared by Raffy Boswell T FINDINGS: LEFT LOWER EXTREMITY: * Common Femoral Artery: Peak Systolic Velocity - 83.2: Doppler Waveform: Biphasic: Plaque description - * Profunda Femoral Artery: Peak Systolic Velocity - 46.6: Doppler Waveform: Biphasic.: Plaque description - * Femoral Artery o Proximal Segment: Peak Systolic Velocity - 75.2: Doppler Waveform: Biphasic: Plaque description - o Middle Segment: Peak Systolic Velocity - 86.5: Doppler Waveform: Biphasic: Plaque description - o Distal Segment: Peak Systolic Velocity - 69.9: Doppler Waveform: Biphasic: Plaque description - * Popliteal Artery o Proximal Segment: Peak Systolic Velocity - 69.9: Doppler Waveform: Biphasic: Plaque description - o Middle Segment: Peak Systolic Velocity - 63.1: Doppler Waveform: Biphasic: Plaque description - o Distal Segment: Peak Systolic Velocity - 71.9: Doppler Waveform: Biphasic: Plaque description - * Posterior Tibial Artery: Peak Systolic Velocity - 106.4: Doppler Waveform: Biphasic: Plaque description - * Anterior Tibial Artery: Peak Systolic Velocity - 130.1: Doppler Waveform: Biphasic: Plaque description - * Dorsalis Pedis Artery: Peak Systolic Velocity - : Doppler Waveform: Biphasic: Plaque description - OTHER FINDINGS: None. IMPRESSION: There was generalized arterial atherosclerosis noted with mostly biphasic flow and NO evidence of hemodynamically significant arterial insufficiency in the left lower extremity.
--- NOTE | 2018-09-09 16:02 | CP.PCM.PN ---
Subjective - Date & Time of Evaluation Date of Evaluation: 09/09/18 Time of Evaluation: 08:00 - Subjective Subjective: NAD noted seen on rounds orders written labs reviewed no new complaints Objective - Vital Signs/Intake and Output Vital Signs (last 24 hours): Temp Pulse Resp BP Pulse Ox 98.1 F 77 20 155/70 H 97 09/09/18 08:02 09/09/18 08:02 09/09/18 08:02 09/09/18 08:02 09/09/18 08:02 Intake and Output: 09/09/18 09/09/18 06:59 18:59 Intake Total 360 Balance 360 - Medications Medications: Current Medications Aspirin (Ecotrin) 81 mg PO DAILY [facility] Last Admin: 09/09/18 11:01 Dose: 81 mg Dextrose (Dextrose 50% Inj) 0 ml IV STAT PRN; Protocol PRN Reason: Hypoglycemia Protocol Dextrose (Glutose 15) 0 gm PO ONCE PRN; Protocol PRN Reason: Hypoglycemia Protocol Glipizide (Glucotrol) 5 mg PO DAILY [facility] Last Admin: 09/09/18 11:02 Dose: 5 mg Glucagon (Glucagen Diagnostic Kit) 0 mg IM STAT PRN; Protocol PRN Reason: Hypoglycemia Protocol Heparin Sodium (Porcine) (Heparin) 5,000 units SC Q12 [facility] Last Admin: 09/09/18 11:02 Dose: 5,000 units Dextrose (Dextrose 5% In Water 1000 Ml) 1,000 mls @ 0 mls/hr IV .Q0M PRN; Protocol PRN Reason: Hypoglycemia Protocol Insulin Aspart (Novolog) 0 unit SC ACHS [facility]; Protocol Last Admin: 09/09/18 11:18 Dose: 3 units Metformin HCl (Glucophage Xr) 500 mg PO BID [facility] Last Admin: 09/09/18 11:01 Dose: 500 mg Rosuvastatin Calcium (Crestor) 10 mg PO HS [facility] Last Admin: 09/08/18 21:07 Dose: 10 mg Sitagliptin Phosphate (Januvia) 50 mg PO DAILY [facility] - Labs Labs: 09/08/18 10:46 09/08/18 10:46 - Constitutional Appears: Non-toxic, No Acute Distress, Chronically Ill - Head Exam Head Exam: ATRAUMATIC, NORMAL INSPECTION, NORMOCEPHALIC - Eye Exam Eye Exam: EOMI, Normal appearance, PERRL Pupil Exam: NORMAL ACCOMODATION, PERRL - ENT Exam ENT Exam: Mucous Membranes Moist, Normal Exam - Neck Exam Neck Exam: Full ROM, Normal Inspection. absent: Lymphadenopathy - Respiratory Exam Respiratory Exam: Clear to Ausculation Bilateral, NORMAL BREATHING PATTERN - Cardiovascular Exam Cardiovascular Exam: REGULAR RHYTHM, +S1, +S2. absent: Murmur - GI/Abdominal Exam GI & Abdominal Exam: Distended, Soft. absent: Tenderness - Rectal Exam Rectal Exam: Deferred - Exam Exam: NORMAL INSPECTION - Extremities Exam Extremities Exam: Full ROM, Normal Capillary Refill, Normal Inspection. 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
--- NOTE | 2018-09-09 16:07 | CP.PCM.PN ---
Subjective - Date & Time of Evaluation Date of Evaluation: 09/09/18 Time of Evaluation: 16:06 - Subjective Subjective: duplex shows fairly good perfusion into limb if needed toe may be amputated and i would expect it to heal Objective - Vital Signs/Intake and Output Vital Signs (last 24 hours): Temp Pulse Resp BP Pulse Ox 98.1 F 77 20 155/70 H 97 09/09/18 08:02 09/09/18 08:02 09/09/18 08:02 09/09/18 08:02 09/09/18 08:02 Intake and Output: 09/09/18 09/09/18 06:59 18:59 Intake Total 360 Balance 360 - Medications Medications: Current Medications Aspirin (Ecotrin) 81 mg PO DAILY [facility] Last Admin: 09/09/18 11:01 Dose: 81 mg Dextrose (Dextrose 50% Inj) 0 ml IV STAT PRN; Protocol PRN Reason: Hypoglycemia Protocol Dextrose (Glutose 15) 0 gm PO ONCE PRN; Protocol PRN Reason: Hypoglycemia Protocol Glipizide (Glucotrol) 5 mg PO DAILY [facility] Last Admin: 09/09/18 11:02 Dose: 5 mg Glucagon (Glucagen Diagnostic Kit) 0 mg IM STAT PRN; Protocol PRN Reason: Hypoglycemia Protocol Heparin Sodium (Porcine) (Heparin) 5,000 units SC Q12 [facility] Last Admin: 09/09/18 11:02 Dose: 5,000 units Dextrose (Dextrose 5% In Water 1000 Ml) 1,000 mls @ 0 mls/hr IV .Q0M PRN; Protocol PRN Reason: Hypoglycemia Protocol Insulin Aspart (Novolog) 0 unit SC ACHS [facility]; Protocol Last Admin: 09/09/18 11:18 Dose: 3 units Metformin HCl (Glucophage Xr) 500 mg PO BID [facility] Last Admin: 09/09/18 11:01 Dose: 500 mg Rosuvastatin Calcium (Crestor) 10 mg PO HS [facility] Last Admin: 09/08/18 21:07 Dose: 10 mg Sitagliptin Phosphate (Januvia) 50 mg PO DAILY [facility] - Labs Labs: 09/08/18 10:46 09/08/18 10:46
[2018-09-10 06:39] LABS: BASO # 0.1 K/uL (0.0-0.2); BASO % 0.6 % (0.0-2.0); EOS # 0.7 K/uL (0.0-0.7); EOS % 7.9 % (0.0-4.0); HEMOGLOBIN 9.8 g/dL (11.0-16.0); LYMPH # 2.5 K/uL (1.0-4.3); LYMPH % 27.5 % (20.0-40.0); MEAN CELL VOLUME 84.6 fL (81.0-99.0); MEAN CORPUSCULAR HEMOGLOBIN 28.2 pg (27.0-31.0); MEAN CORPUSCULAR HGB CONC 33.3 g/dL (33.0-37.0); MEAN PLATELET VOLUME 7.3 fL (7.2-11.7); MONO # 0.6 K/uL (0.0-0.8); MONO % 6.2 % (0.0-10.0); NEUT # 5.4 K/uL (1.8-7.0); NEUT % 57.8 % (50.0-75.0); RBC 3.48 Mil/uL (3.80-5.20); RED CELL DISTRIBUTION WIDTH 15.5 % (11.5-14.5); WHITE BLOOD COUNT 9.3 K/uL (4.8-10.8)
[2018-09-10 07:07] LABS: ALB/GLOB RATIO 1.2 (1.0-2.1); ALBUMIN 3.8 g/dL (3.5-5.0)
[2018-09-10] MEDS: (Novolog) Insulin Aspart, Recombinant 100 u/ml 10 ml vial SC SCH ×4 (07:20→21:32)
--- NOTE | 2018-09-10 09:19 | CP.PCM.CON ---
History of Present Illness - History of Present Illness History of Present Illness: 83 year old female with following chronic medical problems 1. 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 Diabetes is poorly controlled 3. Hyperlipidemia is chronic and stable on atorvastatin Review of Systems - Review of Systems All systems: reviewed and no additional remarkable complaints except Past Patient History - Past Medical History & Family History Past Medical History?: Yes - Past Social History Smoking Status: Never Smoked - CARDIAC Hx Hypercholesterolemia: Yes Hx Hypertension: Yes Hx Pacemaker: No - PULMONARY Hx Respiratory Disorders: No - NEUROLOGICAL Hx Neurological Disorder: No - HEENT Hx HEENT Problems: No - RENAL Hx Chronic Kidney Disease: No - ENDOCRINE/METABOLIC Hx Diabetes Mellitus Type 1: Yes - HEMATOLOGICAL/ONCOLOGICAL Hx Cancer: No - INTEGUMENTARY Hx Dermatological Problems: No - MUSCULOSKELETAL/RHEUMATOLOGICAL Hx Arthritis: Yes Hx Osteoporosis: Yes - GASTROINTESTINAL Hx Gall Bladder Disease: Yes - GENITOURINARY/GYNECOLOGICAL Hx Genitourinary Disorders: No - PSYCHIATRIC Hx Substance Use: No - SURGICAL HISTORY Hx Cholecystectomy: Yes - ANESTHESIA Hx Anesthesia: Yes Hx Anesthesia Reactions: No Hx Malignant Hyperthermia: No Meds Allergies/Adverse Reactions: Allergies Allergy/AdvReac Type Severity Reaction Status Date / Time No Known Allergies Allergy Verified 07/02/18 16:41 - Medications Medications: Current Medications Aspirin (Ecotrin) 81 mg PO DAILY [facility] Last Admin: 09/09/18 11:01 Dose: 81 mg Dextrose (Dextrose 50% Inj) 0 ml IV STAT PRN; Protocol PRN Reason: Hypoglycemia Protocol Dextrose (Glutose 15) 0 gm PO ONCE PRN; Protocol PRN Reason: Hypoglycemia Protocol Glipizide (Glucotrol) 5 mg PO DAILY [facility] Last Admin: 09/09/18 11:02 Dose: 5 mg Glucagon (Glucagen Diagnostic Kit) 0 mg IM STAT PRN; Protocol PRN Reason: Hypoglycemia Protocol Heparin Sodium (Porcine) (Heparin) 5,000 units SC Q12 [facility] Last Admin: 09/09/18 21:35 Dose: 5,000 units Dextrose (Dextrose 5% In Water 1000 Ml) 1,000 mls @ 0 mls/hr IV .Q0M PRN; Protocol PRN Reason: Hypoglycemia Protocol Insulin Aspart (Novolog) 0 unit SC ACHS [facility]; Protocol Last Admin: 09/10/18 07:20 Dose: Not Given Metformin HCl (Glucophage Xr) 500 mg PO BID [facility] Last Admin: 09/09/18 18:32 Dose: 500 mg Rosuvastatin Calcium (Crestor) 10 mg PO HS [facility] Last Admin: 09/09/18 21:35 Dose: 10 mg Sitagliptin Phosphate (Januvia) 50 mg PO DAILY [facility] Physical Exam - Constitutional Appears: Well, Non-toxic - Head Exam Head Exam: ATRAUMATIC, NORMAL INSPECTION - Eye Exam Eye Exam: PERRL. absent: Scleral icterus - ENT Exam ENT Exam: Mucous Membranes Moist, Normal Oropharynx - Neck Exam Neck exam: Positive for: Full Rom. Negative for: Thyromegaly - Respiratory Exam Respiratory Exam: Clear to Auscultation Bilateral, NORMAL BREATHING PATTERN - Cardiovascular Exam Cardiovascular Exam: REGULAR RHYTHM, RRR, +S1, +S2. absent: JVD Additional comments: + wound dressing c/d/I on left toe; 1+ DP and 1+ PT pulses in the effect leg - Extremities Exam Extremities exam: Negative for: calf tenderness, pedal edema - Neurological Exam Neurological exam: CN II-XII Intact, Oriented x3 - Psychiatric Exam Psychiatric exam: Normal Affect, Normal Mood Results - Vital Signs Recent Vital Signs: Last Vital Signs Temp 98.3 F 09/10/18 07:53 Pulse 78 09/10/18 07:53 Resp 20 09/10/18 07:53 BP 160/77 H 09/10/18 07:53 Pulse Ox 99 09/10/18 07:53 - Labs Result Diagrams: 09/11/18 07:25 09/12/18 11:15 Labs: Laboratory Results - last 24 hr 09/09/18 09/09/18 09/09/18 11:02 16:22 21:32 WBC RBC Hgb Hct MCV MCH MCHC RDW Plt Count MPV Neut % (Auto) Lymph % (Auto) [place] % (Auto) Eos % (Auto) Baso % (Auto) Neut # (Auto) Lymph # (Auto) [place] # (Auto) Eos # (Auto) Baso # (Auto) Sodium Potassium Chloride Carbon Dioxide Anion Gap BUN Creatinine Est GFR ( Amer) Est GFR (Non-Af Amer) POC Glucose (mg/dL) 234 H 93 208 H Random Glucose Calcium Total Bilirubin AST ALT Alkaline Phosphatase Total Protein Albumin Globulin Albumin/Globulin Ratio 09/10/18 09/10/18 09/10/18 06:30 06:30 07:06 WBC 9.3 RBC 3.48 L Hgb 9.8 L Hct 29.4 L MCV 84.6 MCH 28.2 MCHC 33.3 RDW 15.5 H Plt Count 455 H MPV 7.3 Neut % (Auto) 57.8 Lymph % (Auto) 27.5 [place] % (Auto) 6.2 Eos % (Auto) 7.9 H Baso % (Auto) 0.6 Neut # (Auto) 5.4 Lymph # (Auto) 2.5 [place] # (Auto) 0.6 Eos # (Auto) 0.7 Baso # (Auto) 0.1 Sodium 133 Potassium 4.7 Chloride 101 Carbon Dioxide 27 Anion Gap 11 BUN 25 H Creatinine 1.5 H Est GFR ( Amer) 40 Est GFR (Non-Af Amer) 33 POC Glucose (mg/dL) 82 Random Glucose 79 D Calcium 9.0 Total Bilirubin 0.3 AST 18 ALT 12 Alkaline Phosphatase 41 Total Protein 6.9 Albumin 3.8 Globulin 3.1 Albumin/Globulin Ratio 1.2 - EKG Data EKG Interpreted by: Myself EKG shows normal: Sinus rhythm Rate: Normal (LBBB) - Imaging and Cardiology Arterial duplex Status: Image reviewed by me Additional comment: No evidence of severe stenosis Assessment & Plan - Assessment and Plan (Free Text) Assessment: 83 year old female with chronic limb ischemia arterial studies were ordered and do not show critical arterial stenosis, wound care, if poor healing amputation can be considered. She is able to perform > 4 METS daily. She is acceptable risk for amputation if the urgent procedure is required. LBBB chronic and stable no evidence of CHF DM chronic and this condition is likeley to uncontrolled DM, Continue insulin glipizide, metformin. High dose of statin to reduce future CV events. - Date & Time Date: 09/10/18 Time: :
--- NOTE | 2018-09-10 13:34 | CP.PCM.PN ---
Subjective - Date & Time of Evaluation Date of Evaluation: 09/10/18 Time of Evaluation: 13:29 - Subjective Subjective: Podiatry Progress note: Dr. Mckay 83 year old female patient evaluated at bedside for left hallux gangrenous changes. Patient is AAOx3 and appears in NAD. S Denies of any recent F/N/V/C/SOB/CP/headache. Denies of any pain today. Aware of the surgery tomorrow. No other pedal complains at this time. Objective - Vital Signs/Intake and Output Vital Signs (last 24 hours): Temp Pulse Resp BP Pulse Ox 98.3 F 78 20 160/77 H 99 09/10/18 07:53 09/10/18 07:53 09/10/18 07:53 09/10/18 07:53 09/10/18 07:53 Intake and Output: 09/10/18 09/10/18 06:59 18:59 Intake Total 350 Balance 350 - Medications Medications: Current Medications Aspirin (Ecotrin) 81 mg PO DAILY [facility] Last Admin: 09/10/18 10:20 Dose: 81 mg Dextrose (Dextrose 50% Inj) 0 ml IV STAT PRN; Protocol PRN Reason: Hypoglycemia Protocol Dextrose (Glutose 15) 0 gm PO ONCE PRN; Protocol PRN Reason: Hypoglycemia Protocol Glipizide (Glucotrol) 5 mg PO DAILY [facility] Last Admin: 09/10/18 10:20 Dose: 5 mg Glucagon (Glucagen Diagnostic Kit) 0 mg IM STAT PRN; Protocol PRN Reason: Hypoglycemia Protocol Heparin Sodium (Porcine) (Heparin) 5,000 units SC Q12 [facility] Last Admin: 09/10/18 10:21 Dose: 5,000 units Dextrose (Dextrose 5% In Water 1000 Ml) 1,000 mls @ 0 mls/hr IV .Q0M PRN; Protocol PRN Reason: Hypoglycemia Protocol Vancomycin/Sodium Chloride (Vancomycin 1 Gm/Ns 200 Ml) 1 gm in 200 mls @ 133 mls/hr IVPB Q24H [facility]; Protocol Stop: 09/15/18 14:01 Insulin Aspart (Novolog) 0 unit SC ACHS [facility]; Protocol Last Admin: 09/10/18 11:57 Dose: 3 units Metformin HCl (Glucophage Xr) 500 mg PO BID [facility] Last Admin: 09/10/18 10:21 Dose: 500 mg Rosuvastatin Calcium (Crestor) 10 mg PO HS [facility] Last Admin: 09/09/18 21:35 Dose: 10 mg Sitagliptin Phosphate (Januvia) 50 mg PO DAILY [facility] Last Admin: 09/10/18 10:21 Dose: 50 mg - Labs Labs: 09/10/18 06:30 09/10/18 06:30 - Constitutional Appears: Well, Non-toxic, No Acute Distress - Extremities Exam Additional comments: LLE focused exam VASC: DP and PT pulses palpable 2/4; cap refill approx 3 seconds to digits 2-5; temp gradient warm to warm from proximal to distal, edema noted locally at the hallux DERM: hyperpigmented necrotic changes noted on the distal lateral aspect of the hallux with interspace mild maceration, wound bed is macerated on the lateral border at the base of the hallux with serous drainage present; no purulence present; minimal malodor. probe to bone positive, tunneling and undermining present on the lateral base of the hallux, clinical suspicion of active OM at this time ORTHO: mild pain on palpation hallux, pain upon 1st MPJ and IPJ ROM NEURO: gross and protective sensation diminished - Neurological Exam Neurological Exam: Alert, Awake, Oriented x3 - Psychiatric Exam Psychiatric exam: Normal Affect, Normal Mood Assessment and Plan - Assessment and Plan (Free Text) Assessment: 83 year old female patient evaluated for left hallux gangrenous changes Plan: Patient seen and evaluated Discussed with attending, Dr. Nely OROURKE; No leukocytosis Left foot X-ray - Periosteal reaction with errosive changes at the level of the hallux and 1st met head possibly suggestive of OM Left foot MRI from previous admission - possible osteomyelitis of first digit, not conclusive Left foot WCX: Pending ID consult Dr. Brunner; recs appreciated IV abx as per ID Vascular Consult Dr. Hobson; recs appreciated MIGUEL ÁNGEL/PVR from this admission: Mostly biphasic flow, no evidence of hemodynamically significant arterial insufficeiency MIGUEL ÁNGEL/PVR from previous admission: No evidence of hemodynamically significant arterial insufficiency CTA from previous admission: Occlusion of below knee popliteal ., FREIGHT HANDLER/profunda femoris/SFA unremarkable, patent anterior/posterior tibial a., peroneal a. patent, moderate calcification distal segment -Patient s/p aortofemoral angiogram from previous admission. selective catherization of left femoral artery. pathway atherectomy of sfa/pop/ tibial peroneal trunk. dcb angioplasty of same. balloon angioplasty of anterior tibial artery. 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
[2018-09-10] MEDS: Vancomycin 1 gm/NS 200 ml 1 GM/200 ML BAG IVPB SCH (14:41)
--- NOTE | 2018-09-10 17:52 | CP.PCM.PN ---
Subjective - Date & Time of Evaluation Date of Evaluation: 09/10/18 Time of Evaluation: 09:00 - Subjective Subjective: wound + MRSA on Vanco IV Objective - Vital Signs/Intake and Output Vital Signs (last 24 hours): Temp Pulse Resp BP Pulse Ox 97.3 F L 79 20 129/75 100 09/10/18 16:00 09/10/18 16:00 09/10/18 16:00 09/10/18 16:00 09/10/18 16:00 Intake and Output: 09/10/18 09/10/18 06:59 18:59 Intake Total 350 Balance 350 - Medications Medications: Current Medications Aspirin (Ecotrin) 81 mg PO DAILY [facility] Last Admin: 09/10/18 10:20 Dose: 81 mg Dextrose (Dextrose 50% Inj) 0 ml IV STAT PRN; Protocol PRN Reason: Hypoglycemia Protocol Dextrose (Glutose 15) 0 gm PO ONCE PRN; Protocol PRN Reason: Hypoglycemia Protocol Glipizide (Glucotrol) 5 mg PO DAILY [facility] Last Admin: 09/10/18 10:20 Dose: 5 mg Glucagon (Glucagen Diagnostic Kit) 0 mg IM STAT PRN; Protocol PRN Reason: Hypoglycemia Protocol Heparin Sodium (Porcine) (Heparin) 5,000 units SC Q12 [facility] Last Admin: 09/10/18 10:21 Dose: 5,000 units Dextrose (Dextrose 5% In Water 1000 Ml) 1,000 mls @ 0 mls/hr IV .Q0M PRN; Protocol PRN Reason: Hypoglycemia Protocol Vancomycin/Sodium Chloride (Vancomycin 1 Gm/Ns 200 Ml) 1 gm in 200 mls @ 133 mls/hr IVPB Q24H [facility]; Protocol Stop: 09/15/18 14:01 Last Admin: 09/10/18 14:41 Dose: 133 mls/hr Insulin Aspart (Novolog) 0 unit SC ACHS [facility]; Protocol Last Admin: 09/10/18 16:23 Dose: Not Given Metformin HCl (Glucophage Xr) 500 mg PO BID [facility] Last Admin: 09/10/18 17:12 Dose: Not Given Rosuvastatin Calcium (Crestor) 10 mg PO HS [facility] Last Admin: 09/09/18 21:35 Dose: 10 mg Sitagliptin Phosphate (Januvia) 50 mg PO DAILY [facility] Last Admin: 09/10/18 10:21 Dose: 50 mg - Labs Labs: 09/10/18 06:30 04/25/19 06:30 - Constitutional Appears: Well, Non-toxic, Chronically Ill - Head Exam Head Exam: ATRAUMATIC, NORMAL INSPECTION, NORMOCEPHALIC - Eye Exam Eye Exam: EOMI, Normal appearance, PERRL Pupil Exam: NORMAL ACCOMODATION, PERRL - ENT Exam ENT Exam: Mucous Membranes Moist, Normal Exam - Neck Exam Neck Exam: Full ROM, Normal Inspection. absent: Lymphadenopathy - Respiratory Exam Respiratory Exam: Clear to Ausculation Bilateral, NORMAL BREATHING PATTERN - Cardiovascular Exam Cardiovascular Exam: REGULAR RHYTHM, +S1, +S2. absent: Murmur - GI/Abdominal Exam GI & Abdominal Exam: Soft, Normal Bowel Sounds. absent: Tenderness - Rectal Exam Rectal Exam: Deferred - Exam Exam: NORMAL INSPECTION - Extremities Exam Extremities Exam: Full ROM, Normal Capillary Refill, Normal Inspection. 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
--- NOTE | 2018-09-10 18:04 | CP.PCM.PN ---
Subjective - Date & Time of Evaluation Date of Evaluation: 09/09/18 Time of Evaluation: 22:25 - Subjective Subjective: Patient was examined today No nausea No fever No diarrhea No dizziness No vomiting No shortness of breath Objective - Vital Signs/Intake and Output Vital Signs (last 24 hours): Temp Pulse Resp BP Pulse Ox 97.3 F L 79 20 129/75 100 09/10/18 16:00 09/10/18 16:00 09/10/18 16:00 09/10/18 16:00 09/10/18 16:00 Intake and Output: 09/10/18 09/10/18 06:59 18:59 Intake Total 350 Balance 350 - Medications Medications: Current Medications Aspirin (Ecotrin) 81 mg PO DAILY [facility] Last Admin: 09/10/18 10:20 Dose: 81 mg Dextrose (Dextrose 50% Inj) 0 ml IV STAT PRN; Protocol PRN Reason: Hypoglycemia Protocol Dextrose (Glutose 15) 0 gm PO ONCE PRN; Protocol PRN Reason: Hypoglycemia Protocol Glipizide (Glucotrol) 5 mg PO DAILY [facility] Last Admin: 09/10/18 10:20 Dose: 5 mg Glucagon (Glucagen Diagnostic Kit) 0 mg IM STAT PRN; Protocol PRN Reason: Hypoglycemia Protocol Heparin Sodium (Porcine) (Heparin) 5,000 units SC Q12 [facility] Last Admin: 09/10/18 10:21 Dose: 5,000 units Dextrose (Dextrose 5% In Water 1000 Ml) 1,000 mls @ 0 mls/hr IV .Q0M PRN; Protocol PRN Reason: Hypoglycemia Protocol Vancomycin/Sodium Chloride (Vancomycin 1 Gm/Ns 200 Ml) 1 gm in 200 mls @ 133 mls/hr IVPB Q24H [facility]; Protocol Stop: 09/15/18 14:01 Last Admin: 09/10/18 14:41 Dose: 133 mls/hr Insulin Aspart (Novolog) 0 unit SC ACHS [facility]; Protocol Last Admin: 09/10/18 16:23 Dose: Not Given Metformin HCl (Glucophage Xr) 500 mg PO BID [facility] Last Admin: 09/10/18 17:12 Dose: Not Given Rosuvastatin Calcium (Crestor) 10 mg PO HS [facility] Last Admin: 09/09/18 21:35 Dose: 10 mg Sitagliptin Phosphate (Januvia) 50 mg PO DAILY [facility] Last Admin: 09/10/18 10:21 Dose: 50 mg - Labs Labs: 09/10/18 06:30 09/10/18 06:30 - Constitutional Appears: Well - Head Exam Head Exam: ATRAUMATIC, NORMAL INSPECTION, NORMOCEPHALIC - Eye Exam Eye Exam: EOMI, Normal appearance, PERRL Pupil Exam: NORMAL ACCOMODATION, PERRL - ENT Exam ENT Exam: Mucous Membranes Moist, Normal Exam - Neck Exam Neck Exam: Full ROM, Normal Inspection. absent: Lymphadenopathy - Respiratory Exam Respiratory Exam: Decreased Breath Sounds - Cardiovascular Exam Cardiovascular Exam: REGULAR RHYTHM, +S1, +S2 - GI/Abdominal Exam GI & Abdominal Exam: Soft, Diminished Bowel Sounds - Rectal Exam Rectal Exam: Deferred - Neurological Exam Neurological Exam: Oriented x3 Assessment and Plan - Assessment and Plan (Free Text) Plan: Crestor Dextrose 5% Dextrose 50% Ecotrin GlucaGen diagnostic kit Glucophage [facility]ar Glucotrol Glutose 15 Heparin Januvia Maxipen NovoLog Percocet Tylenol Vancomycin Labs reviewed Vitals reviewed Medications reviewed Moderate complexity of care Plan discussed with patient
--- NOTE | 2018-09-10 18:04 | CP.PCM.PN ---
Subjective - Date & Time of Evaluation Date of Evaluation: 09/10/18 Time of Evaluation: 08:30 - Subjective Subjective: Patient examined today at bedside No nausea No vomiting No dizziness No shortness of breath No diarrhea No fever Objective - Vital Signs/Intake and Output Vital Signs (last 24 hours): Temp Pulse Resp BP Pulse Ox 97.3 F L 79 20 129/75 100 09/10/18 16:00 09/10/18 16:00 09/10/18 16:00 09/10/18 16:00 09/10/18 16:00 Intake and Output: 09/10/18 09/10/18 06:59 18:59 Intake Total 350 Balance 350 - Medications Medications: Current Medications Aspirin (Ecotrin) 81 mg PO DAILY [facility] Last Admin: 09/10/18 10:20 Dose: 81 mg Dextrose (Dextrose 50% Inj) 0 ml IV STAT PRN; Protocol PRN Reason: Hypoglycemia Protocol Dextrose (Glutose 15) 0 gm PO ONCE PRN; Protocol PRN Reason: Hypoglycemia Protocol Glipizide (Glucotrol) 5 mg PO DAILY [facility] Last Admin: 09/10/18 10:20 Dose: 5 mg Glucagon (Glucagen Diagnostic Kit) 0 mg IM STAT PRN; Protocol PRN Reason: Hypoglycemia Protocol Heparin Sodium (Porcine) (Heparin) 5,000 units SC Q12 [facility] Last Admin: 09/10/18 10:21 Dose: 5,000 units Dextrose (Dextrose 5% In Water 1000 Ml) 1,000 mls @ 0 mls/hr IV .Q0M PRN; Gallo col PRN Reason: Hypoglycemia Protocol Vancomycin/Sodium Chloride (Vancomycin 1 Gm/Ns 200 Ml) 1 gm in 200 mls @ 133 mls/hr IVPB Q24H [facility]; Protocol Stop: 09/15/18 14:01 Last Admin: 09/10/18 14:41 Dose: 133 mls/hr Insulin Aspart (Novolog) 0 unit SC ACHS [facility]; Protocol Last Admin: 09/10/18 16:23 Dose: Not Given Metformin HCl (Glucophage Xr) 500 mg PO BID [facility] Last Admin: 09/10/18 17:12 Dose: Not Given Rosuvastatin Calcium (Crestor) 10 mg PO HS [facility] Last Admin: 09/09/18 21:35 Dose: 10 mg Sitagliptin Phosphate (Januvia) 50 mg PO DAILY [facility] Last Admin: 09/10/18 10:21 Dose: 50 mg - Labs Labs: 09/10/18 06:30 09/10/18 06:30 - Constitutional Appears: Well - Head Exam Head Exam: ATRAUMATIC, NORMAL INSPECTION, NORMOCEPHALIC - Eye Exam Eye Exam: EOMI, Normal appearance, PERRL Pupil Exam: NORMAL ACCOMODATION, PERRL - ENT Exam ENT Exam: Mucous Membranes Moist, Normal Exam - Neck Exam Neck Exam: Full ROM, Normal Inspection. absent: Lymphadenopathy - Respiratory Exam Respiratory Exam: Decreased Breath Sounds - Cardiovascular Exam Cardiovascular Exam: REGULAR RHYTHM, +S1, +S2 - GI/Abdominal Exam GI & Abdominal Exam: Soft, Diminished Bowel Sounds - Rectal Exam Rectal Exam: Deferred - Neurological Exam Neurological Exam: Oriented x3 Assessment and Plan - Assessment and Plan (Free Text) Plan: Crestor Dextrose Ecotrin GlucaGen diagnostic kit Glucophage Exar Glucotrol Glutose 15 Heparin Januvia Maxipime Percocet NovoLog Tylenol Vancomycin Labs reviewed Vitals reviewed Medications reviewed Moderate complexity of the care Plan discussed with patient
[2018-09-11 07:39] LABS: BASO # 0.1 K/uL (0.0-0.2); EOS # 0.5 K/uL (0.0-0.7); EOS % 7.4 % (0.0-4.0); HEMOGLOBIN 10.6 g/dL (11.0-16.0); LYMPH % 29.1 % (20.0-40.0); MEAN CELL VOLUME 84.8 fL (81.0-99.0); MEAN CORPUSCULAR HEMOGLOBIN 28.7 pg (27.0-31.0); MEAN CORPUSCULAR HGB CONC 33.9 g/dL (33.0-37.0); MEAN PLATELET VOLUME 7.4 fL (7.2-11.7); MONO # 0.4 K/uL (0.0-0.8); MONO % 5.9 % (0.0-10.0); NEUT # 3.8 K/uL (1.8-7.0); NEUT % 56.6 % (50.0-75.0); NRBC % 0.1 % (0.0-2.0); RBC 3.7 Mil/uL (3.80-5.20); RED CELL DISTRIBUTION WIDTH 16.2 % (11.5-14.5); WHITE BLOOD COUNT 6.7 K/uL (4.8-10.8)
[2018-09-11] MEDS: (Novolog) Insulin Aspart, Recombinant 100 u/ml 10 ml vial SC SCH ×4 (07:43→21:45)
[2018-09-11 07:46] LABS: CALCIUM 9.7 mg/dl (8.6-10.4)
[2018-09-11 07:58] LABS: INR 1.1; PROTHROMBIN TIME 11.6 SECONDS (9.7-12.2)
[2018-09-11] MEDS: Dextrose 5%/0.45% NS 1,000 ML IV SCH ×2 (09:55→22:42)
[2018-09-11] MEDS ORDERED: ceFAZolin 1 gm in NS 0 GM/0 ML BAG IVPB ONE (12:06)
[2018-09-11] MEDS ORDERED: LIDOCAINE 2% PF (2ML) ONE (12:07)
[2018-09-11] MEDS ORDERED: Bupivacaine HCl 0.5% PF (10 ml) Inj ONE (12:07)
[2018-09-11] MEDS ORDERED: Midazolam 2 MG/2 ML VIAL ONE (12:12)
[2018-09-11] MEDS ORDERED: Propofol 10 mg/ml Inj (20 ML) ONE (12:12)
[2018-09-11] MEDS ORDERED: ePHEDrine 50 mg/ml Inj ONE (13:05)
--- NOTE | 2018-09-11 13:19 | PCM.SURG1 ---
Surgeon's Initial Post Op Note - Surgeon's Notes Surgeon: Dr. Murphy Mckay DPM Toy Department Manager: Dr. Breanne López PGY1, Dr. Sarahi Ramirez PGY2 Type of Anesthesia: IV Sedation, Local Anesthesia Administered By: Dr. Tidwell Pre-Operative Diagnosis: Left hallux dry gangrene Operative Findings: See dictation. I: Pre-op: 20cc of 1:1 mix of 0.5% marcaine plain, 1% lidocaine plain. M: Ann drain, 3-0 Prolene, 3-0 Vicryl Post-Operative Diagnosis: Same Operation Performed: Left hallux amputation with metatarsal head resection Specimen/Specimens Removed: Left hallux/metatarsal head Estimated Blood Loss: EBL {In ML}: 30 Blood Products Given: N/A Drains Used: No Drains Post-Op Condition: Good Date of Surgery/Procedure: 09/11/18 Time of Surgery/Procedure: 13:20
[2018-09-11] MEDS ORDERED: Oxycodone/Acetaminophen 5/325 mg Tab PO PRN ×2 (13:20→14:00)
[2018-09-11] MEDS ORDERED: HYDROmorphone 0.5 mg/0.5 ml ISec IVP PRN (13:37)
[2018-09-11] MEDS ORDERED: Lactated Ringer's 1,000 ML IV SCH (13:45)
--- NOTE | 2018-09-11 14:30 | CP.PCM.PN ---
Subjective - Date & Time of Evaluation Date of Evaluation: 09/11/18 Time of Evaluation: 07:00 - Subjective Subjective: seen and examined on rounds no new complaints [facility] rx in progress labs reviewed orders signed Objective - Vital Signs/Intake and Output Vital Signs (last 24 hours): Temp Pulse Resp BP Pulse Ox 97.5 F L 72 19 139/71 100 09/11/18 13:18 09/11/18 13:45 09/11/18 13:45 09/11/18 13:45 09/11/18 13:45 Intake and Output: 09/11/18 09/11/18 06:59 18:59 Intake Total 300 350 Balance 300 350 - Medications Medications: Current Medications Acetaminophen (Tylenol 325mg Tab) 650 mg PO Q6 PRN PRN Reason: Pain, Mild (1-3) Aspirin (Ecotrin) 81 mg PO DAILY [facility] Last Admin: 09/10/18 10:20 Dose: 81 mg Dextrose (Dextrose 50% Inj) 0 ml IV STAT PRN; Protocol PRN Reason: Hypoglycemia Protocol Dextrose (Glutose 15) 0 gm PO ONCE PRN; Protocol PRN Reason: Hypoglycemia Protocol Glipizide (Glucotrol) 5 mg PO DAILY [facility] Last Admin: 09/11/18 09:55 Dose: Not Given Glucagon (Glucagen Diagnostic Kit) 0 mg IM STAT PRN; Protocol PRN Reason: Hypoglycemia Protocol Heparin Sodium (Porcine) (Heparin) 5,000 units SC Q12 [facility] Last Admin: 09/10/18 21:33 Dose: 5,000 units Hydromorphone HCl (Dilaudid) 0.5 mg IVP Q10M PRN PRN Reason: Pain, moderate (4-7) Stop: 09/11/18 15:38 Dextrose (Dextrose 5% In Water 1000 Ml) 1,000 mls @ 0 mls/hr IV .Q0M PRN; Protocol PRN Reason: Hypoglycemia Protocol Vancomycin/Sodium Chloride (Vancomycin 1 Gm/Ns 200 Ml) 1 gm in 200 mls @ 133 mls/hr IVPB Q24H [facility]; Protocol Stop: 09/15/18 14:01 Last Admin: 09/10/18 14:41 Dose: 133 mls/hr Dextrose/Sodium Chloride (Dextrose 5%/0.45% Ns 1000 Ml) 1,000 mls @ 80 mls/hr IV .[id number] [facility] Last Admin: 09/11/18 09:55 Dose: 80 mls/hr Lactated Ringer's (Lactated Ringer's) 1,000 mls @ 100 mls/hr IV .Q10H [facility] Stop: 09/11/18 15:30 Cefepime HCl (Maxipime Iv 1 Gm Premix) 1 gm in 50 mls @ 100 mls/hr IVPB Q24H [facility]; Protocol Insulin Aspart (Novolog) 0 unit SC ACHS [facility]; Protocol Last Admin: 09/11/18 12:28 Dose: Not Given Metformin HCl (Glucophage Xr) 500 mg PO BID [facility] Last Admin: 09/11/18 09:55 Dose: Not Given Ondansetron HCl (Zofran Inj) 4 mg IVP ONCE PRN PRN Reason: Nausea/Vomiting Stop: 09/11/18 15:38 Oxycodone/Acetaminophen (Percocet 5/325 Mg Tab) 1 tab PO Q4H PRN PRN Reason: Pain, moderate (4-7) Stop: 09/14/18 13:21 Oxycodone/Acetaminophen (Percocet 5/325 Mg Tab) 2 tab PO Q4H PRN PRN Reason: Pain, severe (8-10) Stop: 09/14/18 14:01 Rosuvastatin Calcium (Crestor) 10 mg PO HS [facility] Last Admin: 09/10/18 21:33 Dose: 10 mg Sitagliptin Phosphate (Januvia) 50 mg PO DAILY [facility] Last Admin: 09/11/18 09:55 Dose: Not Given - Labs Labs: 09/11/18 07:25 09/11/18 07:20 PT 11.6 SECONDS (9.7-12.2) 09/11/18 07:25 INR 1.1 09/11/18 07:25 APTT 38.0 SECONDS (21-34) H 09/11/18 07:25 - Constitutional Appears: Well - Head Exam Head Exam: ATRAUMATIC, NORMAL INSPECTION, NORMOCEPHALIC - Eye Exam Eye Exam: EOMI, Normal appearance, PERRL Pupil Exam: NORMAL ACCOMODATION, PERRL - ENT Exam ENT Exam: Mucous Membranes Moist, Normal Exam - Neck Exam Neck Exam: Full ROM, Normal Inspection. absent: Lymphadenopathy - Respiratory Exam Respiratory Exam: Clear to Ausculation Bilateral, NORMAL BREATHING PATTERN - Cardiovascular Exam Cardiovascular Exam: REGULAR RHYTHM, +S1, +S2. absent: Murmur - GI/Abdominal Exam GI & Abdominal Exam: Soft, Normal Bowel Sounds. absent: Tenderness - Rectal Exam Rectal Exam: Deferred - Exam Exam: NORMAL INSPECTION - Extremities Exam Extremities Exam: Full ROM, Normal Capillary Refill, Normal Inspection. 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
--- NOTE | 2018-09-11 14:59 | RAD ---
Date of service: 09/11/2018 PROCEDURE: Left Foot Radiographs. HISTORY: s/p L hallux amputation COMPARISON: None. TECHNIQUE: 3 views obtained. FINDINGS: BONES: No acute fracture. Status post amputation 1st digit at distal aspect 1st metatarsal. No lytic or blastic osseous lesion. No osseous erosion or periosteal reaction. Status post ORIF distal fibular fracture. JOINTS: Normal. SOFT TISSUES: Normal. OTHER FINDINGS: None. IMPRESSION: Amputation 1st digit at distal aspect 1st metatarsal.
[2018-09-11] MEDS: Vancomycin 1 gm/NS 200 ml 1 GM/200 ML BAG IVPB SCH (15:08)
[2018-09-11] MEDS: Cefepime IV 1 gm in Dextrose 1 GM/50 ML BAG IVPB SCH ×2 (15:12→16:16)
--- NOTE | 2018-09-11 15:14 | CP.PCM.PN ---
Subjective - Date & Time of Evaluation Date of Evaluation: 09/11/18 Time of Evaluation: 14:00 - Subjective Subjective: patient examined today no nausea, no vomiting, no dizziness, no shortness of breath, no diarrhea, no fever Objective - Vital Signs/Intake and Output Vital Signs (last 24 hours): Temp Pulse Resp BP Pulse Ox 97.4 F L 71 15 158/87 H 100 09/11/18 14:15 09/11/18 14:15 09/11/18 14:15 09/11/18 14:15 09/11/18 14:15 Intake and Output: 09/11/18 09/11/18 06:59 18:59 Intake Total 300 350 Balance 300 350 - Medications Medications: Current Medications Acetaminophen (Tylenol 325mg Tab) 650 mg PO Q6 PRN PRN Reason: Pain, Mild (1-3) Aspirin (Ecotrin) 81 mg PO DAILY [facility] Last Admin: 09/10/18 10:20 Dose: 81 mg Dextrose (Dextrose 50% Inj) 0 ml IV STAT PRN; Protocol PRN Reason: Hypoglycemia Protocol Dextrose (Glutose 15) 0 gm PO ONCE PRN; Protocol PRN Reason: Hypoglycemia Protocol Glipizide (Glucotrol) 5 mg PO DAILY [facility] Last Admin: 09/11/18 09:55 Dose: Not Given Glucagon (Glucagen Diagnostic Kit) 0 mg IM STAT PRN; Protocol PRN Reason: Hypoglycemia Protocol Heparin Sodium (Porcine) (Heparin) 5,000 units SC Q12 [facility] Last Admin: 09/10/18 21:33 Dose: 5,000 units Hydromorphone HCl (Dilaudid) 0.5 mg IVP Q10M PRN PRN Reason: Pain, moderate (4-7) Stop: 09/11/18 15:38 Dextrose (Dextrose 5% In Water 1000 Ml) 1,000 mls @ 0 mls/hr IV .Q0M PRN; Protocol PRN Reason: Hypoglycemia Protocol Vancomycin/Sodium Chloride (Vancomycin 1 Gm/Ns 200 Ml) 1 gm in 200 mls @ 133 mls/hr IVPB Q24H [facility]; Protocol Stop: 09/15/18 14:01 Last Admin: 09/11/18 15:08 Dose: 133 mls/hr Dextrose/Sodium Chloride (Dextrose 5%/0.45% Ns 1000 Ml) 1,000 mls @ 80 mls/hr IV .[id number] [facility] Last Admin: 09/11/18 09:55 Dose: 80 mls/hr Lactated Ringer's (Lactated Ringer's) 1,000 mls @ 100 mls/hr IV .Q10H [facility] Stop: 09/11/18 15:30 Cefepime HCl (Maxipime Iv 1 Gm Premix) 1 gm in 50 mls @ 100 mls/hr IVPB Q24H [facility]; Protocol Last Admin: 09/11/18 15:12 Dose: Not Given Insulin Aspart (Novolog) 0 unit SC ACHS [facility]; Protocol Last Admin: 09/11/18 12:28 Dose: Not Given Metformin HCl (Glucophage Xr) 500 mg PO BID [facility] Last Admin: 09/11/18 09:55 Dose: Not Given Ondansetron HCl (Zofran Inj) 4 mg IVP ONCE PRN PRN Reason: Nausea/Vomiting Stop: 09/11/18 15:38 Oxycodone/Acetaminophen (Percocet 5/325 Mg Tab) 1 tab PO Q4H PRN PRN Reason: Pain, moderate (4-7) Stop: 09/14/18 13:21 Oxycodone/Acetaminophen (Percocet 5/325 Mg Tab) 2 tab PO Q4H PRN PRN Reason: Pain, severe (8-10) Stop: 09/14/18 14:01 Rosuvastatin Calcium (Crestor) 10 mg PO HS [facility] Last Admin: 09/10/18 21:33 Dose: 10 mg Sitagliptin Phosphate (Januvia) 50 mg PO DAILY [facility] Last Admin: 09/11/18 09:55 Dose: Not Given Sodium Polystyrene Sulfonate (Kayexalate) 15 gm PO ONCE ONE Stop: 09/11/18 15:13 - Labs Labs: 09/11/18 07:25 09/11/18 07:20 PT 11.6 SECONDS (9.7-12.2) 09/11/18 07:25 INR 1.1 09/11/18 07:25 APTT 38.0 SECONDS (21-34) H 09/11/18 07:25 - Constitutional Appears: Well - Head Exam Head Exam: ATRAUMATIC, NORMAL INSPECTION, NORMOCEPHALIC - Eye Exam Eye Exam: EOMI, Normal appearance, PERRL Pupil Exam: NORMAL ACCOMODATION, PERRL - ENT Exam ENT Exam: Mucous Membranes Moist, Normal Exam - Neck Exam Neck Exam: Full ROM, Normal Inspection. absent: Lymphadenopathy - Respiratory Exam Respiratory Exam: Decreased Breath Sounds - Cardiovascular Exam Cardiovascular Exam: REGULAR RHYTHM, +S1, +S2 - GI/Abdominal Exam GI & Abdominal Exam: Soft, Diminished Bowel Sounds - Rectal Exam Rectal Exam: Deferred - Neurological Exam Neurological Exam: Oriented x3 - Additional Findings Additional findings: patient with no nausea or vomiting patient s/p surgery patient is lethargic and groggy family at bedside diet resumed Assessment and Plan - Assessment and Plan (Free Text) Plan: s/p surgery today, left hallux amputation with metatarsal head resection on left side s/p cardiology s/p clearance 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
[2018-09-11 17:10] VITALS: RESP 20
[2018-09-12] MEDS: (Novolog) Insulin Aspart, Recombinant 100 u/ml 10 ml vial SC SCH ×4 (07:24→21:46)
[2018-09-12] MEDS: Dextrose 5%/0.45% NS 1,000 ML IV SCH ×2 (09:14→21:49)
[2018-09-12 11:39] LABS: CALCIUM 9.1 mg/dl (8.6-10.4)
[2018-09-12] MEDS: Cefepime IV 1 gm in Dextrose 1 GM/50 ML BAG IVPB SCH (13:00)
[2018-09-12] MEDS: Vancomycin 1 gm/NS 200 ml 1 GM/200 ML BAG IVPB SCH (13:02)
--- NOTE | 2018-09-12 19:02 | CP.PCM.PN ---
Subjective - Date & Time of Evaluation Date of Evaluation: 09/12/18 Time of Evaluation: 18:59 - Subjective Subjective: Podiatry progress note - Dr. Mckay 83F seen and evaluated at bedside with Dr. Mckay this AM POD 1 s/p left first ray amputation. Resting comfortably. Denies pain to the left foot or LE. Denies any events overnight and states no strikethrough or bleeding through dressing. Denies n/v/f/c/sob and has no other acute complaints. Objective - Vital Signs/Intake and Output Vital Signs (last 24 hours): Temp Pulse Resp BP Pulse Ox 98.7 F 82 20 147/76 97 09/12/18 16:00 09/12/18 16:00 09/12/18 16:00 09/12/18 16:00 09/12/18 16:00 Intake and Output: 09/12/18 09/12/18 06:59 18:59 Intake Total 500 890 Balance 500 890 - Medications Medications: Current Medications Acetaminophen (Tylenol 325mg Tab) 650 mg PO Q6 PRN PRN Reason: Pain, Mild (1-3) Aspirin (Ecotrin) 81 mg PO DAILY [facility] Last Admin: 09/12/18 09:17 Dose: 81 mg Dextrose (Dextrose 50% Inj) 0 ml IV STAT PRN; Protocol PRN Reason: Hypoglycemia Protocol Dextrose (Glutose 15) 0 gm PO ONCE PRN; Protocol PRN Reason: Hypoglycemia Protocol Glipizide (Glucotrol) 5 mg PO DAILY [facility] Last Admin: 09/12/18 09:17 Dose: 5 mg Glucagon (Glucagen Diagnostic Kit) 0 mg IM STAT PRN; Protocol PRN Reason: Hypoglycemia Protocol Heparin Sodium (Porcine) (Heparin) 5,000 units SC Q12 [facility] Last Admin: 09/12/18 09:18 Dose: 5,000 units Vancomycin/Sodium Chloride (Vancomycin 1 Gm/Ns 200 Ml) 1 gm in 200 mls @ 133 mls/hr IVPB Q24H [facility]; Protocol Stop: 09/15/18 14:01 Last Admin: 09/12/18 13:02 Dose: 133 mls/hr Dextrose/Sodium Chloride (Dextrose 5%/0.45% Ns 1000 Ml) 1,000 mls @ 80 mls/hr IV .[id number] [facility] Last Admin: 09/12/18 09:14 Dose: 80 mls/hr Cefepime HCl (Maxipime Iv 1 Gm Premix) 1 gm in 50 mls @ 100 mls/hr IVPB Q24H [facility]; Protocol Last Admin: 09/12/18 13:00 Dose: 100 mls/hr Insulin Aspart (Novolog) 0 unit SC ACHS [facility]; Protocol Last Admin: 09/12/18 17:38 Dose: Not Given Metformin HCl (Glucophage Xr) 500 mg PO BID [facility] Last Admin: 09/12/18 17:37 Dose: 500 mg Oxycodone/Acetaminophen (Percocet 5/325 Mg Tab) 1 tab PO Q4H PRN PRN Reason: Pain, moderate (4-7) Stop: 09/14/18 13:21 Oxycodone/Acetaminophen (Percocet 5/325 Mg Tab) 2 tab PO Q4H PRN PRN Reason: Pain, severe (8-10) Stop: 09/14/18 14:01 Rosuvastatin Calcium (Crestor) 10 mg PO HS [facility] Last Admin: 09/11/18 21:45 Dose: 10 mg Sitagliptin Phosphate (Januvia) 50 mg PO DAILY [facility] Last Admin: 09/12/18 09:17 Dose: 50 mg - Labs Labs: 09/11/18 07:25 09/12/18 11:15 PT 11.6 SECONDS (9.7-12.2) 09/11/18 07:25 INR 1.1 09/11/18 07:25 APTT 38.0 SECONDS (21-34) H 09/11/18 07:25 - Constitutional Appears: Non-toxic - Head Exam Head Exam: ATRAUMATIC - Extremities Exam Additional comments: LLE focused exam VASC: DP and PT pulses palpable 2/4; cap refill approx 3 seconds to digits 2-5; temp gradient warm to warm from proximal to distal DERM: left hallux amputation site appears well coapted with no signs of dehiscence or infection, no bleeding, pus, or drainage from site, no malodor, drain in place with no active discharge; site warm and dry, minimal periincision erythema, no swelling ORTHO: hallux amputation noted, no pain upon palpation of incision site NEURO: gross and protective sensation diminished - Neurological Exam Neurological Exam: Alert, Awake, Oriented x3 - Psychiatric Exam Psychiatric exam: Normal Affect Assessment and Plan - Assessment and Plan (Free Text) Assessment: 83F POD 1 left first ray amputation Plan: Patient seen and evaluated with Dr. Mckay VSMarlys Dressing taken down, surgical site cleansed with sterile saline, drain pulled, site dressed with betadine, telfa, and dry sterile dressing Post op x-rays reviewed Surgical pathology pending Continue abx and pain control Strict nonweightbearing to LLE Use commode at bedside Will continue to follow
--- NOTE | 2018-09-12 20:02 | CP.PCM.PN ---
Subjective - Date & Time of Evaluation Date of Evaluation: 09/12/18 - Subjective Subjective: patient examined today no nausea no vomiting no dizziness no fever no shortness of breath no diarrhea Objective - Vital Signs/Intake and Output Vital Signs (last 24 hours): Temp Pulse Resp BP Pulse Ox 98.7 F 82 20 147/76 97 09/12/18 16:00 09/12/18 16:00 09/12/18 16:00 09/12/18 16:00 09/12/18 16:00 Intake and Output: 09/12/18 09/13/18 18:59 06:59 Intake Total 890 Balance 890 - Medications Medications: Current Medications Acetaminophen (Tylenol 325mg Tab) 650 mg PO Q6 PRN PRN Reason: Pain, Mild (1-3) Aspirin (Ecotrin) 81 mg PO DAILY [facility] Last Admin: 09/12/18 09:17 Dose: 81 mg Dextrose (Dextrose 50% Inj) 0 ml IV STAT PRN; Protocol PRN Reason: Hypoglycemia Protocol Dextrose (Glutose 15) 0 gm PO ONCE PRN; Protocol PRN Reason: Hypoglycemia Protocol Glipizide (Glucotrol) 5 mg PO DAILY [facility] Last Admin: 09/12/18 09:17 Dose: 5 mg Glucagon (Glucagen Diagnostic Kit) 0 mg IM STAT PRN; Protocol PRN Reason: Hypoglycemia Protocol Heparin Sodium (Porcine) (Heparin) 5,000 units SC Q12 [facility] Last Admin: 09/12/18 09:18 Dose: 5,000 units Vancomycin/Sodium Chloride (Vancomycin 1 Gm/Ns 200 Ml) 1 gm in 200 mls @ 133 mls/hr IVPB Q24H [facility]; Protocol Stop: 09/15/18 14:01 Last Admin: 09/12/18 13:02 Dose: 133 mls/hr Dextrose/Sodium Chloride (Dextrose 5%/0.45% Ns 1000 Ml) 1,000 mls @ 80 mls/hr IV .[id number] [facility] Last Admin: 09/12/18 09:14 Dose: 80 mls/hr Cefepime HCl (Maxipime Iv 1 Gm Premix) 1 gm in 50 mls @ 100 mls/hr IVPB Q24H [facility]; Protocol Last Admin: 09/12/18 13:00 Dose: 100 mls/hr Insulin Aspart (Novolog) 0 unit SC ACHS [facility]; Protocol Last Admin: 09/12/18 17:38 Dose: Not Given Metformin HCl (Glucophage Xr) 500 mg PO BID [facility] Last Admin: 09/12/18 17:37 Dose: 500 mg Oxycodone/Acetaminophen (Percocet 5/325 Mg Tab) 1 tab PO Q4H PRN PRN Reason: Pain, moderate (4-7) Stop: 09/14/18 13:21 Oxycodone/Acetaminophen (Percocet 5/325 Mg Tab) 2 tab PO Q4H PRN PRN Reason: Pain, severe (8-10) Stop: 09/14/18 14:01 Rosuvastatin Calcium (Crestor) 10 mg PO HS [facility] Last Admin: 09/11/18 21:45 Dose: 10 mg Sitagliptin Phosphate (Januvia) 50 mg PO DAILY [facility] Last Admin: 09/12/18 09:17 Dose: 50 mg - Labs Labs: 09/11/18 07:25 09/12/18 11:15 PT 11.6 SECONDS (9.7-12.2) 09/11/18 07:25 INR 1.1 09/11/18 07:25 APTT 38.0 SECONDS (21-34) H 09/11/18 07:25 - Constitutional Appears: Well - Head Exam Head Exam: ATRAUMATIC, NORMAL INSPECTION, NORMOCEPHALIC - Eye Exam Eye Exam: EOMI, Normal appearance, PERRL Pupil Exam: NORMAL ACCOMODATION, PERRL - ENT Exam ENT Exam: Mucous Membranes Moist, Normal Exam - Neck Exam Neck Exam: Full ROM, Normal Inspection. absent: Lymphadenopathy - Respiratory Exam Respiratory Exam: Decreased Breath Sounds - Cardiovascular Exam Cardiovascular Exam: REGULAR RHYTHM, +S1, +S2 - GI/Abdominal Exam GI & Abdominal Exam: Soft, Diminished Bowel Sounds - Rectal Exam Rectal Exam: Deferred - Neurological Exam Neurological Exam: Oriented x3 Assessment and Plan - Assessment and Plan (Free Text) Plan: plan discussed with patient medications reviewed crestor dextrose 5% [id number]% ecotrin glucagen diagnostic kit glucophage xr glucotrol glutose 15 porcine heparin januvia maxipime novolog percocet tylenol vancomycin labs reviewed vitals reviewed modern complexity of care
[2018-09-13] MEDS: (Novolog) Insulin Aspart, Recombinant 100 u/ml 10 ml vial SC SCH ×4 (07:45→21:20)
[2018-09-13] MEDS: Dextrose 5%/0.45% NS 1,000 ML IV SCH ×2 (10:47→23:56)
--- NOTE | 2018-09-13 11:31 | CP.PCM.PN ---
Subjective - Date & Time of Evaluation Date of Evaluation: 09/13/18 Time of Evaluation: 11:30 - Subjective Subjective: Podiatry progress note - Dr. Mckay 83F seen and evaluated at bedside with Dr. Mckay this AM POD 2 s/p left first ray amputation. Resting comfortably. Denies pain to the left foot or LE. Denies any events overnight and states no strikethrough or bleeding through dressing. Denies n/v/f/c/sob and has no other acute complaints. Objective - Vital Signs/Intake and Output Vital Signs (last 24 hours): Temp Pulse Resp BP Pulse Ox 98.4 F 80 20 142/62 98 09/13/18 08:39 09/13/18 08:39 09/13/18 08:39 09/13/18 08:39 09/13/18 08:39 Intake and Output: 09/13/18 09/13/18 06:59 18:59 Intake Total 1000 Balance 1000 - Medications Medications: Current Medications Acetaminophen (Tylenol 325mg Tab) 650 mg PO Q6 PRN PRN Reason: Pain, Mild (1-3) Aspirin (Ecotrin) 81 mg PO DAILY [facility] Last Admin: 09/13/18 09:11 Dose: 81 mg Dextrose (Dextrose 50% Inj) 0 ml IV STAT PRN; Protocol PRN Reason: Hypoglycemia Protocol Dextrose (Glutose 15) 0 gm PO ONCE PRN; Protocol PRN Reason: Hypoglycemia Protocol Glipizide (Glucotrol) 5 mg PO DAILY [facility] Last Admin: 09/13/18 09:11 Dose: 5 mg Glucagon (Glucagen Diagnostic Kit) 0 mg IM STAT PRN; Protocol PRN Reason: Hypoglycemia Protocol Heparin Sodium (Porcine) (Heparin) 5,000 units SC Q12 [facility] Last Admin: 09/13/18 09:12 Dose: 5,000 units Vancomycin/Sodium Chloride (Vancomycin 1 Gm/Ns 200 Ml) 1 gm in 200 mls @ 133 mls/hr IVPB Q24H [facility]; Protocol Stop: 09/15/18 14:01 Last Admin: 09/12/18 13:02 Dose: 133 mls/hr Dextrose/Sodium Chloride (Dextrose 5%/0.45% Ns 1000 Ml) 1,000 mls @ 80 mls/hr IV .[id number] [facility] Last Admin: 09/13/18 10:47 Dose: 80 mls/hr Cefepime HCl (Maxipime Iv 1 Gm Premix) 1 gm in 50 mls @ 100 mls/hr IVPB Q24H [facility]; Protocol Last Admin: 09/12/18 13:00 Dose: 100 mls/hr Insulin Aspart (Novolog) 0 unit SC ACHS [facility]; Protocol Last Admin: 09/13/18 07:45 Dose: Not Given Metformin HCl (Glucophage Xr) 500 mg PO BID [facility] Last Admin: 09/13/18 09:11 Dose: 500 mg Oxycodone/Acetaminophen (Percocet 5/325 Mg Tab) 1 tab PO Q4H PRN PRN Reason: Pain, moderate (4-7) Stop: 09/14/18 13:21 Oxycodone/Acetaminophen (Percocet 5/325 Mg Tab) 2 tab PO Q4H PRN PRN Reason: Pain, severe (8-10) Stop: 09/14/18 14:01 Rosuvastatin Calcium (Crestor) 10 mg PO HS [facility] Last Admin: 09/12/18 21:45 Dose: 10 mg Sitagliptin Phosphate (Januvia) 50 mg PO DAILY [facility] Last Admin: 09/13/18 09:11 Dose: 50 mg - Labs Labs: 09/11/18 07:25 09/12/18 11:15 PT 11.6 SECONDS (9.7-12.2) 09/11/18 07:25 INR 1.1 09/11/18 07:25 APTT 38.0 SECONDS (21-34) H 09/11/18 07:25 - Constitutional Appears: Non-toxic - Head Exam Head Exam: ATRAUMATIC - Extremities Exam Additional comments: LLE focused exam VASC: DP and PT pulses palpable 2/4; cap refill approx 3 seconds to digits 2-5; temp gradient warm to warm from proximal to distal DERM: left hallux amputation site appears well coapted with no signs of dehiscence or infection, no bleeding, pus, or drainage from site, no malodor, drain in place with no active discharge; site warm and dry, minimal periincision erythema, no swelling ORTHO: hallux amputation noted, no pain upon palpation of incision site NEURO: gross and protective sensation diminished - Neurological Exam Neurological Exam: Alert, Awake, Oriented x3 - Psychiatric Exam Psychiatric exam: Normal Affect Assessment and Plan - Assessment and Plan (Free Text) Assessment: 83F POD 2 left first ray amputation Plan: Patient seen and evaluated with Dr. Mckay VSMarlys Dressing taken down, surgical site cleansed with sterile saline, dressed with betadine, telfa, and dry sterile dressing Post op x-rays reviewed Surgical pathology pending Continue abx and pain control Strict nonweightbearing to LLE Use commode at bedside Will continue to follow
[2018-09-13] MEDS: Cefepime IV 1 gm in Dextrose 1 GM/50 ML BAG IVPB SCH (13:14)
[2018-09-13] MEDS: Vancomycin 1 gm/NS 200 ml 1 GM/200 ML BAG IVPB SCH (14:00)
--- NOTE | 2018-09-13 15:07 | CP.PCM.PN ---
Subjective - Date & Time of Evaluation Date of Evaluation: 09/13/18 Time of Evaluation: 08:00 - Subjective Subjective: awake and alert no new complaints interim events noted patient examined entries reviewed labs reviewed orders signed Objective - Vital Signs/Intake and Output Vital Signs (last 24 hours): Temp Pulse Resp BP Pulse Ox 98.4 F 80 20 142/62 98 09/13/18 08:39 09/13/18 08:39 09/13/18 08:39 09/13/18 08:39 09/13/18 08:39 Intake and Output: 09/13/18 09/13/18 06:59 18:59 Intake Total 1000 900 Balance 1000 900 - Medications Medications: Current Medications Acetaminophen (Tylenol 325mg Tab) 650 mg PO Q6 PRN PRN Reason: Pain, Mild (1-3) Aspirin (Ecotrin) 81 mg PO DAILY [facility] Last Admin: 09/13/18 09:11 Dose: 81 mg Dextrose (Dextrose 50% Inj) 0 ml IV STAT PRN; Protocol PRN Reason: Hypoglycemia Protocol Dextrose (Glutose 15) 0 gm PO ONCE PRN; Protocol PRN Reason: Hypoglycemia Protocol Glipizide (Glucotrol) 5 mg PO DAILY [facility] Last Admin: 09/13/18 09:11 Dose: 5 mg Glucagon (Glucagen Diagnostic Kit) 0 mg IM STAT PRN; Protocol PRN Reason: Hypoglycemia Protocol Heparin Sodium (Porcine) (Heparin) 5,000 units SC Q12 [facility] Last Admin: 09/13/18 09:12 Dose: 5,000 units Vancomycin/Sodium Chloride (Vancomycin 1 Gm/Ns 200 Ml) 1 gm in 200 mls @ 133 mls/hr IVPB Q24H [facility]; Protocol Stop: 09/15/18 14:01 Last Admin: 09/13/18 14:00 Dose: 133 mls/hr Dextrose/Sodium Chloride (Dextrose 5%/0.45% Ns 1000 Ml) 1,000 mls @ 80 mls/hr IV .[id number] [facility] Last Admin: 09/13/18 10:47 Dose: 80 mls/hr Cefepime HCl (Maxipime Iv 1 Gm Premix) 1 gm in 50 mls @ 100 mls/hr IVPB Q24H [facility]; Protocol Last Admin: 09/13/18 13:14 Dose: 100 mls/hr Insulin Aspart (Novolog) 0 unit SC ACHS [facility]; Protocol Last Admin: 09/13/18 11:43 Dose: 2 units Metformin HCl (Glucophage Xr) 500 mg PO BID [facility] Last Admin: 09/13/18 09:11 Dose: 500 mg Oxycodone/Acetaminophen (Percocet 5/325 Mg Tab) 1 tab PO Q4H PRN PRN Reason: Pain, moderate (4-7) Stop: 09/14/18 13:21 Oxycodone/Acetaminophen (Percocet 5/325 Mg Tab) 2 tab PO Q4H PRN PRN Reason: Pain, severe (8-10) Stop: 09/14/18 14:01 Rosuvastatin Calcium (Crestor) 10 mg PO HS [facility] Last Admin: 09/12/18 21:45 Dose: 10 mg Sitagliptin Phosphate (Januvia) 50 mg PO DAILY [facility] Last Admin: 09/13/18 09:11 Dose: 50 mg - Labs Labs: 09/11/18 07:25 09/12/18 11:15 PT 11.6 SECONDS (9.7-12.2) 09/11/18 07:25 INR 1.1 09/11/18 07:25 APTT 38.0 SECONDS (21-34) H 09/11/18 07:25 - Constitutional Appears: Non-toxic, No Acute Distress, Chronically Ill - Head Exam Head Exam: ATRAUMATIC, NORMAL INSPECTION, NORMOCEPHALIC - Eye Exam Eye Exam: EOMI, Normal appearance, PERRL Pupil Exam: NORMAL ACCOMODATION, PERRL - ENT Exam ENT Exam: Mucous Membranes Moist, Normal Exam - Neck Exam Neck Exam: Full ROM, Normal Inspection. absent: Lymphadenopathy - Respiratory Exam Respiratory Exam: Clear to Ausculation Bilateral, NORMAL BREATHING PATTERN - Cardiovascular Exam Cardiovascular Exam: REGULAR RHYTHM, +S1, +S2. absent: Murmur - GI/Abdominal Exam GI & Abdominal Exam: Soft, Normal Bowel Sounds. absent: Tenderness - Rectal Exam Rectal Exam: Deferred - Exam Exam: NORMAL INSPECTION - Extremities Exam Extremities Exam: Full ROM, Normal Capillary Refill, Normal Inspection. absent: Joint Swelling, Pedal Edema - Back Exam Back Exam: NORMAL INSPECTION - Neurological Exam Neurological Exam: Alert, Awake, CN II-XII Intact, Oriented x3. 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
--- NOTE | 2018-09-13 19:11 | CP.PCM.PN ---
Subjective - Date & Time of Evaluation Date of Evaluation: 09/13/18 Time of Evaluation: 08:30 - Subjective Subjective: Alert awake oriented x3 History obtained through the lumber straightened ID and podiatry not appreciated No nausea no vomiting Objective - Vital Signs/Intake and Output Vital Signs (last 24 hours): Temp Pulse Resp BP Pulse Ox 98.9 F 80 20 136/72 97 09/13/18 16:00 09/13/18 16:00 09/13/18 16:00 09/13/18 16:00 09/13/18 16:00 Intake and Output: 09/13/18 09/14/18 18:59 06:59 Intake Total 900 Balance 900 - Medications Medications: Current Medications Acetaminophen (Tylenol 325mg Tab) 650 mg PO Q6 PRN PRN Reason: Pain, Mild (1-3) Aspirin (Ecotrin) 81 mg PO DAILY [facility] Last Admin: 09/13/18 09:11 Dose: 81 mg Dextrose (Dextrose 50% Inj) 0 ml IV STAT PRN; Protocol PRN Reason: Hypoglycemia Protocol Dextrose (Glutose 15) 0 gm PO ONCE PRN; Protocol PRN Reason: Hypoglycemia Protocol Glipizide (Glucotrol) 5 mg PO DAILY [facility] Last Admin: 09/13/18 09:11 Dose: 5 mg Glucagon (Glucagen Diagnostic Kit) 0 mg IM STAT PRN; Protocol PRN Reason: Hypoglycemia Protocol Heparin Sodium (Porcine) (Heparin) 5,000 units SC Q12 [facility] Last Admin: 09/13/18 09:12 Dose: 5,000 units Vancomycin/Sodium Chloride (Vancomycin 1 Gm/Ns 200 Ml) 1 gm in 200 mls @ 133 mls/hr IVPB Q24H [facility]; Protocol Stop: 09/15/18 14:01 Last Admin: 09/13/18 14:00 Dose: 133 mls/hr Dextrose/Sodium Chloride (Dextrose 5%/0.45% Ns 1000 Ml) 1,000 mls @ 80 mls/hr IV .[id number] [facility] Last Admin: 09/13/18 10:47 Dose: 80 mls/hr Cefepime HCl (Maxipime Iv 1 Gm Premix) 1 gm in 50 mls @ 100 mls/hr IVPB Q24H [facility]; Protocol Last Admin: 09/13/18 13:14 Dose: 100 mls/hr Insulin Aspart (Novolog) 0 unit SC ACHS [facility]; Protocol Last Admin: 09/13/18 17:37 Dose: Not Given Metformin HCl (Glucophage Xr) 500 mg PO BID [facility] Last Admin: 09/13/18 17:36 Dose: 500 mg Oxycodone/Acetaminophen (Percocet 5/325 Mg Tab) 1 tab PO Q4H PRN PRN Reason: Pain, moderate (4-7) Stop: 09/14/18 13:21 Oxycodone/Acetaminophen (Percocet 5/325 Mg Tab) 2 tab PO Q4H PRN PRN Reason: Pain, severe (8-10) Stop: 09/14/18 14:01 Rosuvastatin Calcium (Crestor) 10 mg PO HS [facility] Last Admin: 09/12/18 21:45 Dose: 10 mg Sitagliptin Phosphate (Januvia) 50 mg PO DAILY [facility] Last Admin: 09/13/18 09:11 Dose: 50 mg - Labs Labs: 09/11/18 07:25 09/12/18 11:15 PT 11.6 SECONDS (9.7-12.2) 09/11/18 07:25 INR 1.1 09/11/18 07:25 APTT 38.0 SECONDS (21-34) H 09/11/18 07:25 - Constitutional Appears: Well - Head Exam Head Exam: ATRAUMATIC, NORMAL INSPECTION, NORMOCEPHALIC - Eye Exam Eye Exam: EOMI, Normal appearance, PERRL Pupil Exam: NORMAL ACCOMODATION, PERRL - ENT Exam ENT Exam: Mucous Membranes Moist, Normal Exam - Neck Exam Neck Exam: Full ROM, Normal Inspection. 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 Mckay follow-up Status post POD day 2 for left first toe amputations Dressing done yesterday I saw the dressing as podiatry resident was happened to be there Wound care Postop x-rays reviewed Surgical pathology pending Strict not waiting not weightbearing to left lower extremity Use commode at the bedside Possible discharge whenever he is ready
[2018-09-14] MEDS: (Novolog) Insulin Aspart, Recombinant 100 u/ml 10 ml vial SC SCH ×3 (07:37→16:54)
--- NOTE | 2018-09-14 11:30 | CP.PCM.PN ---
Subjective - Date & Time of Evaluation Date of Evaluation: 09/14/18 Time of Evaluation: 11:30 - Subjective Subjective: Podiatry progress note - Dr. Mckay 83F seen and evaluated at bedside with Dr. Mckay this AM POD #3 s/p left first ray amputation. NAD. No acute events overnight. Patient offers no new complaints to left lower extremity; denies pain and has been compliant with strict NWB LLE orders. Dressing clean/dry/intact. Denies n/v/f/d/c/sob/arreola/cp. Resting comfortably. Denies pain to the left foot or LE. Denies any events overnight and states no strikethrough or bleeding through dressing. Denies n/v/f/c/sob and has no other acute complaints. Objective - Vital Signs/Intake and Output Vital Signs (last 24 hours): Temp Pulse Resp BP Pulse Ox 97.9 F 76 20 160/71 H 98 09/14/18 07:00 09/14/18 07:00 09/14/18 07:00 09/14/18 07:00 09/14/18 07:00 Intake and Output: 09/14/18 09/14/18 06:59 18:59 Intake Total 250 Balance 250 - Medications Medications: Current Medications Acetaminophen (Tylenol 325mg Tab) 650 mg PO Q6 PRN PRN Reason: Pain, Mild (1-3) Aspirin (Ecotrin) 81 mg PO DAILY [facility] Last Admin: 09/14/18 09:21 Dose: 81 mg Dextrose (Dextrose 50% Inj) 0 ml IV STAT PRN; Protocol PRN Reason: Hypoglycemia Protocol Dextrose (Glutose 15) 0 gm PO ONCE PRN; Protocol PRN Reason: Hypoglycemia Protocol Glipizide (Glucotrol) 5 mg PO DAILY [facility] Last Admin: 09/14/18 09:21 Dose: 5 mg Glucagon (Glucagen Diagnostic Kit) 0 mg IM STAT PRN; Protocol PRN Reason: Hypoglycemia Protocol Heparin Sodium (Porcine) (Heparin) 5,000 units SC Q12 [facility] Last Admin: 09/14/18 09:21 Dose: 5,000 units Vancomycin/Sodium Chloride (Vancomycin 1 Gm/Ns 200 Ml) 1 gm in 200 mls @ 133 mls/hr IVPB Q24H [facility]; Protocol Stop: 09/15/18 14:01 Last Admin: 09/13/18 14:00 Dose: 133 mls/hr Cefepime HCl (Maxipime Iv 1 Gm Premix) 1 gm in 50 mls @ 100 mls/hr IVPB Q24H [facility]; Protocol Last Admin: 09/13/18 13:14 Dose: 100 mls/hr Insulin Aspart (Novolog) 0 unit SC ACHS [facility]; Protocol Last Admin: 09/14/18 07:37 Dose: Not Given Metformin HCl (Glucophage Xr) 500 mg PO BID [facility] Last Admin: 09/14/18 09:21 Dose: 500 mg Oxycodone/Acetaminophen (Percocet 5/325 Mg Tab) 1 tab PO Q4H PRN PRN Reason: Pain, moderate (4-7) Stop: 09/14/18 13:21 Oxycodone/Acetaminophen (Percocet 5/325 Mg Tab) 2 tab PO Q4H PRN PRN Reason: Pain, severe (8-10) Stop: 09/14/18 14:01 Rosuvastatin Calcium (Crestor) 10 mg PO HS [facility] Last Admin: 09/13/18 21:19 Dose: 10 mg Sitagliptin Phosphate (Januvia) 50 mg PO DAILY [facility] Last Admin: 09/14/18 09:21 Dose: 50 mg - Labs Labs: 09/11/18 07:25 09/12/18 11:15 PT 11.6 SECONDS (9.7-12.2) 09/11/18 07:25 INR 1.1 09/11/18 07:25 APTT 38.0 SECONDS (21-34) H 09/11/18 07:25 - Constitutional Appears: Non-toxic, No Acute Distress - Extremities Exam Additional comments: LLE focused exam VASC: DP and PT pulses palpable 2/4; cap refill approx 3 seconds to digits 2-5; temp gradient warm to warm from proximal to distal; minimal periwound edema pre sent DERM: left hallux amputation site appears well coapted with sutures intact and no signs of dehiscence or infection, no bleeding, pus, or drainage from site, no malodor; site warm and dry, minimal periwound erythema ORTHO: hallux amputation noted, no pain upon palpation of incision site NEURO: gross and protective sensation diminished - Neurological Exam Neurological Exam: Alert, Awake, Oriented x3 - Psychiatric Exam Psychiatric exam: Normal Affect, Normal Mood Assessment and Plan - Assessment and Plan (Free Text) Assessment: 83F POD #3 left partial first ray amputation (DOS 09/11/18) Plan: Patient seen and evaluated Discussed with attending, Dr. Mckay VSS Continue local wound care: betadine, telfa, dry sterile dressing Awaiting intra-op pathology report Continue abx per ID - Cefepime, Vancomycin Activity: Strict NWB LLE, OOB to bedside commode only Podiatry will continue to follow
[2018-09-14] MEDS: Cefepime IV 1 gm in Dextrose 1 GM/50 ML BAG IVPB SCH (14:07)
[2018-09-14] MEDS: Vancomycin 1 gm/NS 200 ml 1 GM/200 ML BAG IVPB SCH (14:08)
[2018-09-14 16:56] VITALS: BP 153/72; PULSE 80; TEMP 98.1; O2SAT 99
--- NOTE | 2018-09-14 17:59 | CP.PCM.PN ---
Subjective - Date & Time of Evaluation Date of Evaluation: 09/14/18 Time of Evaluation: 17:59 - Subjective Subjective: alert, awake, no acute pain to LLE, NAD. Objective - Vital Signs/Intake and Output Vital Signs (last 24 hours): Temp Pulse Resp BP Pulse Ox 98.1 F 80 20 153/72 H 99 09/14/18 16:00 09/14/18 16:00 09/14/18 16:00 09/14/18 16:00 09/14/18 16:00 Intake and Output: 09/14/18 09/14/18 06:59 18:59 Intake Total 250 1150 Balance 250 1150 - Medications Medications: Current Medications Acetaminophen (Tylenol 325mg Tab) 650 mg PO Q6 PRN PRN Reason: Pain, Mild (1-3) Aspirin (Ecotrin) 81 mg PO DAILY [facility] Last Admin: 09/14/18 09:21 Dose: 81 mg Dextrose (Dextrose 50% Inj) 0 ml IV STAT PRN; Protocol PRN Reason: Hypoglycemia Protocol Dextrose (Glutose 15) 0 gm PO ONCE PRN; Protocol PRN Reason: Hypoglycemia Protocol Glipizide (Glucotrol) 5 mg PO DAILY [facility] Last Admin: 09/14/18 09:21 Dose: 5 mg Glucagon (Glucagen Diagnostic Kit) 0 mg IM STAT PRN; Protocol PRN Reason: Hypoglycemia Protocol Heparin Sodium (Porcine) (Heparin) 5,000 units SC Q12 [facility] Last Admin: 09/14/18 09:21 Dose: 5,000 units Vancomycin/Sodium Chloride (Vancomycin 1 Gm/Ns 200 Ml) 1 gm in 200 mls @ 133 mls/hr IVPB Q24H [facility]; Protocol Stop: 09/15/18 14:01 Last Admin: 09/14/18 14:08 Dose: 133 mls/hr Cefepime HCl (Maxipime Iv 1 Gm Premix) 1 gm in 50 mls @ 100 mls/hr IVPB Q24H [facility]; Protocol Last Admin: 09/14/18 14:07 Dose: 100 mls/hr Insulin Aspart (Novolog) 0 unit SC ACHS [facility]; Protocol Last Admin: 09/14/18 16:54 Dose: Not Given Metformin HCl (Glucophage Xr) 500 mg PO BID [facility] Last Admin: 09/14/18 17:20 Dose: Not Given Rosuvastatin Calcium (Crestor) 10 mg PO HS [facility] Last Admin: 09/13/18 21:19 Dose: 10 mg Sitagliptin Phosphate (Januvia) 50 mg PO DAILY [facility] Last Admin: 09/14/18 09:21 Dose: 50 mg - Labs Labs: 09/11/18 07:25 09/12/18 11:15 PT 11.6 SECONDS (9.7-12.2) 09/11/18 07:25 INR 1.1 09/11/18 07:25 APTT 38.0 SECONDS (21-34) H 09/11/18 07:25 Assessment and Plan - Assessment and Plan (Free Text) Assessment: Patient s/p left toe amputation, seen and examined. Alert, awake, denies acute pain to the left leg. Discussed with DR Avtar Ramirez, plan to discharge to [facility] today, to continue with 5 more days of iv antibiotics.
--- NOTE | 2018-09-14 18:35 | CP.PCM.PN ---
Subjective - Date & Time of Evaluation Date of Evaluation: 09/14/18 - Subjective Subjective: patient examined today no nausea no vomiting no diarrhea no fever denies sob Objective - Vital Signs/Intake and Output Vital Signs (last 24 hours): Temp Pulse Resp BP Pulse Ox 98.1 F 80 20 153/72 H 99 09/14/18 16:00 09/14/18 16:00 09/14/18 16:00 09/14/18 16:00 09/14/18 16:00 Intake and Output: 09/14/18 09/14/18 06:59 18:59 Intake Total 250 1150 Balance 250 1150 - Medications Medications: Current Medications Acetaminophen (Tylenol 325mg Tab) 650 mg PO Q6 PRN PRN Reason: Pain, Mild (1-3) Aspirin (Ecotrin) 81 mg PO DAILY [facility] Last Admin: 09/14/18 09:21 Dose: 81 mg Dextrose (Dextrose 50% Inj) 0 ml IV STAT PRN; Protocol PRN Reason: Hypoglycemia Protocol Dextrose (Glutose 15) 0 gm PO ONCE PRN; Protocol PRN Reason: Hypoglycemia Protocol Glipizide (Glucotrol) 5 mg PO DAILY [facility] Last Admin: 09/14/18 09:21 Dose: 5 mg Glucagon (Glucagen Diagnostic Kit) 0 mg IM STAT PRN; Protocol PRN Reason: Hypoglycemia Protocol Heparin Sodium (Porcine) (Heparin) 5,000 units SC Q12 [facility] Last Admin: 09/14/18 09:21 Dose: 5,000 units Vancomycin/Sodium Chloride (Vancomycin 1 Gm/Ns 200 Ml) 1 gm in 200 mls @ 133 ml s/hr IVPB Q24H [facility]; Protocol Stop: 09/15/18 14:01 Last Admin: 09/14/18 14:08 Dose: 133 mls/hr Cefepime HCl (Maxipime Iv 1 Gm Premix) 1 gm in 50 mls @ 100 mls/hr IVPB Q24H [facility]; Protocol Last Admin: 09/14/18 14:07 Dose: 100 mls/hr Insulin Aspart (Novolog) 0 unit SC ACHS [facility]; Protocol Last Admin: 09/14/18 16:54 Dose: Not Given Metformin HCl (Glucophage Xr) 500 mg PO BID [facility] Last Admin: 09/14/18 17:20 Dose: Not Given Rosuvastatin Calcium (Crestor) 10 mg PO HS [facility] Last Admin: 09/13/18 21:19 Dose: 10 mg Sitagliptin Phosphate (Januvia) 50 mg PO DAILY [facility] Last Admin: 09/14/18 09:21 Dose: 50 mg - Labs Labs: 09/11/18 07:25 09/12/18 11:15 PT 11.6 SECONDS (9.7-12.2) 09/11/18 07:25 INR 1.1 09/11/18 07:25 APTT 38.0 SECONDS (21-34) H 09/11/18 07:25 - Constitutional Appears: Well - Head Exam Head Exam: ATRAUMATIC, NORMAL INSPECTION, NORMOCEPHALIC - Eye Exam Eye Exam: EOMI, Normal appearance, PERRL Pupil Exam: NORMAL ACCOMODATION, PERRL - ENT Exam ENT Exam: Mucous Membranes Moist, Normal Exam - Neck Exam Neck Exam: Full ROM, Normal Inspection. 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
--- NOTE | 2018-09-15 06:36 | OP ---
PROCEDURE DATE: 09/11/2018 SURGEON: Murphy Mckay DPM ASSISTANTS: Breanne López, PGY-1 and Sarahi Ramirez DPM, PGY-2 TYPE OF ANESTHESIA: IV sedation with local. ANESTHESIOLOGIST: Bolivar Tidwell MD PREOPERATIVE DIAGNOSIS: Left hallux dry gangrene. POSTOPERATIVE DIAGNOSIS: Left hallux dry gangrene. NAME OF PROCEDURE: Left hallux amputation with partial metatarsal head resection. INDICATIONS: The patient is an 83-year-old female with the above diagnosis. The patient has exhausted all conservative treatment at this time and now requires surgical intervention. The patient signed the consent after careful explanation of risks, benefits, complications, and alternatives to the surgical procedure. No guarantees were given nor implied. NPO status was confirmed prior to taking the patient to the operating room. PREPARATION: The patient was brought into the operating room and placed on the operating room table in a supine position. Time-out was performed for identification of the correct patient and procedure. After induction of IV sedation, 20 mL of 1:1 mixture of 0.5% Marcaineplain and 1% lidocaine plain was added in a local block fashion to the left foot. Next, the left foot was then prepped and draped in a normal sterile manner and the procedure began. No tourniquet was used during this procedure. DESCRIPTION OF THE PROCEDURE: Attention was drawn to the distal tip of the left hallux where a distal circumferential racquet-type incision was made using a #15 blade at the level of the metatarsophalangeal joint. The incision was then extended down to the subcutaneous layers down to the level of the bone extending into the metatarsophalangeal joint. Using a bone clamp to stabilize the hallux, the proximal phalanx was disarticulated from the foot at the level of the MPJ and sent to Pathology. Next, utilizing a sagittal saw, the cartilage of the first metatarsal head was resected and passed from the operative field and sent to Pathology with a clean margin. Next, utilizing a #15 blade, all necrotic and nonviable tissues were then excisionally debrided from the surgical site with additional soft tissue removed to allow for adequate skin closure without tension. Next, the wound was copiously irrigated with normal sterile saline. Next, a Mcdowell drain was placed into the surgical site, and the surgical site was then closed with 3-0 Vicryl for deep tissue and 3-0 Prolene for skin. The surgical site was then dressed with Xeroform, DSD, ABD, Kerlix, and light Doron. POSTOPERATIVE CONDITION: The patient tolerated the anesthesia and procedure well and was escorted to the recovery room with all vital signs stable and neurovascular status intact to the left foot. The patient is to remain nonweightbearing to the left foot. The patient will return to the floors, and Podiatry will continue to follow. Upon discharge, the patient will follow up with Dr. Murphy Mckay in the office. Breanne López PGY1 Murphy Mckay DPM [facility]
--- NOTE | 2018-09-16 12:16 | CP.PCM.DIS ---
Provider - Provider Date of Admission: 09/08/18 11:14 Attending physician: Diamante Groves MD Primary care physician: anna marie ortega Consults: 09/08/18 11:15 Physician Consult Routine Comment: left great toe gangrene Consulting Provider: Murphy Mckay Consulting Physician: Murphy Mckay Reason for Consult: podiatry 09/08/18 11:16 Physician Consult Routine Comment: left great toe gangrene Consulting Provider: See Brunner Consulting Physician: See Brunner Reason for Consult: id 09/08/18 11:23 Physician Consult Routine Comment: left great toe gangrene Consulting Provider: Dk Hobson Jr. Consulting Physician: Dk Hobson Jr. 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 (6) Osteoarthritis Status: Acute (7) Osteoporosis Status: Acute Hospital Course - Lab Results Lab Results: Micro Results 09/08/18 10:57 Blood Blood Culture - Final NO GROWTH AFTER 5 DAYS 09/08/18 10:57 Blood Gram Stain - Final TEST NOT PERFORMED 09/08/18 10:57 Blood Blood Culture - Final NO GROWTH AFTER 5 DAYS 09/08/18 10:57 Blood Gram Stain - Final TEST NOT PERFORMED 09/08/18 12:23 Toe Gram Stain - Final 09/08/18 12:23 Toe Wound Culture - Final Pseudomonas Aeruginosa Methicillin Resistant S Aureus Most Recent Lab Values WBC 6.7 K/uL (4.8-10.8) 09/11/18 07:25 RBC 3.70 Mil/uL (3.80-5.20) L 09/11/18 07:25 Hgb 10.6 g/dL (11.0-16.0) L 09/11/18 07:25 Hct 31.3 % (34.0-47.0) L 09/11/18 07:25 MCV 84.8 fL (81.0-99.0) 09/11/18 07:25 MCH 28.7 pg (27.0-31.0) 09/11/18 07:25 MCHC 33.9 g/dL (33.0-37.0) 09/11/18 07:25 RDW 16.2 % (11.5-14.5) H 09/11/18 07:25 Plt Count 480 K/uL (130-400) H 09/11/18 07:25 MPV 7.4 fL (7.2-11.7) 09/11/18 07:25 Neut % (Auto) 56.6 % (50.0-75.0) 09/11/18 07:25 Lymph % (Auto) 29.1 % (20.0-40.0) 09/11/18 07:25 [place] % (Auto) 5.9 % (0.0-10.0) 09/11/18 07:25 Eos % (Auto) 7.4 % (0.0-4.0) H 09/11/18 07:25 Baso % (Auto) 1.0 % (0.0-2.0) 09/11/18 07:25 Neut # (Auto) 3.8 K/uL (1.8-7.0) 09/11/18 07:25 Lymph # (Auto) 2.0 K/uL (1.0-4.3) 09/11/18 07:25 [place] # (Auto) 0.4 K/uL (0.0-0.8) 09/11/18 07:25 Eos # (Auto) 0.5 K/uL (0.0-0.7) 09/11/18 07:25 Baso # (Auto) 0.1 K/uL (0.0-0.2) 09/11/18 07:25 ESR 48 mm/hr (0-20) H 09/08/18 10:46 PT 11.6 SECONDS (9.7-12.2) 09/11/18 07:25 INR 1.1 09/11/18 07:25 APTT 38.0 SECONDS (21-34) H 09/11/18 07:25 pO2 37 mm/Hg (30-55) 09/08/18 10:55 VBG pH 7.32 (7.32-7.43) 09/08/18 10:55 VBG pCO2 25 mmHg (40-60) L 09/08/18 10:55 VBG HCO3 15.2 mmol/L 09/08/18 10:55 VBG Total CO2 13.7 mmol/L (22-28) L 09/08/18 10:55 VBG O2 Sat (Calc) 75.4 % (40-65) H 09/08/18 10:55 VBG Base Excess -11.4 mmol/L (0.0-2.0) L 09/08/18 10:55 VBG Potassium 2.4 mmol/L (3.6-5.2) L* 09/08/18 10:55 Sodium 142.0 mmol/l (132-148) 09/08/18 10:55 Chloride 121.0 mmol/L (98-107) H 09/08/18 10:55 Glucose 120 mg/dl (65-105) H 09/08/18 10:55 Lactate 1.1 mmol/L (0.7-2.1) 09/08/18 10:55 Crit Value Called To 09/08/18 10:55 Crit Value Called By Marycruz oropeza rcp 09/08/18 10:55 Crit Value Read Back Y 09/08/18 10:55 Blood Gas Notified Time 1102 09/08/18 10:55 Sodium 138 mmol/L (132-148) 09/12/18 11:15 Potassium 5.2 mmol/L (3.6-5.2) 09/12/18 11:15 Chloride 100 mmol/L (98-107) 09/12/18 11:15 Carbon Dioxide 28 mmol/L (22-30) 09/12/18 11:15 Anion Gap 16 (10-20) 09/12/18 11:15 BUN 25 mg/dL (7-17) H 09/12/18 11:15 Creatinine 1.5 mg/dL (0.7-1.2) H 09/12/18 11:15 Est GFR ( Amer) 40 09/12/18 11:15 Est GFR (Non-Af Amer) 33 09/12/18 11:15 POC Glucose (mg/dL) 82 mg/dL (65-110) 09/14/18 16:17 Random Glucose 159 mg/dL (65-105) H D 09/12/18 11:15 Calcium 9.1 mg/dl (8.6-10.4) 09/12/18 11:15 Total Bilirubin 0.3 mg/dL (0.2-1.3) 09/10/18 06:30 AST 18 U/L (14-36) 09/10/18 06:30 ALT 12 U/L (9-52) 09/10/18 06:30 Alkaline Phosphatase 41 U/L (38-126) 09/10/18 06:30 Total Creatine Kinase 31 U/L (30-135) 09/08/18 10:46 Total Protein 6.9 g/dL (6.3-8.3) 09/10/18 06:30 Albumin 3.8 g/dL (3.5-5.0) 09/10/18 06:30 Globulin 3.1 gm/dL (2.2-3.9) 09/10/18 06:30 Albumin/Globulin Ratio 1.2 (1.0-2.1) 09/10/18 06:30 Venous Blood Potassium 2.4 mmol/L (3.6-5.2) L* 09/08/18 10:55 - Hospital Course Hospital Course: Patient for the discharge she will go to the rehab Patient underwent left first toe amputation today is POD day 3 for the discharge patient agreed Discussed with the family P.o. antibiotic Status post IV Vanco and status post IV cefepime I am medication reconciliation done Discussed with the family Discussed with the patient Plan of care discussed LLE focused exam VASC: DP and PT pulses palpable 2/4; cap refill approx 3 seconds to digits 2-5; temp gradient warm to warm from proximal to distal; minimal periwound edema present DERM: left hallux amputation site appears well coapted with sutures intact and no signs of dehiscence or infection, no bleeding, pus, or drainage from site, no malodor; site warm and dry, minimal periwound erythema ORTHO: hallux amputation noted, no pain upon palpation of incision site NEURO: gross and protective sensation diminished Moderate to high complexity of care. Plan of care discussed with patient &/or family & staff. Medications reviewed and reconciled. Labs reviewed. Vitals reviewed. Discharge Exam - Head Exam Head Exam: ATRAUMATIC, NORMAL INSPECTION, NORMOCEPHALIC - ENT Exam ENT Exam: Mucous Membranes Moist - Respiratory Exam Respiratory Exam: Decreased Breath Sounds, Clear to PA & Lateral - Cardiovascular Exam Cardiovascular Exam: REGULAR RHYTHM, +S1, +S2 - GI/Abdominal Exam GI & Abdominal Exam: Diminished Bowel Sounds, Distended, Soft - Rectal Exam Rectal Exam: Deferred - Neurological Exam Neurological exam: Oriented x3 Discharge Plan - Discharge Medications Prescriptions: Cefepime 1gm in NS 100ml [Maxipime 1gm] 1 gm IVPB DAILY 5 Days bag Vancomycin/0.9 % Sod Chloride [Vanco 1 Gram/150 ml-0.9% NaCl] 1 gm IV DAILY 5 Days plast..bag - Follow Up Plan Condition: STABLE Disposition: REHAB FACILITY/REHAB UNIT Instructions: MRSA (DC), Gangrene (DC), Necrotizing Fasciitis (DC), Necrotizing Fasciitis (GEN), Cellulitis (DC), Cellulitis (GEN) Additional Instructions: CONTINUE WITH IV ABX ORDERED FOR 5 MORE DAYS /SEND WITH STRICT NWB TO LLE, OOB TO BEDSIDE COMMODE ONLY LLE WOUND CARE DAILY WITH BETADINE, TELFA, DSD PODIATRY FOLLOW UP IN 1 WEEK / DR EDGAR TORIBIO LABS: CBC, BMP, VANCO TROUGH LEVEL TOMORROW Referrals: Diamante Groves MD [Staff Provider] -
== END 2018-09-14 21:43 | DRG 256 ==
LOC: C.ER 10:09 → C.9E 11:14 → C.3T 18:05
PROVIDERS: ADMIT Internal Medicine Critical Care Medicine; ATTEND Internal Medicine Critical Care Medicine
PROC: 0QTP0ZZ Resection of Left Metatarsal, Open Approach (ICD-10-PCS; 2018-09-11)
PROC: 0Y6Q0Z0 Detachment at Left 1st Toe, Complete, Open Approach (ICD-10-PCS; principal; 2018-09-11 13:00)
DX: E11.52 Type 2 diabetes mellitus with diabetic peripheral angiopathy with gangrene (principal); L03.90 Cellulitis, unspecified; I96 Gangrene, not elsewhere classified; E78.00 Pure hypercholesterolemia, unspecified; I10 Essential (primary) hypertension; M81.0 Age-related osteoporosis without current pathological fracture; M19.90 Unspecified osteoarthritis, unspecified site; I44.7 Left bundle-branch block, unspecified; E11.65 Type 2 diabetes mellitus with hyperglycemia; Z79.4 Long term (current) use of insulin; Z89.421 Acquired absence of other right toe(s); Z90.49 Acquired absence of other specified parts of digestive tract